=== PATIENT | female | born 1990 | race Hispanic/Latino ===

== ENCOUNTER 2018-01-30 11:53 | Inpatient (IN) | payer MEDICAID, OTHER ==
[2018-01-30] MEDS ORDERED: NACL 0.9% 1000 ML 2,000 ML IV ONE ×2 (12:36→13:46)
[2018-01-30] MEDS ORDERED: D50W (25GM) Syringe IV PRN (12:45)
[2018-01-30] MEDS ORDERED: ZOFRAN ODT ONE (12:46)
[2018-01-30] MEDS ORDERED: XYLOCAINE 2% INFILTRATI ONE (12:55)
[2018-01-30 12:57] LABS: Basophils # (Auto) 0.1 K/mm3 (0.0-0.1); Basophils % (Auto) 0.7 % (0.0-1.8); Eosinophils # (Auto) 0.1 K/mm3 (0.0-0.4); Eosinophils % (Auto) 0.5 % (0.0-4.3); Lymphocytes # (Auto) 2.5 K/mm3 (1.2-5.4); Lymphocytes % (Auto) 24.8 % (13.4-35.0); Mean Corpuscular HGB Conc 29 % (30-34); Mean Corpuscular Hemoglobin 29 pg (28-32); Mean Corpuscular Volume 101 fl (79-97); Monocytes # (Auto) 0.5 K/mm3 (0.0-0.8); Platelet Count 459 K/mm3 (140-440); Red Blood Count 4.27 M/mm3 (3.65-5.03); Red Cell Distribution Width 16.4 % (13.2-15.2)
[2018-01-30 12:58] LABS: Hematocrit 43.2 % (30.3-42.9); Hemoglobin 12.4 gm/dl (10.1-14.3)
[2018-01-30] MEDS ORDERED: ZOFRAN IV ONE (12:58)
[2018-01-30] MEDS ORDERED: MORPHINE IV ONE (12:58)
[2018-01-30] MEDS ORDERED: HumuLIN R 100 UNITS in NACL 0.9% 99 ML IV SCH (13:00)
[2018-01-30 13:16] LABS: Calcium 9.5 mg/dL (8.4-10.2)
[2018-01-30 13:17] LABS: INR 0.98 (0.87-1.13)
[2018-01-30 13:18] LABS: Partial Thromboplastin Time 22.4 Sec. (24.2-36.6)
[2018-01-30 13:20] LABS: Creatine Kinase MB 1.2 ng/mL (0.0-4.0)
[2018-01-30 13:21] LABS: Bilirubin,Direct 0.2 mg/dL (0-0.2)
[2018-01-30] MEDS ORDERED: PROTONIX IV ONE (13:30)
--- NOTE | 2018-01-30 13:47 | History and Physical Report ---
History of Present Illness Chief complaint: She is sick again History of present illness: 27 YO Female with DM, HTN, Seizure Disorder, Psychosis, Nicotine Dependence, IGA Deficiency, MVP, Medication Noncompliance presents to ED for evaluation. Pt is confused and unable to provide history. Pt history provided by family whi is at bedside during exam and interview. As per family, the patient was released from the ICU as [facility] on Saturday S/P treatment for DKA. The patient has not taken her medication since discharge. Pt was noticed by family to be confused, and ill appearing. Pt was transported to [facility] by family. Pt seen and evaluated in ED and found to have DKA with coma, as well as severe metabolic acidosis. No reports of fever, chills, CP, Palpitation, NVD, Syncope, BRBPR, Seizures, Trauma, or recent ill contacts. Past History Past Medical History: diabetes, hypertension, seizures, other (DM, HTN, Seizure Disorder, Psychosis, Nicotine Dependence, IGA Deficiency, MVP, Medication Noncompliance) Past Surgical History: cholecystectomy, tonsillectomy Social history: single, smoking Family history: hypertension Medications and Allergies Allergies Allergy/AdvReac Type Severity Reaction Status Date / Time clarithromycin [From Biaxin] Allergy Hives Verified 09/06/15 18:49 erythromycin base Allergy Hives Verified 09/06/15 18:49 ketorolac [From Toradol] Allergy Bleeding Verified 01/30/18 12:00 nalbuphine HCl [From Nubain] Allergy Hives Verified 01/19/16 22:28 Penicillins Allergy Hives Verified 09/06/15 18:49 Sulfa (Sulfonamide Allergy Hives Verified 09/06/15 18:49 Antibiotics) tramadol Allergy Angioedema Verified 01/30/18 12:00 Home Medications Medication Instructions Recorded Confirmed Last Taken Type Cyclobenzaprine [Flexeril 10 MG 10 mg PO TID PRN #15 tablet 04/04/16 Unknown Rx TAB] HYDROcodone/APAP 5-325 [[place] 1 each PO Q6HR PRN #15 tablet 04/04/16 Unknown Rx 5-325 mg TAB] Insulin Aspart [Novolog] 5 unit SQ AC #100 ml 04/04/16 Unknown Rx Insulin Glulisine [Apidra] 1 dose SUB-Q ACHS #100 units 04/04/16 Unknown Rx Levofloxacin [Levaquin] 750 mg PO QDAY #5 tablet 04/04/16 Unknown Rx Nicotine [Habitrol] 14 mg TD QDAY #14 patch 04/04/16 Unknown Rx levETIRAcetam [Keppra TAB] 500 mg PO BID #60 tablet 04/04/16 Unknown Rx Active Meds: Active Medications Acetaminophen/Hydrocodone Bitart ([place] 5/325) 1 each PO Q6HR PRN PRN Reason: Pain Cyclobenzaprine HCl (Flexeril) 10 mg PO TID PRN PRN Reason: back pain Dextrose (D50w (25gm) Syringe) 0 ml IV ONCE PRN PRN Reason: Hypoglycemia Sodium Chloride (Nacl 0.9% 1000 Ml) 2,000 mls @ 999 mls/hr IV BOLUS ONE Stop: 01/30/18 14:36 Last Admin: 01/30/18 12:45 Dose: 999 mls/hr Insulin Human Regular 100 (units/ Sodium Chloride) 100 mls @ 1 mls/hr IV TITR LESTER; Protocol Aztreonam 500 mg/ Sodium (Chloride) 50 mls @ 50 mls/hr IV Q12HR LESTER; Protocol Levetiracetam (Keppra) 500 mg PO BID LESTER Nicotine (Habitrol) 14 mg TD QDAY LESTER Sodium Chloride (Sodium Chloride Flush Syringe 10 Ml) 10 ml IV BID LESTER Sodium Chloride (Sodium Chloride Flush Syringe 10 Ml) 10 ml IV PRN PRN PRN Reason: LINE FLUSH Vancomycin HCl (Vancomycin Pharmacy To Dose) 1 each IV PKCONSULT LESTER; Protocol Review of Systems ROS unobtainable: due to mental status Exam - Constitutional Vitals: Temp Pulse Resp BP Pulse Ox 138 H 34 H 134/67 100 01/30/18 12:45 01/30/18 12:45 01/30/18 12:45 01/30/18 12:45 General appearance: Present: severe distress - EENT Eyes: Present: miosis - Neck Neck: Present: supple, normal ROM - Respiratory Respiratory: bilateral: CTA - Cardiovascular Rhythm: other (tachycardia) Heart Sounds: Present: S1 & S2. Absent: rub, click - Extremities Extremities: pulses symmetrical, No edema Peripheral Pulses: within normal limits - Abdominal General gastrointestinal: Present: soft, non-tender, non-distended, normal bowel sounds Female genitourinary: Present: normal - Integumentary Integumentary: Present: clear, dry, clammy, decreased turgor - Musculoskeletal Musculoskeletal: generalized weakness - Psychiatric Psychiatric: no intact judgment & insight, no memory intact - Neurologic Neurologic: moves all extremities, no gait normal Results - Labs CBC & Chem 7: 01/30/18 12:28 01/30/18 15:06 Labs: Abnormal lab results 01/30/18 01/30/18 01/30/18 Range/Units 12:28 12:28 12:28 Hct 43.2 H (30.3-42.9) % MCV 101 H (79-97) fl MCHC 29 L (30-34) % RDW 16.4 H (13.2-15.2) % Plt Count 459 H (140-440) K/mm3 APTT (24.2-36.6) Sec. VBG pH 7.080 L* (7.320-7.420) Sodium (137-145) mmol/L Potassium (3.6-5.0) mmol/L Chloride (98-107) mmol/L Carbon Dioxide (22-30) mmol/L Glucose (65-100) mg/dL Phosphorus (2.5-4.5) mg/dL Total Creatine Kinase 23 L (30-135) units/L CK-MB (CK-2) Rel Index 5.2 H (0-4) Lipase 9 L (13-60) units/L 01/30/18 01/30/18 Range/Units 12:28 12:49 Hct (30.3-42.9) % MCV (79-97) fl MCHC (30-34) % RDW (13.2-15.2) % Plt Count (140-440) K/mm3 APTT 22.4 L (24.2-36.6) Sec. VBG pH (7.320-7.420) Sodium 132 L (137-145) mmol/L Potassium 5.2 H (3.6-5.0) mmol/L Chloride 86.2 L (98-107) mmol/L Carbon Dioxide 3 L* (22-30) mmol/L Glucose 614 H* (65-100) mg/dL Phosphorus 5.40 H (2.5-4.5) mg/dL Total Creatine Kinase (30-135) units/L CK-MB (CK-2) Rel Index (0-4) Lipase (13-60) units/L Assessment and Plan - Patient Problems (1) DKA, type 1 Current Visit: Yes Status: Acute Qualifiers: Diabetes mellitus complication detail: with coma Qualified Code(s): E10.11 - Type 1 diabetes mellitus with ketoacidosis with coma Plan to address problem: DKA Protocol: IVF resuscitation, insulin drip, monitor uop q shift,monitor anion gap, serial BMP, monitor serum potassium, replete as per protocol, The high probability of a clinically significant, sudden or life threatening deterioration of the [endocrine, renal,pulmonary, neuro ] system(s) required my full and direct attention, intervention and personal management. The aggregate critical care time was [65] minutes. This time is in addition to time spent performing reported procedures but includes the following: [x] Data Review and interpretation [x] Patient assessment and monitoring of vital signs [x] Documentation [x] Medication orders and management (2) Encephalopathy Current Visit: Yes Status: Acute Plan to address problem: CT Head, neuro checks, seizure precautions, treat DKA (3) Metabolic acidosis Current Visit: Yes Status: Acute Plan to address problem: IVF resuscitation, treat dka, serial bmp, (4) Psychosis Current Visit: Yes Status: Acute Qualifiers: Psychosis type: brief psychotic disorder Qualified Code(s): F23 - Brief psychotic disorder Plan to address problem: Psych consulted for evaluation, and medication recommendations, (5) Seizure Current Visit: Yes Status: Acute Plan to address problem: IV keppra therapy, change to PO when patient tolerating diet. (6) DVT prophylaxis Current Visit: Yes Status: Acute Plan to address problem: SCD to BLE, while in bed.
[2018-01-30] MEDS ORDERED: VANCOMYCIN PHARMACY TO DOSE IV SCH (14:00)
--- NOTE | 2018-01-30 14:00 | Emergency Department Report ---
ED General Adult HPI - General Chief complaint: Hyperglycemia Stated complaint: HYPERGLYCEMIA Time Seen by Provider: 01/30/18 12:33 Source: patient Mode of arrival: Ambulatory Limitations: No Limitations - History of Present Illness Initial comments: The patient is a 27-year-old female insulin-dependent diabetic who was released from the ICU as [facility] on Saturday. The family states that she was in the ICU for 8 days because her "sugar was up". They deny being told that the patient was suffering from any sort of infection. The patient has a paucity of peripheral veins by nursing staff. In fact only could find was accessed in her right shoulder 22-gauge. I asked the patient if she had any sort of PICC line or central line at [place] she answered no. She also states that she has never suffered from any life-threatening infections. She states that she was supposed to have endoscopy but has not arranged for that yet and has an appointment coming up with GI. She complains of abdominal pain. She states that her sugar has been quite elevated for the last at least 2 days. She states "my insulin is not working". She denies fever or chills. She is obviously Kussmaul breathing and somewhat confused but able to answer direct questions. -: days(s) Location: abdomen Associated Symptoms: nausea/vomiting (no apparent GI bleeding. She) - Related Data Previous Rx's Medication Instructions Recorded Last Taken Type Cyclobenzaprine [Flexeril 10 MG 10 mg PO TID PRN #15 tablet 04/04/16 Unknown Rx TAB] HYDROcodone/APAP 5-325 [[place] 1 each PO Q6HR PRN #15 tablet 04/04/16 Unknown Rx 5-325 mg TAB] Insulin Aspart [Novolog] 5 unit SQ AC #100 ml 04/04/16 Unknown Rx Insulin Glulisine [Apidra] 1 dose SUB-Q ACHS #100 units 04/04/16 Unknown Rx Levofloxacin [Levaquin] 750 mg PO QDAY #5 tablet 04/04/16 Unknown Rx Nicotine [Habitrol] 14 mg TD QDAY #14 patch 04/04/16 Unknown Rx levETIRAcetam [Keppra TAB] 500 mg PO BID #60 tablet 04/04/16 Unknown Rx Allergies Allergy/AdvReac Type Severity Reaction Status Date / Time clarithromycin [From Biaxin] Allergy Hives Verified 09/06/15 18:49 erythromycin base Allergy Hives Verified 09/06/15 18:49 ketorolac [From Toradol] Allergy Bleeding Verified 01/30/18 12:00 nalbuphine HCl [From Nubain] Allergy Hives Verified 01/19/16 22:28 Penicillins Allergy Hives Verified 09/06/15 18:49 Sulfa (Sulfonamide Allergy Hives Verified 09/06/15 18:49 Antibiotics) tramadol Allergy Angioedema Verified 01/30/18 12:00 ED Review of Systems ROS: Stated complaint: HYPERGLYCEMIA Other details as noted in HPI Comment: Unobtainable due to pts medical conditions (Limited secondary to mental status) Gastrointestinal: abdominal pain ED Past Medical Hx - Past Medical History Hx Hypertension: Yes Hx Congestive Heart Failure: No Hx Diabetes: Yes Hx Seizures: Yes Hx Asthma: Yes Additional medical history: IgA deficiency, heart murmur, mitral valve prolapse , left ovarian cyst - Surgical History Hx Cholecystectomy: Yes Additional Surgical History: 9 sets of tubes in ears. Tonsilectomy and adenoidectomy. - Social History Smoking Status: Current Every Day Smoker Substance Use Type: None - Medications Home Medications: Home Medications Medication Instructions Recorded Confirmed Last Taken Type Cyclobenzaprine [Flexeril 10 MG 10 mg PO TID PRN #15 tablet 04/04/16 Unknown Rx TAB] HYDROcodone/APAP 5-325 [[place] 1 each PO Q6HR PRN #15 tablet 04/04/16 Unknown Rx 5-325 mg TAB] Insulin Aspart [Novolog] 5 unit SQ AC #100 ml 04/04/16 Unknown Rx Insulin Glulisine [Apidra] 1 dose SUB-Q ACHS #100 units 04/04/16 Unknown Rx Levofloxacin [Levaquin] 750 mg PO QDAY #5 tablet 04/04/16 Unknown Rx Nicotine [Habitrol] 14 mg TD QDAY #14 patch 04/04/16 Unknown Rx levETIRAcetam [Keppra TAB] 500 mg PO BID #60 tablet 04/04/16 Unknown Rx ED Physical Exam - General Limitations: No Limitations, Altered Mental Status General appearance: alert, in no apparent distress - Head Head exam: Present: atraumatic, normocephalic - Eye Eye exam: Present: normal appearance, PERRL, EOMI. Absent: scleral icterus - ENT ENT exam: Present: mucous membranes dry - Neck Neck exam: Present: normal inspection. Absent: tenderness, meningismus - Respiratory Respiratory exam: Present: normal lung sounds bilaterally, other (Kussmaul breathing). Absent: respiratory distress - Cardiovascular Cardiovascular Exam: Present: normal rhythm, tachycardia. Absent: systolic murmur, diastolic murmur, rubs, gallop - GI/Abdominal GI/Abdominal exam: Present: soft, tenderness (some discomfort noted left lower quadrant), normal bowel sounds. Absent: distended, guarding, rebound, rigid - Extremities Exam Extremities exam: Present: normal inspection - Back Exam Back exam: Present: other (multiple abrasions noted on the patient's back). Absent: CVA tenderness (R), CVA tenderness (L), muscle spasm, paraspinal tenderness, vertebral tenderness - Neurological Exam Neurological exam: Present: CN II-XII intact (as tested). Absent: motor sensory deficit - Psychiatric Psychiatric exam: Present: agitated, anxious - Skin Skin exam: Present: warm, dry, normal color, abrasion. Absent: rash ED Course Vital Signs 01/30/18 01/30/18 01/30/18 12:00 12:45 14:03 Pulse Rate 142 H 138 H 120 H Respiratory 24 34 H 24 Rate Blood Pressure 123/68 Blood Pressure 134/67 117/78 [Left] O2 Sat by Pulse 100 100 100 Oximetry - Reevaluation(s) Reevaluation #1: Patient is obviously signature volume depleted. She was given several liters of normal saline. Insulin drip was initiated. Empiric antibiotics were ordered after consultation with the hospitalist Dr. Rasmussen. I do not see a source infection. The urinalysis was not yet available. 01/30/18 14:03 - Central Line Placement Left IJ Consent Obtained: verbal consent Time Out Performed: No Patient Placed on Monitor/Pulse Ox: Yes MD Prep: mask, gown, gloves Central Line Prep: Chlorhexidine scrub Local Anesthesia Used: Lidocaine 1% Amount of Anesthesia Used (mls): 4 Ultrasound Used for Placement: No Central Line Lumen Inserted: triple Bloods Obtained for Lab: No Central Line Position: good blood return, all ports aspirated, flus, sutured in place with 3-0 Dressing Applied: Tegaderm Post Procedure X-Ray: tip of catheter in good p Patient Tolerated Procedure: well Complications: none Additional Comments: Single puncture dark red nonpulsatile blood. Seldinger technique without difficulty. ED Medical Decision Making - Lab Data Result diagrams: 01/30/18 12:28 01/30/18 12:28 Laboratory Results - last 24 hr 01/30/18 01/30/18 01/30/18 12:28 12:28 12:28 WBC 10.1 RBC 4.27 Hgb 12.4 Hct 43.2 H MCV 101 H MCH 29 MCHC 29 L RDW 16.4 H Plt Count 459 H Lymph % (Auto) 24.8 [place] % (Auto) 5.0 Eos % (Auto) 0.5 Baso % (Auto) 0.7 Lymph # 2.5 [place] # 0.5 Eos # 0.1 Baso # 0.1 Seg Neutrophils % 69.0 Seg Neutrophils # 7.0 PT INR APTT VBG pH 7.080 L* Sodium Potassium Chloride Carbon Dioxide Anion Gap BUN Creatinine Estimated GFR BUN/Creatinine Ratio Glucose Lactic Acid Calcium Phosphorus Magnesium 1.90 Total Bilirubin 0.70 Direct Bilirubin 0.2 Indirect Bilirubin 0.5 AST 17 ALT 14 Alkaline Phosphatase 127 Total Creatine Kinase 23 L CK-MB (CK-2) 1.2 CK-MB (CK-2) Rel Index 5.2 H NT-Pro-B Natriuret Pep 85.52 Total Protein 7.3 Albumin 4.0 Albumin/Globulin Ratio 1.2 Lipase 9 L Urine Bilirubin Urine RBC (Auto) U Epithel Cells (Auto) 01/30/18 01/30/18 01/30/18 12:28 12:49 12:49 WBC RBC Hgb Hct MCV MCH MCHC RDW Plt Count Lymph % (Auto) [place] % (Auto) Eos % (Auto) Baso % (Auto) Lymph # [place] # Eos # Baso # Seg Neutrophils % Seg Neutrophils # PT 13.5 INR 0.98 APTT 22.4 L VBG pH Sodium 132 L Potassium 5.2 H Chloride 86.2 L Carbon Dioxide 3 L* Anion Gap 48 BUN 13 Creatinine 1.1 Estimated GFR 59 BUN/Creatinine Ratio 12 Glucose 614 H* Lactic Acid 1.70 Calcium 9.5 Phosphorus 5.40 H Magnesium 1.90 Total Bilirubin Direct Bilirubin Indirect Bilirubin AST ALT Alkaline Phosphatase Total Creatine Kinase CK-MB (CK-2) CK-MB (CK-2) Rel Index NT-Pro-B Natriuret Pep Total Protein Albumin Albumin/Globulin Ratio Lipase Urine Bilirubin Urine RBC (Auto) U Epithel Cells (Auto) 01/30/18 13:54 WBC RBC Hgb Hct MCV MCH MCHC RDW Plt Count Lymph % (Auto) [place] % (Auto) Eos % (Auto) Baso % (Auto) Lymph # [place] # Eos # Baso # Seg Neutrophils % Seg Neutrophils # PT INR APTT VBG pH Sodium Potassium Chloride Carbon Dioxide Anion Gap BUN Creatinine Estimated GFR BUN/Creatinine Ratio Glucose Lactic Acid Calcium Phosphorus Magnesium Total Bilirubin Direct Bilirubin Indirect Bilirubin AST ALT Alkaline Phosphatase Total Creatine Kinase CK-MB (CK-2) CK-MB (CK-2) Rel Index NT-Pro-B Natriuret Pep Total Protein Albumin Albumin/Globulin Ratio Lipase Urine Bilirubin Neg Urine RBC (Auto) 3.0 U Epithel Cells (Auto) 5.0 Laboratory Results - last 24 hr 01/30/18 01/30/18 01/30/18 12:28 12:28 12:28 WBC 10.1 RBC 4.27 Hgb 12.4 Hct 43.2 H MCV 101 H MCH 29 MCHC 29 L RDW 16.4 H Plt Count 459 H Lymph % (Auto) 24.8 [place] % (Auto) 5.0 Eos % (Auto) 0.5 Baso % (Auto) 0.7 Lymph # 2.5 [place] # 0.5 Eos # 0.1 Baso # 0.1 Seg Neutrophils % 69.0 Seg Neutrophils # 7.0 PT INR APTT VBG pH 7.080 L* Sodium Potassium Chloride Carbon Dioxide Anion Gap BUN Creatinine Estimated GFR BUN/Creatinine Ratio Glucose Lactic Acid Calcium Phosphorus Magnesium 1.90 Total Bilirubin 0.70 Direct Bilirubin 0.2 Indirect Bilirubin 0.5 AST 17 ALT 14 Alkaline Phosphatase 127 Total Creatine Kinase 23 L CK-MB (CK-2) 1.2 CK-MB (CK-2) Rel Index 5.2 H NT-Pro-B Natriuret Pep 85.52 Total Protein 7.3 Albumin 4.0 Albumin/Globulin Ratio 1.2 Lipase 9 L Urine Color Urine Turbidity Urine pH Ur Specific [place] Urine Protein Urine Glucose (UA) Urine Ketones Urine Blood Urine Nitrite Urine Bilirubin Urine Urobilinogen Ur Leukocyte Esterase Urine WBC (Auto) Urine RBC (Auto) U Epithel Cells (Auto) Urine Mucus Urine HCG, Qual Urine Opiates Screen Urine Methadone Screen Ur Barbiturates Screen Ur Phencyclidine Scrn Ur Amphetamines Screen U Benzodiazepines Scrn Urine Cocaine Screen U Marijuana (THC) Screen Drugs of Abuse Note 01/30/18 01/30/18 01/30/18 12:28 12:49 12:49 WBC RBC Hgb Hct MCV MCH MCHC RDW Plt Count Lymph % (Auto) [place] % (Auto) Eos % (Auto) Baso % (Auto) Lymph # [place] # Eos # Baso # Seg Neutrophils % Seg Neutrophils # PT 13.5 INR 0.98 APTT 22.4 L VBG pH Sodium 132 L Potassium 5.2 H Chloride 86.2 L Carbon Dioxide 3 L* Anion Gap 48 BUN 13 Creatinine 1.1 Estimated GFR 59 BUN/Creatinine Ratio 12 Glucose 614 H* Lactic Acid 1.70 Calcium 9.5 Phosphorus 5.40 H Magnesium 1.90 Total Bilirubin Direct Bilirubin Indirect Bilirubin AST ALT Alkaline Phosphatase Total Creatine Kinase CK-MB (CK-2) CK-MB (CK-2) Rel Index NT-Pro-B Natriuret Pep Total Protein Albumin Albumin/Globulin Ratio Lipase Urine Color Urine Turbidity Urine pH Ur Specific [place] Urine Protein Urine Glucose (UA) Urine Ketones Urine Blood Urine Nitrite Urine Bilirubin Urine Urobilinogen Ur Leukocyte Esterase Urine WBC (Auto) Urine RBC (Auto) U Epithel Cells (Auto) Urine Mucus Urine HCG, Qual Urine Opiates Screen Urine Methadone Screen Ur Barbiturates Screen Ur Phencyclidine Scrn Ur Amphetamines Screen U Benzodiazepines Scrn Urine Cocaine Screen U Marijuana (THC) Screen Drugs of Abuse Note 01/30/18 01/30/18 13:54 13:54 WBC RBC Hgb Hct MCV MCH MCHC RDW Plt Count Lymph % (Auto) [place] % (Auto) Eos % (Auto) Baso % (Auto) Lymph # [place] # Eos # Baso # Seg Neutrophils % Seg Neutrophils # PT INR APTT VBG pH Sodium Potassium Chloride Carbon Dioxide Anion Gap BUN Creatinine Estimated GFR BUN/Creatinine Ratio Glucose Lactic Acid Calcium Phosphorus Magnesium Total Bilirubin Direct Bilirubin Indirect Bilirubin AST ALT Alkaline Phosphatase Total Creatine Kinase CK-MB (CK-2) CK-MB (CK-2) Rel Index NT-Pro-B Natriuret Pep Total Protein Albumin Albumin/Globulin Ratio Lipase Urine Color Yellow Urine Turbidity Clear Urine pH 5.0 Ur Specific [place] 1.016 Urine Protein <15 mg/dl Urine Glucose (UA) >=500 Urine Ketones 80 Urine Blood Neg Urine Nitrite Neg Urine Bilirubin Neg Urine Urobilinogen < 2.0 Ur Leukocyte Esterase Neg Urine WBC (Auto) 1.0 Urine RBC (Auto) 3.0 U Epithel Cells (Auto) 5.0 Urine Mucus Few Urine HCG, Qual Negative Urine Opiates Screen Presumptive positive Urine Methadone Screen Presumptive negative Ur Barbiturates Screen Presumptive negative Ur Phencyclidine Scrn Presumptive negative Ur Amphetamines Screen Presumptive positive U Benzodiazepines Scrn Presumptive negative Urine Cocaine Screen Presumptive negative U Marijuana (THC) Screen Presumptive negative Drugs of Abuse Note Disclamer - EKG Data -: EKG Interpreted by Me EKG shows normal: sinus rhythm - EKG Data Interpretation: other (probably insignificant Q's inferior leads. Increased voltage consider LVH. Nonspecific ST T wave changes. Consider hyperkalemia. Sinus tachycardia. Normal axis.) Critical Care Time: Yes Critical care time in (mins) excluding proc time.: 110 Critical care attestation.: If time is entered above; I have spent that time in minutes in the direct care of this critically ill patient, excluding procedure time. ED Disposition Clinical Impression: DKA, type 1 Qualifiers: Diabetes mellitus complication detail: with coma Qualified Code(s): E10.11 - Type 1 diabetes mellitus with ketoacidosis with coma Altered mental status Qualifiers: Altered mental status type: delirium Qualified Code(s): R41.0 - Disorientation , unspecified Disposition: DC-09 OP ADMIT IP TO THIS HOSP Is pt being admited?: Yes Does the pt Need Aspirin: Yes Condition: Stable Instructions: Diabetic Ketoacidosis (ED) Time of Disposition: 14:55
[2018-01-30] MEDS ORDERED: BOOSTRIX IM ONE (14:02)
[2018-01-30 14:03] LABS: Bilirubin,Urine NEG (Negative); Blood,Urine NEG (Negative); Color,Urine Yellow (Yellow); Protein,Urine <15 mg/dL mg/dL (Negative); Urobilinogen,Urine < 2.0 mg/dL (<2.0)
[2018-01-30 14:04] LABS: HCG Qualitative,Urine Negative (Negative); Mucus,Urine FEW /HPF
[2018-01-30 14:11] LABS: Benzodiazepines Screen,Urine PRESUMPTIVE NEGATIVE; Cannabinoid Screen,Urine PRESUMPTIVE NEGATIVE; Cocaine Screen,Urine PRESUMPTIVE NEGATIVE; Methadone Screen,Urine PRESUMPTIVE NEGATIVE
[2018-01-30] MEDS ORDERED: VANCOMYCIN 1,250 MG in NACL 0.9% 250ML 250 ML IV ONE (14:15)
[2018-01-30 14:23] LABS: Amphetamine Screen,Urine PRESUMPTIVE POSITIVE; Opiate Screen,Urine PRESUMPTIVE POSITIVE
[2018-01-30] MEDS: NORCO 5/325 PO PRN ×2 (14:59→23:11)
[2018-01-30] MEDS: FLEXERIL PO PRN ×2 (14:59→23:11)
[2018-01-30] MEDS: NACL 0.9% 1000 ML 1,000 ML IV SCH (15:00)
[2018-01-30 15:50] LABS: BUN/Creatinine Ratio 16; Blood Urea Nitrogen 14 mg/dL (7-17); Hemolysis Index 5
--- NOTE | 2018-01-30 19:12 | XRay Report ---
FINAL REPORT PROCEDURE: Supine AP chest x-ray TECHNIQUE: Chest radiograph anteroposterior view. CPT 48609 HISTORY: nahid upt ordered COMPARISON: No prior studies are available for comparison. FINDINGS: The heart is magnified due to projection appears to be normal size. The pulmonary vasculature appears normal. No evidence of pulmonary edema pleural effusion infiltrate or mass. No evidence of pneumothorax. Left jugular central venous line in place. The tip projects in the proximal SVC. No acute bony abnormalities are identified IMPRESSION: Central venous line in place. No acute abnormalities are identified. No evidence of pneumothorax..
[2018-01-30] MEDS ORDERED: KEPPRA PO SCH (22:00)
[2018-01-30] MEDS ORDERED: AZACTAM IV SCH (22:00)
[2018-01-30] MEDS ORDERED: NACL 0.9% IV SCH (22:00)
[2018-01-30] MEDS: KEPPRA PO SCH (22:15)
[2018-01-30] MEDS: AZACTAM IV SCH (22:15)
[2018-01-30] MEDS: NACL 0.9% IV SCH (22:15)
[2018-01-30] MEDS ORDERED: D5W/0.45% NACL/KCL 20 MEQ 20 MEQ/1,000 ML BAG IV ONE (23:22)
[2018-01-31] MEDS: VANCOMYCIN/0.45 NS 1 GM/250 ML 1 GM/250 ML BAG IV SCH ×2 (02:12→13:30)
[2018-01-31] MEDS ORDERED: D5W/0.45% NACL/KCL 20 MEQ 20 MEQ/1,000 ML BAG IV SCH (04:00)
[2018-01-31 04:04] LABS: BUN/Creatinine Ratio 11; Blood Urea Nitrogen 8 mg/dL (7-17); Calcium 7.7 mg/dL (8.4-10.2); Hemolysis Index 1
[2018-01-31] MEDS: KEPPRA 750 MG in NACL 0.9% 100 ML IV SCH ×3 (09:33→22:04)
[2018-01-31] MEDS: HABITROL TD SCH (09:34)
[2018-01-31] MEDS: SODIUM CHLORIDE FLUSH SYRINGE 10 ML IV SCH ×3 (09:34→22:16)
[2018-01-31] MEDS: KEPPRA PO SCH ×2 (09:52→22:17)
[2018-01-31] MEDS: AZACTAM IV SCH ×4 (09:54→22:15)
[2018-01-31] MEDS: NACL 0.9% IV SCH ×4 (09:54→22:15)
--- NOTE | 2018-01-31 10:04 | Consultation ---
History of Present Illness Consult date: 01/31/18 Requesting physician: CHELSY BISHOP Reason for consult: other (DKA) History of present illness: PULMONARY/CCM CONSULT NOTE (Full dictation # [id number]) Please see dictated notes for full details Past History Past Medical History: diabetes, hypertension, seizures, other (DM, HTN, Seizure Disorder, Psychosis, Nicotine Dependence, IGA Deficiency, MVP, Medication Noncompliance) Past Surgical History: cholecystectomy, tonsillectomy Social history: single, smoking Family history: hypertension Medications and Allergies Allergies Allergy/AdvReac Type Severity Reaction Status Date / Time clarithromycin [From Biaxin] Allergy Hives Verified 09/06/15 18:49 erythromycin base Allergy Hives Verified 09/06/15 18:49 ketorolac [From Toradol] Allergy Bleeding Verified 01/30/18 12:00 nalbuphine HCl [From Nubain] Allergy Hives Verified 01/19/16 22:28 Penicillins Allergy Hives Verified 09/06/15 18:49 Sulfa (Sulfonamide Allergy Hives Verified 09/06/15 18:49 Antibiotics) tramadol Allergy Angioedema Verified 01/30/18 12:00 Home Medications Medication Instructions Recorded Confirmed Last Taken Type Cyclobenzaprine [Flexeril 10 MG 10 mg PO TID PRN #15 tablet 04/04/16 Unknown Rx TAB] HYDROcodone/APAP 5-325 [[place] 1 each PO Q6HR PRN #15 tablet 04/04/16 Unknown Rx 5-325 mg TAB] Insulin Aspart [Novolog] 5 unit SQ AC #100 ml 04/04/16 Unknown Rx Insulin Glulisine [Apidra] 1 dose SUB-Q ACHS #100 units 04/04/16 Unknown Rx Levofloxacin [Levaquin] 750 mg PO QDAY #5 tablet 04/04/16 Unknown Rx Nicotine [Habitrol] 14 mg TD QDAY #14 patch 04/04/16 Unknown Rx levETIRAcetam [Keppra TAB] 500 mg PO BID #60 tablet 04/04/16 Unknown Rx Active Meds: Active Medications Acetaminophen/Hydrocodone Bitart ([place] 5/325) 1 each PO Q6HR PRN PRN Reason: Pain Last Admin: 01/30/18 23:11 Dose: 1 each Cyclobenzaprine HCl (Flexeril) 10 mg PO TID PRN PRN Reason: back pain Last Admin: 01/30/18 23:11 Dose: 10 mg Dextrose (D50w (25gm) Syringe) 0 ml IV ONCE PRN PRN Reason: Hypoglycemia Insulin Human Regular 100 (units/ Sodium Chloride) 100 mls @ 1 mls/hr IV TITR [facility]; Protocol Last Titration: 01/31/18 08:18 Dose: 0 units/hr, 0 mls/hr Vancomycin HCl (Vancomycin/0.45 Ns 1 Gm/250 Ml) 1 gm in 250 mls @ 167.007 mls/ hr IV Q12H [facility] Last Admin: 01/31/18 02:12 Dose: 167.007 mls/hr Levetiracetam 750 mg/ Sodium (Chloride) 107.5 mls @ 400 mls/hr IV Q12HR [facility] Last Admin: 01/31/18 09:51 Dose: Not Given Aztreonam 500 mg/ Sodium (Chloride) 20 mls @ 2 mls/min IV Q12HR [facility] Last Admin: 01/31/18 09:54 Dose: 2 mls/min Sodium Chloride (Nacl 0.9% 1000 Ml) 1,000 mls @ 150 mls/hr IV DIRECT [facility] Last Admin: 01/30/18 15:00 Dose: 150 mls/hr Potassium Chloride/Dextrose/Sod Cl (D5w/0.45% Nacl/Kcl 20 Meq) 20 meq in 1,000 mls @ 125 mls/hr IV DIRECT [facility] Last Admin: 01/31/18 08:02 Dose: 125 mls/hr Levetiracetam (Keppra) 500 mg PO BID [facility] Last Admin: 01/31/18 09:52 Dose: Not Given Nicotine (Habitrol) 14 mg TD QDAY [facility] Last Admin: 01/31/18 09:34 Dose: 14 mg Sodium Chloride (Sodium Chloride Flush Syringe 10 Ml) 10 ml IV BID [facility] Last Admin: 01/31/18 09:51 Dose: Not Given Sodium Chloride (Sodium Chloride Flush Syringe 10 Ml) 10 ml IV PRN PRN PRN Reason: LINE FLUSH Vancomycin HCl (Vancomycin Pharmacy To Dose) 1 each IV PKCONSULT [facility]; Protocol Physical Examination Vital signs: Vital Signs Pulse Resp BP Pulse Ox 142 H 24 123/68 100 01/30/18 12:00 01/30/18 12:00 01/30/18 12:00 01/30/18 12:00 Results - Laboratory Findings CBC and BMP: 01/30/18 12:28 02/01/18 08:17 PT/INR, D-dimer PT 13.5 Sec. (12.2-14.9) 01/30/18 12:49 INR 0.98 (0.87-1.13) 01/30/18 12:49 Abnormal lab findings: Abnormal Labs 01/30/18 01/30/18 01/30/18 12:00 12:28 12:28 Hct 43.2 H MCV 101 H MCHC 29 L RDW 16.4 H Plt Count 459 H APTT VBG pH 7.080 L* Sodium Potassium Chloride Carbon Dioxide Glucose POC Glucose 412 H Calcium Phosphorus Total Creatine Kinase CK-MB (CK-2) Rel Index Lipase 01/30/18 01/30/18 01/30/18 12:28 12:28 12:49 Hct MCV MCHC RDW Plt Count APTT 22.4 L VBG pH Sodium 132 L Potassium 5.2 H Chloride 86.2 L Carbon Dioxide 3 L* Glucose 614 H* POC Glucose Calcium Phosphorus 5.40 H Total Creatine Kinase 23 L CK-MB (CK-2) Rel Index 5.2 H Lipase 9 L 01/30/18 01/30/18 01/30/18 15:06 15:11 16:21 Hct MCV MCHC RDW Plt Count APTT VBG pH Sodium 136 L Potassium Chloride 95.3 L Carbon Dioxide 4 L* Glucose 491 H POC Glucose 385 H 299 H Calcium 8.0 L D Phosphorus Total Creatine Kinase CK-MB (CK-2) Rel Index Lipase 01/30/18 01/30/18 01/30/18 17:36 18:43 19:15 Hct MCV MCHC RDW Plt Count APTT VBG pH Sodium Potassium Chloride Carbon Dioxide Glucose POC Glucose 196 H 134 H 125 H Calcium Phosphorus Total Creatine Kinase CK-MB (CK-2) Rel Index Lipase 01/30/18 01/30/18 01/31/18 20:08 21:03 01:02 Hct MCV MCHC RDW Plt Count APTT VBG pH Sodium Potassium Chloride Carbon Dioxide Glucose POC Glucose 109 H 117 H 127 H Calcium Phosphorus Total Creatine Kinase CK-MB (CK-2) Rel Index Lipase 01/31/18 01/31/18 01/31/18 02:06 02:58 03:20 Hct MCV MCHC RDW Plt Count APTT VBG pH Sodium Potassium Chloride Carbon Dioxide 19 L D Glucose 140 H POC Glucose 158 H 156 H Calcium 7.7 L Phosphorus Total Creatine Kinase CK-MB (CK-2) Rel Index Lipase 01/31/18 01/31/18 01/31/18 04:01 05:10 06:05 Hct MCV MCHC RDW Plt Count APTT VBG pH Sodium Potassium Chloride Carbon Dioxide Glucose POC Glucose 129 H 133 H 130 H Calcium Phosphorus Total Creatine Kinase CK-MB (CK-2) Rel Index Lipase 01/31/18 06:48 Hct MCV MCHC RDW Plt Count APTT VBG pH Sodium Potassium Chloride Carbon Dioxide Glucose POC Glucose 132 H Calcium Phosphorus Total Creatine Kinase CK-MB (CK-2) Rel Index Lipase
[2018-01-31] MEDS: NORCO 5/325 PO PRN (13:27)
[2018-01-31 14:53] LABS: BUN/Creatinine Ratio 10; Blood Urea Nitrogen 5 mg/dL (7-17); Calcium 8.1 mg/dL (8.4-10.2); Hemolysis Index 4
[2018-01-31 14:54] LABS: BUN/Creatinine Ratio 10; Blood Urea Nitrogen 5 mg/dL (7-17); Hemolysis Index 11
[2018-01-31] MEDS ORDERED: NS 0.45/KCL 20MEQ 20 MEQ/1,000 ML BAG IV SCH (15:00)
[2018-01-31] MEDS: LANTUS SUB-Q SCH (17:09)
[2018-01-31] MEDS: HumuLIN R SUB-Q SCH ×2 (17:17→22:16)
[2018-01-31] MEDS ORDERED: REGLAN PO PRN (17:56)
--- NOTE | 2018-01-31 17:58 | Progress Note ---
Assessment and Plan / DKA, type 1 Placed on DKA Protocol: IVF resuscitation, insulin drip, monitor uop q shift, monitor anion gap, serial BMP, monitor serum potassium, replete as per protocol , AG significantly improved this morning, will stop insulin drip, place on subcutaneous insulin, will also start her on consistent carbohydrate diet Possible transfer out of the ICU today /Metabolic Encephalopathy Likely from DKA neuro checks, seizure precautions, tight control of blood glucose / Metabolic acidosis from uncontrolled blood glucose IVF resuscitation, subcutaneous insulin, serial bmp, / Psychosis Psych consulted for evaluation, and medication recommendations, / Seizure disorder IV keppra therapy, change to PO when patient tolerating diet. /Hypertension, monitor BP closely / DVT prophylaxis SCD to BLE, while in bed. Brief history: 27 YO Female with DM, HTN, Seizure Disorder, Psychosis, Nicotine Dependence, IGA Deficiency, MVP, Medication Noncompliance who was released from the ICU as [facility] on Saturday S/P treatment for DKA. The patient has not taken her medication since discharge. Pt was noticed by family to be confused, and ill appearing. Pt was transported to [facility] by family. Pt seen and evaluated in ED and found to have DKA with coma, as well as severe metabolic acidosis. Radiological test: Chest x-ray: No acute infiltrates Hospitalist Physical exam: GENERAL: well-developed and well-nourished white female lying on bed appeared to be in no discomfort. HEENT: Normocephalic. Atraumatic. No conjunctival congestion or icterus. Patient has moist mucous membranes. NECK: Supple. Trachea midline. CHEST/LUNGS: Clear to auscultated bilaterally, breathing nonlabored. No wheezes crackles or rhonchi. HEART/CARDIOVASCULAR: Regular in rate and rhythm. S1 and S2 positive. ABDOMEN: Abdomen is soft, nontender. Patient has normal bowel sounds. SKIN: There is no rash. Warm and dry. NEURO: No focal motor deficit. Follows command. MUSCULOSKELETAL: No joint effusion or tenderness. EXTRIMITY: No edema, no cyanosis or clubbing. PSYCH: Cooperative. Subjective Date of service: 01/31/18 Interval history: Patient seen and examined. Medical records and medication list reviewed. No acute event overnight noted by the RN. Patient denies any chest pain or difficulty breathing. Discussed plan of care at bedside with patient and RN. Objective - Constitutional Vitals: Vital Signs - 12hr 01/31/18 01/31/18 01/31/18 07:40 07:50 08:00 Temperature Pulse Rate 96 H 94 H 94 H Respiratory 22 22 21 Rate Blood Pressure 113/73 113/73 105/70 O2 Sat by Pulse 99 98 98 Oximetry 01/31/18 01/31/18 01/31/18 08:10 08:20 08:30 Temperature Pulse Rate 98 H 95 H 96 H Respiratory 17 18 20 Rate Blood Pressure 105/70 105/70 107/70 O2 Sat by Pulse 97 99 98 Oximetry 01/31/18 01/31/18 01/31/18 08:40 08:50 09:00 Temperature Pulse Rate 103 H 102 H 102 H Respiratory 18 20 20 Rate Blood Pressure 107/70 107/70 124/80 O2 Sat by Pulse 98 99 99 Oximetry 01/31/18 01/31/18 01/31/18 09:10 09:20 09:30 Temperature Pulse Rate 100 H 115 H 106 H Respiratory 19 13 16 Rate Blood Pressure 124/80 124/80 116/77 O2 Sat by Pulse 99 100 99 Oximetry 01/31/18 01/31/18 01/31/18 09:40 09:50 10:00 Temperature Pulse Rate 104 H 106 H 106 H Respiratory 20 19 16 Rate Blood Pressure 116/77 116/77 124/87 O2 Sat by Pulse 98 98 98 Oximetry 01/31/18 01/31/18 01/31/18 10:10 10:20 10:30 Temperature Pulse Rate 104 H 104 H 100 H Respiratory 19 19 19 Rate Blood Pressure 124/87 116/77 111/71 O2 Sat by Pulse 98 98 98 Oximetry 01/31/18 01/31/18 01/31/18 10:40 10:50 11:00 Temperature Pulse Rate 99 H 98 H 102 H Respiratory 20 20 20 Rate Blood Pressure 111/71 124/87 105/71 O2 Sat by Pulse 98 98 97 Oximetry 01/31/18 01/31/18 01/31/18 11:10 11:20 11:30 Temperature Pulse Rate 105 H 100 H 99 H Respiratory 21 18 18 Rate Blood Pressure 105/71 111/71 108/70 O2 Sat by Pulse 97 98 98 Oximetry 01/31/18 01/31/18 01/31/18 11:40 11:50 12:00 Temperature Pulse Rate 101 H 100 H 101 H Respiratory 22 19 23 Rate Blood Pressure 108/70 108/70 107/70 O2 Sat by Pulse 99 99 99 Oximetry 01/31/18 01/31/18 01/31/18 12:10 12:20 12:30 Temperature Pulse Rate 102 H 101 H 99 H Respiratory 20 17 9 L Rate Blood Pressure 107/70 107/70 115/69 O2 Sat by Pulse 99 99 99 Oximetry 01/31/18 01/31/18 01/31/18 12:40 12:50 13:00 Temperature Pulse Rate 112 H 104 H 101 H Respiratory 12 17 17 Rate Blood Pressure 115/69 115/69 123/82 O2 Sat by Pulse 100 98 99 Oximetry 01/31/18 01/31/18 01/31/18 13:10 13:20 13:30 Temperature Pulse Rate 107 H 100 H 101 H Respiratory 18 21 19 Rate Blood Pressure 123/82 123/82 116/70 O2 Sat by Pulse 99 98 97 Oximetry 01/31/18 01/31/18 01/31/18 13:40 13:50 14:00 Temperature Pulse Rate 100 H 97 H 97 H Respiratory 18 22 20 Rate Blood Pressure 116/70 116/70 112/78 O2 Sat by Pulse 99 98 97 Oximetry 01/31/18 01/31/18 01/31/18 14:10 14:20 14:30 Temperature Pulse Rate 96 H 94 H 92 H Respiratory 17 21 20 Rate Blood Pressure 112/78 112/78 120/77 O2 Sat by Pulse 99 98 98 Oximetry 01/31/18 01/31/18 01/31/18 14:40 14:50 15:00 Temperature Pulse Rate 94 H 93 H 91 H Respiratory 17 19 20 Rate Blood Pressure 120/77 120/77 113/58 O2 Sat by Pulse 99 98 97 Oximetry 01/31/18 01/31/18 01/31/18 15:10 15:20 15:30 Temperature Pulse Rate 93 H 91 H 92 H Respiratory 21 20 18 Rate Blood Pressure 113/58 113/58 111/70 O2 Sat by Pulse 98 98 97 Oximetry 01/31/18 01/31/18 01/31/18 15:40 15:50 16:00 Temperature 98.1 F Pulse Rate 91 H 97 H Respiratory 17 26 H Rate Blood Pressure 111/70 111/70 O2 Sat by Pulse 98 98 Oximetry - Labs CBC & Chem 7: 01/30/18 12:28 01/31/18 14:08 Labs: Abnormal lab results 01/30/18 01/30/18 01/30/18 Range/Units 17:36 18:43 19:15 Potassium (3.6-5.0) mmol/L Carbon Dioxide (22-30) mmol/L BUN (7-17) mg/dL Creatinine (0.7-1.2) mg/dL Glucose (65-100) mg/dL POC Glucose 196 H 134 H 125 H (70-105) Lactic Acid (0.7-2.0) mmol/L Calcium (8.4-10.2) mg/dL 01/30/18 01/30/18 01/31/18 Range/Units 20:08 21:03 01:02 Potassium (3.6-5.0) mmol/L Carbon Dioxide (22-30) mmol/L BUN (7-17) mg/dL Creatinine (0.7-1.2) mg/dL Glucose (65-100) mg/dL POC Glucose 109 H 117 H 127 H (70-105) Lactic Acid (0.7-2.0) mmol/L Calcium (8.4-10.2) mg/dL 01/31/18 01/31/18 01/31/18 Range/Units 02:06 02:58 03:20 Potassium (3.6-5.0) mmol/L Carbon Dioxide 19 L D (22-30) mmol/L BUN (7-17) mg/dL Creatinine (0.7-1.2) mg/dL Glucose 140 H (65-100) mg/dL POC Glucose 158 H 156 H (70-105) Lactic Acid (0.7-2.0) mmol/L Calcium 7.7 L (8.4-10.2) mg/dL 01/31/18 01/31/18 01/31/18 Range/Units 04:01 05:10 06:05 Potassium (3.6-5.0) mmol/L Carbon Dioxide (22-30) mmol/L BUN (7-17) mg/dL Creatinine (0.7-1.2) mg/dL Glucose (65-100) mg/dL POC Glucose 129 H 133 H 130 H (70-105) Lactic Acid (0.7-2.0) mmol/L Calcium (8.4-10.2) mg/dL 01/31/18 01/31/18 01/31/18 Range/Units 06:48 14:08 14:08 Potassium 3.5 L (3.6-5.0) mmol/L Carbon Dioxide 21 L (22-30) mmol/L BUN 5 L (7-17) mg/dL Creatinine 0.5 L (0.7-1.2) mg/dL Glucose 114 H (65-100) mg/dL POC Glucose 132 H (70-105) Lactic Acid 0.50 L (0.7-2.0) mmol/L Calcium 8.1 L (8.4-10.2) mg/dL 01/31/18 Range/Units 14:08 Potassium 3.4 L (3.6-5.0) mmol/L Carbon Dioxide 20 L (22-30) mmol/L BUN 5 L (7-17) mg/dL Creatinine 0.5 L (0.7-1.2) mg/dL Glucose 112 H (65-100) mg/dL POC Glucose (70-105) Lactic Acid (0.7-2.0) mmol/L Calcium 8.0 L (8.4-10.2) mg/dL
[2018-01-31] MEDS: MORPHINE IV PRN ×2 (18:21→21:21)
[2018-02-01] MEDS: MORPHINE IV PRN ×7 (00:20→21:34)
[2018-02-01] MEDS: VANCOMYCIN/0.45 NS 1 GM/250 ML 1 GM/250 ML BAG IV SCH ×2 (01:50→16:00)
[2018-02-01] MEDS: NACL 0.9% IV SCH ×3 (07:31→21:35)
[2018-02-01] MEDS: AZACTAM IV SCH ×3 (07:31→21:35)
[2018-02-01] MEDS: HumuLIN R SUB-Q SCH ×3 (09:02→17:25)
[2018-02-01] MEDS: LANTUS SUB-Q SCH (09:03)
[2018-02-01] MEDS: KEPPRA PO SCH (09:42)
[2018-02-01] MEDS: SODIUM CHLORIDE FLUSH SYRINGE 10 ML IV SCH ×2 (09:43→21:37)
[2018-02-01] MEDS: HABITROL TD SCH (09:43)
[2018-02-01 09:53] LABS: BUN/Creatinine Ratio 8; Blood Urea Nitrogen 3 mg/dL (7-17); Calcium 8.3 mg/dL (8.4-10.2); Hemolysis Index 156
--- NOTE | 2018-02-01 11:31 | Progress Note ---
Assessment and Plan / DKA, type 1 Placed on DKA Protocol: IVF resuscitation, insulin drip, monitor uop q shift, monitor anion gap, serial BMP, monitor serum potassium, replete as per protocol , AG significantly improved, stopped insulin drip, cont on subcutaneous insulin, consistent carbohydrate diet adjust insulin dose as needed /Metabolic Encephalopathy Likely from DKA, resolved cont neuro checks, seizure precautions, tight control of blood glucose / Metabolic acidosis from uncontrolled blood glucose IVF resuscitation, subcutaneous insulin, serial bmp, / Psychosis Psych consulted for evaluation, and medication recommendations, / Seizure disorder IV keppra therapy, will change to PO as patient tolerating diet better. /Hypertension, monitor BP closely /Abdominal pain with nausea - order CT abdomen with oral contrast - possible colitis? Abx started from ED, will cont for now / DVT prophylaxis SCD to BLE, while in bed. Brief history: 27 YO Female with DM, HTN, Seizure Disorder, Psychosis, Nicotine Dependence, IGA Deficiency, MVP, Medication Noncompliance who was released from the ICU as [facility] on Saturday S/P treatment for DKA. The patient has not taken her medication since discharge. Pt was noticed by family to be confused, and ill appearing. Pt was transported to [facility] by family. Pt seen and evaluated in ED and found to have DKA with coma, as well as severe metabolic acidosis. Radiological test: Chest x-ray: No acute infiltrates Hospitalist Physical exam: GENERAL: well-developed and well-nourished white female lying on bed appeared to be in no discomfort. HEENT: Normocephalic. Atraumatic. No conjunctival congestion or icterus. Patient has moist mucous membranes. NECK: Supple. Trachea midline. CHEST/LUNGS: Clear to auscultated bilaterally, breathing nonlabored. No wheezes crackles or rhonchi. HEART/CARDIOVASCULAR: Regular in rate and rhythm. S1 and S2 positive. ABDOMEN: Abdomen is soft, nontender. Patient has normal bowel sounds. SKIN: There is no rash. Warm and dry. NEURO: No focal motor deficit. Follows command. MUSCULOSKELETAL: No joint effusion or tenderness. EXTRIMITY: No edema, no cyanosis or clubbing. PSYCH: Cooperative. Subjective Date of service: 02/01/18 Interval history: Patient seen and examined. Medical records and medication list reviewed. No acute event overnight noted by the RN. Patient denies any chest pain or difficulty breathing. Discussed plan of care at bedside with patient and RN. c/o abdominal pain and nausea Objective - Constitutional Vitals: Vital Signs - 12hr 01/31/18 01/31/18 02/01/18 23:41 23:51 00:00 Temperature 98.8 F Pulse Rate 119 H 108 H 100 H Respiratory 18 18 23 Rate Blood Pressure 117/73 117/73 114/77 O2 Sat by Pulse 100 99 98 Oximetry 02/01/18 02/01/18 02/01/18 00:11 00:21 00:30 Temperature Pulse Rate 98 H 101 H 111 H Respiratory 22 23 18 Rate Blood Pressure 114/77 114/77 123/85 O2 Sat by Pulse 98 98 98 Oximetry 02/01/18 02/01/18 02/01/18 00:41 00:51 01:00 Temperature Pulse Rate 114 H 102 H 98 H Respiratory 21 22 20 Rate Blood Pressure 123/85 123/85 109/71 O2 Sat by Pulse 100 98 97 Oximetry 02/01/18 02/01/18 02/01/18 01:11 01:21 01:31 Temperature Pulse Rate 94 H 101 H 115 H Respiratory 18 21 19 Rate Blood Pressure 109/71 109/71 136/98 O2 Sat by Pulse 98 97 97 Oximetry 02/01/18 02/01/18 02/01/18 01:41 01:51 02:00 Temperature Pulse Rate 98 H 96 H 93 H Respiratory 8 L 21 18 Rate Blood Pressure 136/98 136/98 112/59 O2 Sat by Pulse 98 99 98 Oximetry 02/01/18 02/01/18 02/01/18 02:11 02:21 02:31 Temperature Pulse Rate 87 90 92 H Respiratory 20 24 21 Rate Blood Pressure 112/59 112/59 107/52 O2 Sat by Pulse 99 99 97 Oximetry 02/01/18 02/01/18 02/01/18 02:41 02:51 03:00 Temperature Pulse Rate 91 H 97 H 89 Respiratory 18 22 16 Rate Blood Pressure 107/52 107/52 115/73 O2 Sat by Pulse 98 98 98 Oximetry 02/01/18 02/01/18 02/01/18 03:11 03:21 03:30 Temperature Pulse Rate 96 H 84 Respiratory 20 22 19 Rate Blood Pressure 115/73 115/73 110/71 O2 Sat by Pulse 99 100 97 Oximetry 04/0702/01/18 02/01/18 03:41 03:51 04:00 Temperature 98.5 F Pulse Rate 86 85 90 Respiratory 20 19 14 Rate Blood Pressure 110/71 110/71 105/68 O2 Sat by Pulse 98 99 97 Oximetry 02/01/18 02/01/18 02/01/18 04:11 04:21 04:30 Temperature Pulse Rate 91 H 87 87 Respiratory 18 17 19 Rate Blood Pressure 105/68 105/68 105/63 O2 Sat by Pulse 98 98 97 Oximetry 02/01/18 02/01/18 02/01/18 04:41 04:51 05:01 Temperature Pulse Rate 87 83 82 Respiratory 12 18 17 Rate Blood Pressure 105/63 105/63 107/66 O2 Sat by Pulse 99 99 97 Oximetry 02/01/18 02/01/18 02/01/18 05:11 05:21 05:31 Temperature Pulse Rate 82 78 88 Respiratory 17 16 15 Rate Blood Pressure 107/66 107/66 116/81 O2 Sat by Pulse 99 99 98 Oximetry 02/01/18 02/01/18 02/01/18 05:41 05:51 06:00 Temperature Pulse Rate 92 H 87 96 H Respiratory 20 17 15 Rate Blood Pressure 116/81 116/81 118/80 O2 Sat by Pulse 100 99 98 Oximetry 02/01/18 02/01/18 02/01/18 06:11 06:21 06:30 Temperature Pulse Rate 90 85 83 Respiratory 15 15 15 Rate Blood Pressure 118/80 118/80 111/75 O2 Sat by Pulse 99 99 98 Oximetry 02/01/18 02/01/18 02/01/18 06:41 06:51 07:00 Temperature Pulse Rate 87 91 H 88 Respiratory 16 17 17 Rate Blood Pressure 111/75 111/75 105/49 O2 Sat by Pulse 99 99 98 Oximetry 02/01/18 02/01/18 02/01/18 07:11 07:21 07:30 Temperature Pulse Rate 98 H 93 H 88 Respiratory 16 17 16 Rate Blood Pressure 105/49 105/49 128/85 O2 Sat by Pulse 99 99 98 Oximetry 02/01/18 02/01/18 02/01/18 07:41 07:50 08:00 Temperature 98.4 F Pulse Rate 90 92 H 95 H Respiratory 18 19 17 Rate Blood Pressure 128/85 128/85 121/84 O2 Sat by Pulse 98 98 97 Oximetry 02/01/18 02/01/18 02/01/18 08:10 08:21 08:30 Temperature Pulse Rate 87 100 H 102 H Respiratory 16 17 17 Rate Blood Pressure 121/84 128/85 127/94 O2 Sat by Pulse 97 98 97 Oximetry 02/01/18 02/01/18 02/01/18 08:40 08:50 09:00 Temperature Pulse Rate 99 H 95 H 95 H Respiratory 15 16 17 Rate Blood Pressure 127/94 127/94 138/93 O2 Sat by Pulse 99 99 98 Oximetry 02/01/18 02/01/18 02/01/18 09:03 09:11 09:21 Temperature Pulse Rate 91 H 91 H Respiratory 17 16 19 Rate Blood Pressure 127/94 127/94 O2 Sat by Pulse 99 98 Oximetry 02/01/18 02/01/18 02/01/18 09:30 09:41 09:51 Temperature Pulse Rate 88 93 H 89 Respiratory 16 15 17 Rate Blood Pressure 135/90 135/90 135/90 O2 Sat by Pulse 98 100 99 Oximetry - Labs CBC & Chem 7: 01/30/18 12:28 02/01/18 08:17 Labs: Abnormal lab results 01/31/18 01/31/18 01/31/18 Range/Units 09:31 10:34 11:39 Potassium (3.6-5.0) mmol/L Carbon Dioxide (22-30) mmol/L BUN (7-17) mg/dL Creatinine (0.7-1.2) mg/dL Glucose (65-100) mg/dL POC Glucose 200 H 198 H 159 H (70-105) Lactic Acid (0.7-2.0) mmol/L Calcium (8.4-10.2) mg/dL 01/31/18 01/31/18 01/31/18 Range/Units 13:24 14:08 14:08 Potassium 3.5 L (3.6-5.0) mmol/L Carbon Dioxide 21 L (22-30) mmol/L BUN 5 L (7-17) mg/dL Creatinine 0.5 L (0.7-1.2) mg/dL Glucose 114 H (65-100) mg/dL POC Glucose 124 H (70-105) Lactic Acid 0.50 L (0.7-2.0) mmol/L Calcium 8.1 L (8.4-10.2) mg/dL 01/31/18 01/31/18 01/31/18 Range/Units 14:08 14:34 16:07 Potassium 3.4 L (3.6-5.0) mmol/L Carbon Dioxide 20 L (22-30) mmol/L BUN 5 L (7-17) mg/dL Creatinine 0.5 L (0.7-1.2) mg/dL Glucose 112 H (65-100) mg/dL POC Glucose 110 H 106 H (70-105) Lactic Acid (0.7-2.0) mmol/L Calcium 8.0 L (8.4-10.2) mg/dL 01/31/18 02/01/18 02/01/18 Range/Units 22:12 00:46 07:33 Potassium (3.6-5.0) mmol/L Carbon Dioxide (22-30) mmol/L BUN (7-17) mg/dL Creatinine (0.7-1.2) mg/dL Glucose (65-100) mg/dL POC Glucose 392 H 213 H 163 H (70-105) Lactic Acid (0.7-2.0) mmol/L Calcium (8.4-10.2) mg/dL 02/01/18 Range/Units 08:17 Potassium (3.6-5.0) mmol/L Carbon Dioxide 19 L (22-30) mmol/L BUN 3 L (7-17) mg/dL Creatinine 0.4 L (0.7-1.2) mg/dL Glucose 223 H (65-100) mg/dL POC Glucose (70-105) Lactic Acid (0.7-2.0) mmol/L Calcium 8.3 L (8.4-10.2) mg/dL
[2018-02-01] MEDS: ZOFRAN IV PRN ×2 (12:35→21:35)
--- NOTE | 2018-02-01 14:17 | Progress Note ---
Assessment and Plan Diabetic ketoacidosis. Acute encephalopathy, likely toxic metabolic. Severe metabolic acidosis. History of seizures. History of medication noncompliance. History of hypertension. History of psychosis. Tobacco use disorder. IgA deficiency. History of mitral valve prolapse. - continue glycemic control with long acting insulin therapy and SSI - prn anti-emetics - continue keppra for seizures - psychiatry evaluation (DKA related metabolic encephalopathy mostly resolved and likely baseline psych issues remain) - prn anti-hypertensives - GI & VTE prophylaxis - watch sugars closely re: non compliance and risk of rebound DKA ...re-evaluate in am & prn ...25' Subjective Date of service: 02/01/18 Principal diagnosis: DKA; Seizure Disorder; N&V; Abdominal Pain; HTN Interval history: Patient is seen today for: DKA; Seizure Disorder; N&V; Abdominal Pain Seen and examined at bedside; 24hour events reviewed; nursing and respiratory care staff consulted; no adverse overnight events reported to me; resting peacefully; denies acute chest pains or increased SOB; still with abdominal pain ; No N/V/F/C Objective Vital Signs - 12hr 02/01/18 02/01/18 02/01/18 02:21 02:31 02:41 Temperature Pulse Rate 90 92 H 91 H Respiratory 24 21 18 Rate Blood Pressure 112/59 107/52 107/52 O2 Sat by Pulse 99 97 98 Oximetry 02/01/18 02/01/18 02/01/18 02:51 03:00 03:11 Temperature Pulse Rate 97 H 89 96 H Respiratory 22 16 20 Rate Blood Pressure 107/52 115/73 115/73 O2 Sat by Pulse 98 98 99 Oximetry 02/01/18 02/01/18 02/01/18 03:21 03:30 03:41 Temperature Pulse Rate 84 86 Respiratory 22 19 20 Rate Blood Pressure 115/73 110/71 110/71 O2 Sat by Pulse 100 97 98 Oximetry 02/01/18 02/01/18 02/01/18 03:51 04:00 04:11 Temperature 98.5 F Pulse Rate 85 90 91 H Respiratory 19 14 18 Rate Blood Pressure 110/71 105/68 105/68 O2 Sat by Pulse 99 97 98 Oximetry 02/01/18 02/01/18 02/01/18 04:21 04:30 04:41 Temperature Pulse Rate 87 87 87 Respiratory 17 19 12 Rate Blood Pressure 105/68 105/63 105/63 O2 Sat by Pulse 98 97 99 Oximetry 02/01/18 02/01/18 02/01/18 04:51 05:01 05:11 Temperature Pulse Rate 83 82 82 Respiratory 18 17 17 Rate Blood Pressure 105/63 107/66 107/66 O2 Sat by Pulse 99 97 99 Oximetry 02/01/18 02/01/18 02/01/18 05:21 05:31 05:41 Temperature Pulse Rate 78 88 92 H Respiratory 16 15 20 Rate Blood Pressure 107/66 116/81 116/81 O2 Sat by Pulse 99 98 100 Oximetry 02/01/18 02/01/18 02/01/18 05:51 06:00 06:11 Temperature Pulse Rate 87 96 H 90 Respiratory 17 15 15 Rate Blood Pressure 116/81 118/80 118/80 O2 Sat by Pulse 99 98 99 Oximetry 02/01/18 02/01/18 02/01/18 06:21 06:30 06:41 Temperature Pulse Rate 85 83 87 Respiratory 15 15 16 Rate Blood Pressure 118/80 111/75 111/75 O2 Sat by Pulse 99 98 99 Oximetry 02/01/18 02/01/18 02/01/18 06:51 07:00 07:11 Temperature Pulse Rate 91 H 88 98 H Respiratory 17 17 16 Rate Blood Pressure 111/75 105/49 105/49 O2 Sat by Pulse 99 98 99 Oximetry 02/01/18 02/01/18 02/01/18 07:21 07:30 07:41 Temperature Pulse Rate 93 H 88 90 Respiratory 17 16 18 Rate Blood Pressure 105/49 128/85 128/85 O2 Sat by Pulse 99 98 98 Oximetry 02/01/18 02/01/18 02/01/18 07:50 08:00 08:10 Temperature 98.4 F Pulse Rate 92 H 95 H 87 Respiratory 19 17 16 Rate Blood Pressure 128/85 121/84 121/84 O2 Sat by Pulse 98 97 97 Oximetry 02/01/18 02/01/18 02/01/18 08:21 08:30 08:40 Temperature Pulse Rate 100 H 102 H 99 H Respiratory 17 17 15 Rate Blood Pressure 128/85 127/94 127/94 O2 Sat by Pulse 98 97 99 Oximetry 02/01/18 02/01/18 02/01/18 08:50 09:00 09:03 Temperature Pulse Rate 95 H 95 H Respiratory 16 17 17 Rate Blood Pressure 127/94 138/93 O2 Sat by Pulse 99 98 Oximetry 02/01/18 02/01/18 02/01/18 09:11 09:21 09:30 Temperature Pulse Rate 91 H 91 H 88 Respiratory 16 19 16 Rate Blood Pressure 127/94 127/94 135/90 O2 Sat by Pulse 99 98 98 Oximetry 02/01/18 02/01/18 02/01/18 09:41 09:51 10:00 Temperature Pulse Rate 93 H 89 Respiratory 15 17 Rate Blood Pressure 135/90 135/90 O2 Sat by Pulse 100 99 98 Oximetry 02/01/18 12:10 Temperature 98.5 F Pulse Rate 92 H Respiratory 18 Rate Blood Pressure 137/97 O2 Sat by Pulse 98 Oximetry Constitutional: no acute distress, alert Eyes: non-icteric ENT: oropharynx moist, other (mallampati 2) Neck: supple, no lymphadenopathy, no JVD, other (no thyromegaly) Effort: normal Ascultation: Bilateral: clear Percussion: Bilateral: not dull Cardiovascular: regular rate and rhythm, other (no rubs or murmurs) Gastrointestinal: hypoactive bowel sounds, soft, tender (mild epigastric), non- distended, other (no palpable HSM) Integumentary: rash Extremities: no cyanosis, no edema, pink and warm, pulses normal Neurologic: normal mental status, non-focal exam, pupils equal and round, CN II- XII normal Psychiatric: affect normal, depressed CBC and BMP: 02/02/18 17:00 02/02/18 14:50 ABG, PT/INR, D-dimer: PT/INR, D-dimer PT 13.5 Sec. (12.2-14.9) 01/30/18 12:49 INR 0.98 (0.87-1.13) 01/30/18 12:49 Abnormal lab findings: Abnormal Labs 01/30/18 01/30/18 01/30/18 12:00 12:28 12:28 Hct 43.2 H MCV 101 H MCHC 29 L RDW 16.4 H Plt Count 459 H APTT VBG pH 7.080 L* Sodium Potassium Chloride Carbon Dioxide BUN Creatinine Glucose POC Glucose 412 H Lactic Acid Calcium Phosphorus Total Creatine Kinase CK-MB (CK-2) Rel Index Lipase 01/30/18 01/30/18 01/30/18 12:28 12:28 12:49 Hct MCV MCHC RDW Plt Count APTT 22.4 L VBG pH Sodium 132 L Potassium 5.2 H Chloride 86.2 L Carbon Dioxide 3 L* BUN Creatinine Glucose 614 H* POC Glucose Lactic Acid Calcium Phosphorus 5.40 H Total Creatine Kinase 23 L CK-MB (CK-2) Rel Index 5.2 H Lipase 9 L 01/30/18 01/30/18 01/30/18 15:06 15:11 16:21 Hct MCV MCHC RDW Plt Count APTT VBG pH Sodium 136 L Potassium Chloride 95.3 L Carbon Dioxide 4 L* BUN Creatinine Glucose 491 H POC Glucose 385 H 299 H Lactic Acid Calcium 8.0 L D Phosphorus Total Creatine Kinase CK-MB (CK-2) Rel Index Lipase 01/30/18 01/30/18 01/30/18 17:36 18:43 19:15 Hct MCV MCHC RDW Plt Count APTT VBG pH Sodium Potassium Chloride Carbon Dioxide BUN Creatinine Glucose POC Glucose 196 H 134 H 125 H Lactic Acid Calcium Phosphorus Total Creatine Kinase CK-MB (CK-2) Rel Index Lipase 01/30/18 01/30/18 01/31/18 20:08 21:03 01:02 Hct MCV MCHC RDW Plt Count APTT VBG pH Sodium Potassium Chloride Carbon Dioxide BUN Creatinine Glucose POC Glucose 109 H 117 H 127 H Lactic Acid Calcium Phosphorus Total Creatine Kinase CK-MB (CK-2) Rel Index Lipase 01/31/18 01/31/18 01/31/18 02:06 02:58 03:20 Hct MCV MCHC RDW Plt Count APTT VBG pH Sodium Potassium Chloride Carbon Dioxide 19 L D BUN Creatinine Glucose 140 H POC Glucose 158 H 156 H Lactic Acid Calcium 7.7 L Phosphorus Total Creatine Kinase CK-MB (CK-2) Rel Index Lipase 01/31/18 01/31/18 01/31/18 04:01 05:10 06:05 Hct MCV MCHC RDW Plt Count APTT VBG pH Sodium Potassium Chloride Carbon Dioxide BUN Creatinine Glucose POC Glucose 129 H 133 H 130 H Lactic Acid Calcium Phosphorus Total Creatine Kinase CK-MB (CK-2) Rel Index Lipase 01/31/18 01/31/18 01/31/18 06:48 09:31 10:34 Hct MCV MCHC RDW Plt Count APTT VBG pH Sodium Potassium Chloride Carbon Dioxide BUN Creatinine Glucose POC Glucose 132 H 200 H 198 H Lactic Acid Calcium Phosphorus Total Creatine Kinase CK-MB (CK-2) Rel Index Lipase 01/31/18 01/31/18 01/31/18 11:39 13:24 14:08 Hct MCV MCHC RDW Plt Count APTT VBG pH Sodium Potassium 3.5 L Chloride Carbon Dioxide 21 L BUN 5 L Creatinine 0.5 L Glucose 114 H POC Glucose 159 H 124 H Lactic Acid Calcium 8.1 L Phosphorus Total Creatine Kinase CK-MB (CK-2) Rel Index Lipase 01/31/18 01/31/18 01/31/18 14:08 14:08 14:34 Hct MCV MCHC RDW Plt Count APTT VBG pH Sodium Potassium 3.4 L Chloride Carbon Dioxide 20 L BUN 5 L Creatinine 0.5 L Glucose 112 H POC Glucose 110 H Lactic Acid 0.50 L Calcium 8.0 L Phosphorus Total Creatine Kinase CK-MB (CK-2) Rel Index Lipase 01/31/18 01/31/18 02/01/18 16:07 22:12 00:46 Hct MCV MCHC RDW Plt Count APTT VBG pH Sodium Potassium Chloride Carbon Dioxide BUN Creatinine Glucose POC Glucose 106 H 392 H 213 H Lactic Acid Calcium Phosphorus Total Creatine Kinase CK-MB (CK-2) Rel Index Lipase 02/01/18 02/01/18 02/01/18 07:33 08:17 12:20 Hct MCV MCHC RDW Plt Count APTT VBG pH Sodium Potassium Chloride Carbon Dioxide 19 L BUN 3 L Creatinine 0.4 L Glucose 223 H POC Glucose 163 H 197 H Lactic Acid Calcium 8.3 L Phosphorus Total Creatine Kinase CK-MB (CK-2) Rel Index Lipase Allied health notes reviewed: nursing
--- NOTE | 2018-02-01 16:08 | Cat Scan Report ---
FINAL REPORT PROCEDURE: CT ABDOMEN PELVIS WO CON TECHNIQUE: Computerized axial tomography of the abdomen and pelvis was performed without intravenous contrast. This study is performed without intravascular contrast material and its sensitivity for abdominal and pelvic pathology, including neoplasms, inflammation, abscess, free fluid, thrombosis, arterial dissection and infarction, is reduced compared with a contrast enhanced study. HISTORY: abdominal pain COMPARISON: No prior studies are available for comparison. FINDINGS: Lower Lung cope: There is minimal dependent atelectasis. Lung bases otherwise are clear. Upper Abdomen: The gallbladder is surgically absent. The unenhanced images the liver show no focal abnormalities. The adrenal glands, the unenhanced images of the pancreas and spleen are unremarkable. Kidneys, Ureters and Urinary bladder: There is a nonobstructing 2 millimeter calculus in the upper 3rd of the left kidney. Kidneys, the ureters and urinary bladder otherwise are unremarkable. Retroperitoneum: Abdominal aorta appears normal. Minimal atherosclerotic calcified plaquing seen in the right common carotid artery which is otherwise widely patent. Nonspecific subcentimeter lymph nodes are seen in the retroperitoneum. No pathologically enlarged lymph nodes are identified. Bowel: There is mild wall thickening seen in the descending colon and also in the transverse colon. The appearance suggests a nonspecific colitis. Consider infectious colitis and inflammatory bowel disease. There is moderate amount of free fluid present in the cul-de-sac. There is also a small amount of fluid in the right pericolonic gutter. Normal-appearing appendix appears to be visualized on axial image 128 series 2. Reproductive organs: Uterus is unremarkable. Nonspecific cystic change seen in the right ovary measuring 17.7 millimeters x 9 millimeters. Other: No acute bony abnormalities are seen. IMPRESSION: Moderate amount of nonspecific free fluid is seen in the cul-de-sac and there also a small amount of fluid in the right pericolonic gutter. Mild wall thickening seen in the descending colon and transverse colon. I cannot exclude a mild nonspecific colitis. Consider infectious colitis and inflammatory bowel disease. Small nonspecific cystic change right ovary. If clinically indicated pelvic ultrasound could be obtained for further evaluation. Prior cholecystectomy..
--- NOTE | 2018-02-01 16:30 | Consultation ---
History of Present Illness - Reason for Consult Consult date: 02/01/18 Reason for consult: Initial Psychiatric Evaluation - Chief Complaint Chief complaint: Depression - History of Present Psychiatric Illness Katherine is a 27 year old female who presents to the emergency room with DM, HTN, Seizure Disorder, Psychosis, Nicotine Dependence, IGA Deficiency, MVP, and medication noncompliance. She has a PPHx of MDD. Today, she states " I'm here for DKA." She verbalizes in the past she has been treated for deppression. However, she has been noncompliant with medication since 2008. Last medication taken was Zoloft, which was ineffective. She reports decrease energy, decrease appetite, good sleep, increase worry/anxious mood, and anhedonia. She denies SI/HI, A/VH, and delusions. Allergies: See list. Past Psychiatric History: Previous Diagnosis - Major Depressive Disorder (2004 ) ; 0- inpatient hospitalizations ; 0- previous suicide attempts; No outpatient psychiatrist. Past Psychiatric Medication Trials: Zoloft- ineffective History of Trauma/Abuse: Patient denies physical, mental, and sexual abuse. Social History: 12th grade; Unemployed- no source of income; 1 son (6 years old); Lives with mother and father in [place], [place]; Single; "Okay" support system. Family History: Patient denies. Drug/ Alcohol Abuse: Patient denies. Medications and Allergies Allergies Allergy/AdvReac Type Severity Reaction Status Date / Time clarithromycin [From Biaxin] Allergy Hives Verified 09/06/15 18:49 erythromycin base Allergy Hives Verified 09/06/15 18:49 ketorolac [From Toradol] Allergy Bleeding Verified 01/30/18 12:00 nalbuphine HCl [From Nubain] Allergy Hives Verified 01/19/16 22:28 Penicillins Allergy Hives Verified 09/06/15 18:49 Sulfa (Sulfonamide Allergy Hives Verified 09/06/15 18:49 Antibiotics) tramadol Allergy Angioedema Verified 01/30/18 12:00 Home Medications Medication Instructions Recorded Confirmed Last Taken Type Cyclobenzaprine [Flexeril 10 MG 10 mg PO TID PRN #15 tablet 04/04/16 Unknown Rx TAB] HYDROcodone/APAP 5-325 [[place] 1 each PO Q6HR PRN #15 tablet 04/04/16 Unknown Rx 5-325 mg TAB] Insulin Aspart [Novolog] 5 unit SQ AC #100 ml 04/04/16 Unknown Rx Insulin Glulisine [Apidra] 1 dose SUB-Q ACHS #100 units 04/04/16 Unknown Rx Levofloxacin [Levaquin] 750 mg PO QDAY #5 tablet 04/04/16 Unknown Rx Nicotine [Habitrol] 14 mg TD QDAY #14 patch 04/04/16 Unknown Rx levETIRAcetam [Keppra TAB] 500 mg PO BID #60 tablet 04/04/16 Unknown Rx Active Meds: Active Medications Acetaminophen/Hydrocodone Bitart ([place] 5/325) 1 each PO Q6HR PRN PRN Reason: Pain Last Admin: 01/31/18 13:27 Dose: 1 each Cyclobenzaprine HCl (Flexeril) 10 mg PO TID PRN PRN Reason: back pain Last Admin: 01/30/18 23:11 Dose: 10 mg Dextrose (D50w (25gm) Syringe) 0 ml IV ONCE PRN PRN Reason: Hypoglycemia Enoxaparin Sodium (Lovenox) 40 mg SUB-Q QDAY@2200 [facility] Famotidine (Pepcid) 20 mg PO QDAY [facility] Insulin Human Regular 100 (units/ Sodium Chloride) 100 mls @ 1 mls/hr IV TITR [facility]; Protocol Last Titration: 01/31/18 16:03 Dose: 1 units/hr, 1 mls/hr Vancomycin HCl (Vancomycin/0.45 Ns 1 Gm/250 Ml) 1 gm in 250 mls @ 167.007 mls/ hr IV Q12H [facility] Last Admin: 02/01/18 01:50 Dose: 167.007 mls/hr Sodium Chloride (Nacl 0.9% 1000 Ml) 1,000 mls @ 150 mls/hr IV DIRECT [facility] Last Admin: 01/30/18 15:00 Dose: 150 mls/hr Aztreonam 500 mg/ Sodium (Chloride) 20 mls @ 2 mls/min IV Q8HR [facility] Last Admin: 02/01/18 15:38 Dose: 2 mls/min Potassium Chloride/Sodium Chloride (Ns 0.45/Kcl 20meq) 20 meq in 1,000 mls @ 75 mls/hr IV DIRECT [facility] Last Admin: 02/01/18 15:46 Dose: 75 mls/hr Insulin Glargine (Lantus) 10 units SUB-Q QAMDIAB [facility] Last Admin: 02/01/18 09:03 Dose: 10 units Insulin Human Regular (Humulin R) 0 units SUB-Q ACHS [facility]; Protocol Last Admin: 02/01/18 12:44 Dose: Not Given Levetiracetam (Keppra) 500 mg PO BID [facility] Last Admin: 02/01/18 09:42 Dose: 500 mg Metoclopramide HCl (Reglan) 10 mg PO Q6H PRN PRN Reason: Nausea And Vomiting Last Admin: 01/31/18 18:21 Dose: 10 mg Morphine Sulfate (Morphine) 2 mg IV Q3H PRN PRN Reason: Pain, Moderate (4-6) Last Admin: 02/01/18 15:35 Dose: 2 mg Nicotine (Habitrol) 14 mg TD QDAY [facility] Last Admin: 02/01/18 09:43 Dose: 14 mg Ondansetron HCl (Zofran) 4 mg IV Q8H PRN PRN Reason: Nausea And Vomiting Last Admin: 02/01/18 12:35 Dose: 4 mg Sodium Chloride (Sodium Chloride Flush Syringe 10 Ml) 10 ml IV BID [facility] Last Admin: 02/01/18 09:43 Dose: Not Given Sodium Chloride (Sodium Chloride Flush Syringe 10 Ml) 10 ml IV PRN PRN PRN Reason: LINE FLUSH Vancomycin HCl (Vancomycin Pharmacy To Dose) 1 each IV PKCONSULT [facility]; Protocol Mental Status Exam - Vital signs Last Vital Signs Temp 98.5 F 02/01/18 12:10 Pulse 92 H 02/01/18 12:10 Resp 18 02/01/18 12:10 BP 137/97 02/01/18 12:10 Pulse Ox 98 02/01/18 12:10 - Exam Narrative exam: Mental Status Exam General Appearance: Causally Dressed-hospital gown Eye Contact: Intermittent Orientation: Alert and oriented x 4 ( person, place, time, and situation) Attitude/Behavior: Cooperative Sensorium: Clear Psychomotor & Musculoskeletal Activity: WNL Mood: "Not good." ; Depressed, anxious Affect: Appropriate Speech/Language: Normal rate and tone Thought Processes: Organized Thought Content: Organized Perception: Patient denies Concentration/Attention: Intact Suicidal Ideation/Plan: Patient denies Homicidal Ideation/Plan: Patient denies Results Result Diagrams: 01/30/18 12:28 02/01/18 08:17 Abnormal lab results 01/31/18 01/31/18 01/31/18 Range/Units 09:31 10:34 11:39 Carbon Dioxide (22-30) mmol/L BUN (7-17) mg/dL Creatinine (0.7-1.2) mg/dL Glucose (65-100) mg/dL POC Glucose 200 H 198 H 159 H (70-105) Calcium (8.4-10.2) mg/dL 01/31/18 01/31/18 01/31/18 Range/Units 13:24 14:34 16:07 Carbon Dioxide (22-30) mmol/L BUN (7-17) mg/dL Creatinine (0.7-1.2) mg/dL Glucose (65-100) mg/dL POC Glucose 124 H 110 H 106 H (70-105) Calcium (8.4-10.2) mg/dL 01/31/18 02/01/18 02/01/18 Range/Units 22:12 00:46 07:33 Carbon Dioxide (22-30) mmol/L BUN (7-17) mg/dL Creatinine (0.7-1.2) mg/dL Glucose (65-100) mg/dL POC Glucose 392 H 213 H 163 H (70-105) Calcium (8.4-10.2) mg/dL 02/01/18 02/01/18 Range/Units 08:17 12:20 Carbon Dioxide 19 L (22-30) mmol/L BUN 3 L (7-17) mg/dL Creatinine 0.4 L (0.7-1.2) mg/dL Glucose 223 H (65-100) mg/dL POC Glucose 197 H (70-105) Calcium 8.3 L (8.4-10.2) mg/dL All other labs normal. Assessment and Plan Assessment and plan: Impression: Patient is a 27 year old female who presents to the emergency room with DKA and multiple co-morbidities. She has a PPHx of MDD. Patient has been noncompliant with medication since 2008. Today, she presents depressed and anxious. She endorses decrease energy, decrease appetite, anhedonia, and anxious mood. She denies SI/HI, A/VH, and delusions. DDx: MDD, recurrent, severe without psychosis Plan: 1. Will continue to monitor and reassess on 02/02/18. 2. Will start Celexa 10mg po QAM for depression and anxiety. 3. Educated patient on medications' indications, frequency, and side effects. She verbalizes understanding.
[2018-02-01] MEDS: LOVENOX SUB-Q SCH (21:36)
[2018-02-01] MEDS: SODIUM CHLORIDE FLUSH SYRINGE 10 ML IV PRN (21:47)
[2018-02-02] MEDS: NORCO 5/325 PO PRN (00:19)
[2018-02-02] MEDS: HumuLIN R SUB-Q SCH ×5 (00:23→21:55)
[2018-02-02] MEDS: KEPPRA PO SCH ×3 (00:25→21:56)
[2018-02-02] MEDS: MORPHINE IV PRN ×7 (01:37→21:56)
[2018-02-02] MEDS: VANCOMYCIN/0.45 NS 1 GM/250 ML 1 GM/250 ML BAG IV SCH (01:38)
[2018-02-02] MEDS: SODIUM CHLORIDE FLUSH SYRINGE 10 ML IV PRN ×2 (01:38→05:20)
[2018-02-02] MEDS: NACL 0.9% IV SCH (05:20)
[2018-02-02] MEDS: AZACTAM IV SCH (05:20)
[2018-02-02] MEDS ORDERED: LANTUS SUB-Q SCH (08:27)
[2018-02-02] MEDS: ZOFRAN IV PRN ×3 (08:50→21:59)
[2018-02-02] MEDS: NACL 0.9% 1000 ML 1,000 ML IV SCH (08:51)
[2018-02-02] MEDS: LANTUS SUB-Q SCH (09:02)
[2018-02-02] MEDS: PEPCID PO SCH (09:17)
[2018-02-02] MEDS: HABITROL TD SCH (09:17)
[2018-02-02] MEDS: celeXA PO SCH (09:17)
[2018-02-02] MEDS: LEVAQUIN PO SCH (10:25)
--- NOTE | 2018-02-02 11:02 | Consultation ---
PULMONARY CRITICAL CARE CONSULTATION CONSULTING PHYSICIAN: Dr. Rasmussen. REASON FOR CONSULTATION: Need for ICU admission, diabetic ketoacidosis, on IV insulin therapy. CHIEF COMPLAINT AND HISTORY OF PRESENT ILLNESS: The patient is a 27-year-old female with past medical history significant for poorly controlled diagnosis as well as seizure disorder, apparently just discharged recently from an outside hospital, brought into the Emergency Room after being released from [facility]. She had not taken her medications since discharge. She was found confused and ill appearing. She was brought to [facility]. In the ED, she was diagnosed with diabetic ketoacidosis with coma as well as severe metabolic acidosis. She did not require mechanical ventilation or intubation. She was admitted to the Intensive Care Unit for IV insulin therapy. When I stopped by to see her, she was feeling better, a little non-conservative at times. Denied acute chest pain. She complained of some abdominal pain. Denied any current nausea at the time I saw her. Denied fevers or chills. She has a tobacco smoking history, but is unwilling or unable to quantify it for me. This really is as much of the history of presentation as I have. She remains on the IV insulin therapy at 3 units per hour at the time I saw her. PAST MEDICAL HISTORY: Again, significant for diabetes, hypertension, seizure disorder, psychosis, nicotine dependence, IgA deficiency, mitral valve prolapse. PAST SURGICAL HISTORY: She has had a cholecystectomy and a tonsillectomy. MEDICATIONS: Medications she was on at the time I stopped by to see her were reviewed. Pertinent medications included the following: She was on aztreonam 500 mg IV q.8 hours, p.r.n. Flexeril. She was on IV insulin at 3 units per hour, Keppra 500 mg p.o. b.i.d., Reglan 10 mg p.o. q.6 h ours p.r.n. nausea and vomiting, nicotine 14 mg per day patch, Zofran 4 mg IV q.8 hours. p.r.n. nausea and vomiting, vancomycin 1 gram IV q.12 hours. ALLERGIES: CLARITHROMYCIN, KETOROLAC, NALBUPHINE. Nature of this allergy is unknown. DIET: Well-built female. Denies acute weight loss or gain preceding few weeks to months. FAMILY AND SOCIAL HISTORY: Lives in the community. She has a tobacco smoking history, appears to be about greater than 5 packed years, continues to smoke. Denies alcohol or illicit drug use or abuse. Family history is otherwise significant for hypertension. REVIEW OF SYSTEMS: Difficult to obtain secondary to her medical and mental condition; however, denies acute chest pains, denies palpitations. No gross hematochezia or melena since she has been here. No gross hematuria. She denies dysuria. No hematemesis, no hemoptysis. She has had nausea and vomiting, but none currently. She has mild abdominal pain at the time I spoke to her. Complete 13-system review of systems was obtained. Pertinent positives and/or negatives as in body of the history above, otherwise they are noncontributory. PHYSICAL EXAMINATION: VITAL SIGNS: At presentation in the Emergency Room, she was afebrile, temperature 98.3 degrees Fahrenheit, pulse was 142, respiratory rate was 24, blood pressure 123/68, oxygen sats were 100%. Inspired oxygen concentration at that time was not recorded. At the time I stopped by to see her, she was 97% on room air. GENERAL: Well-built female, normocephalic, atraumatic, talking to me in complete sentences, but somnolent at times, but in no acute respiratory distress. HEAD, EYES, EARS, NOSE, AND THROAT: She is anicteric. No conjunctival erythema. Oropharynx is moist. No thyromegaly. No jugular venous distention. No palpable lymphadenopathy in the supraclavicular or submandibular lymph node chains. LUNGS: Auscultation of both lung cope unremarkable. Lungs are clear bilaterally. CARDIOVASCULAR: Heart sounds 1 and 2 were heard. They are regular in rate and rhythm at the time of my evaluation. No rubs, no murmurs. ABDOMEN: Soft, flat, full. Bowel sounds are positive. Mild epigastric tenderness. No palpable hepatosplenomegaly. EXTREMITIES: Without overt digital clubbing or cyanosis. No pedal edema. Mild excoriations to the lower shins. Dorsalis pedis pulses are palpable bilaterally. Again, no clubbing, no cyanosis, no pedal edema. NEUROLOGIC: Pupils are equal, round, about 4 mm, reactive to light. Extraocular muscle movements are intact. She moves all 4 extremities spontaneously. The skin is of normal turgor. She has excoriations on the shins, otherwise, no cellulitis, no rash. LABORATORY DATA: From my review are as follows: Admission white cell count 10,100 with a hemoglobin of 12.4, hematocrit of 43.2, platelet count of 459. INR 0.98. Venous blood gas at presentation was 7.08. Serum sodium 136, potassium 4.7, chloride 95, bicarbonate of 4.0, BUN 14, creatinine 0.9 and a glucose of 491. Liver function tests were essentially within normal limits. CPK was 23. Urinalysis negative for nitrites and leukocyte esterase. She was spilling glucose, but bland otherwise. Opiate screen was positive. Amphetamine screen was positive. Otherwise, urine drug screen was negative. At the time I saw her, anion gap was down from 41 to 19. Blood cultures, no growth to date. Radiographic studies were reviewed. A chest x-ray was done at admission. I have reviewed the images on the chest x-ray myself, normal looking chest x-ray. She has a left IJ central line with the tip in the distal SVC/right atrium. No gross pneumothorax, no gross bony fracture. ASSESSMENT: 1. Diabetic ketoacidosis. 2. Acute encephalopathy, likely toxic metabolic. 3. Severe metabolic acidosis. 4. History of seizures. 5. History of medication noncompliance. 6. History of hypertension. 7. History of psychosis. 8. Tobacco use disorder. 9. IgA deficiency. 10. History of mitral valve prolapse. PLAN: Continue IV insulin therapy. Repeat BMP and electrolytes per protocol. She should be ready for introduction of long-acting insulin transitioned to sliding scale insulin, begin enteral/oral nutrition. Drug abuse and tobacco abuse abstinence has been counseled. I have strongly stressed to really give her medication compliance a better chance and explained the risk she poses. I will order a stat CRP level as well as a lactic acid level and use it to aid de-escalation of antibiotic therapy. The plan will be to discontinue antibiotics after about 72 hours of negative blood cultures, especially if the CRP and lactic levels are unremarkable. Again, she will be placed on GI and DVT prophylaxis. Flu and pneumonia vaccination will be addressed per protocol. She will continue her Keppra for her seizure disorder. Thank you very much for the consult. We will follow along and make further recommendations as picture progresses/becomes clearer and hopefully she is transitioned, improved, and can be transferred out of the ICU later today. JOB# [id number] YESY/ANTONI ORTEGA
[2018-02-02] MEDS: SODIUM CHLORIDE FLUSH SYRINGE 10 ML IV SCH ×2 (12:58→21:57)
--- NOTE | 2018-02-02 14:42 | Progress Note ---
Assessment and Plan / DKA, type 1 Placed on DKA Protocol: IVF resuscitation, insulin drip, monitor uop q shift, monitor anion gap, serial BMP, monitor serum potassium, replete as per protocol , AG significantly improved, stopped insulin drip, cont on subcutaneous insulin, consistent carbohydrate diet adjust insulin dose as needed- increase to 15 unit this am /Metabolic Encephalopathy Likely from DKA, resolved cont neuro checks, seizure precautions, tight control of blood glucose / Metabolic acidosis from uncontrolled blood glucose resolved with IVF resuscitation, insulin, / Anxiety and depression Psych consulted for evaluation, started on Celexa 10mg po QAM for depression and anxiety / Seizure disorder IV keppra therapy, will change to PO as patient tolerating diet better. /Hypertension, monitor BP closely /Abdominal pain with nausea - CT abdomen with oral contrast showed possible colitis - cont Abx / DVT prophylaxis SCD to BLE, while in bed. Brief history: 27 YO Female with DM, HTN, Seizure Disorder, Psychosis, Nicotine Dependence, IGA Deficiency, MVP, Medication Noncompliance who was released from the ICU as [facility] on Saturday S/P treatment for DKA. The patient has not taken her medication since discharge. Pt was noticed by family to be confused, and ill appearing. Pt was transported to [facility] by family. Pt seen and evaluated in ED and found to have DKA with coma, as well as severe metabolic acidosis. Radiological test: Chest x-ray: No acute infiltrates Hospitalist Physical exam: GENERAL: well-developed and well-nourished white female lying on bed appeared to be in no discomfort. HEENT: Normocephalic. Atraumatic. No conjunctival congestion or icterus. Patient has moist mucous membranes. NECK: Supple. Trachea midline. CHEST/LUNGS: Clear to auscultated bilaterally, breathing nonlabored. No wheezes crackles or rhonchi. HEART/CARDIOVASCULAR: Regular in rate and rhythm. S1 and S2 positive. ABDOMEN: Abdomen is soft, nontender. Patient has normal bowel sounds. SKIN: There is no rash. Warm and dry. NEURO: No focal motor deficit. Follows command. MUSCULOSKELETAL: No joint effusion or tenderness. EXTRIMITY: No edema, no cyanosis or clubbing. PSYCH: Cooperative. Subjective Date of service: 02/02/18 Interval history: Patient seen and examined. Medical records and medication list reviewed. No acute event overnight noted by the RN. Patient denies any chest pain or difficulty breathing. Discussed plan of care at bedside with patient and RN. states she still has nausea but abdominal pain improved Objective - Constitutional Vitals: Vital Signs - 12hr 02/02/18 02/02/18 02/02/18 03:46 07:52 08:51 Temperature 98.1 F 98.3 F Pulse Rate 103 H 96 H Respiratory 18 18 Rate Blood Pressure 114/70 145/105 O2 Sat by Pulse 98 98 98 Oximetry 02/02/18 11:46 Temperature 98.6 F Pulse Rate 98 H Respiratory 18 Rate Blood Pressure 158/113 O2 Sat by Pulse 98 Oximetry - Labs CBC & Chem 7: 02/02/18 17:00 02/02/18 14:50 Labs: Abnormal lab results 02/01/18 02/01/18 02/02/18 Range/Units 17:27 22:00 06:27 POC Glucose 327 H 265 H 211 H (70-105) 02/02/18 02/02/18 Range/Units 08:59 11:52 POC Glucose 336 H 195 H (70-105)
[2018-02-02 15:43] LABS: Blood Urea Nitrogen TNR mg/dL (7-17)
[2018-02-02 15:44] LABS: BUN/Creatinine Ratio TNR; Calcium TNR mg/dL (8.4-10.2); Hemolysis Index TNR
[2018-02-02] MEDS ORDERED: NACL 0.9% 1000 ML 1,000 ML IV SCH (16:00)
[2018-02-02 17:33] LABS: Hematocrit 39.1 % (30.3-42.9); Hemoglobin 12.3 gm/dl (10.1-14.3); Mean Corpuscular HGB Conc 31 % (30-34); Mean Corpuscular Hemoglobin 29 pg (28-32); Mean Corpuscular Volume 92 fl (79-97); Platelet Count 266 K/mm3 (140-440); Red Blood Count 4.25 M/mm3 (3.65-5.03); Red Cell Distribution Width 14.2 % (13.2-15.2)
--- NOTE | 2018-02-02 17:59 | Progress Note ---
Assessment and Plan Diabetic ketoacidosis. Acute encephalopathy, likely toxic metabolic. Severe metabolic acidosis. History of seizures. History of medication noncompliance. History of hypertension. History of psychosis. Tobacco use disorder. IgA deficiency. History of mitral valve prolapse. - continue glycemic control with long acting insulin therapy and SSI (lantus at 15 units) - prn anti-emetics - continue keppra for seizures - psychiatry evaluation (DKA related metabolic encephalopathy mostly resolved and likely baseline psych issues remain) - prn anti-hypertensives - GI & VTE prophylaxis - watch sugars closely re: non compliance and risk of rebound DKA (sugars in 200 's now and will increase lantus dose if persist's) ...re-evaluate in am & prn ...25' Subjective Date of service: 02/02/18 Principal diagnosis: DKA; Seizure Disorder; N&V; Abdominal Pain; HTN Interval history: Patient is seen today for: DKA; Seizure Disorder; N&V; Abdominal Pain Seen and examined at bedside; 24hour events reviewed; nursing and respiratory care staff consulted; no adverse overnight events reported to me; resting peacefully; denies acute chest pains or increased SOB; seen by psych and started on celexa; no new issues otherwise Objective Vital Signs - 12hr 02/02/18 02/02/18 02/02/18 07:52 08:51 11:46 Temperature 98.3 F 98.6 F Pulse Rate 96 H 98 H Respiratory 18 18 Rate Blood Pressure 145/105 158/113 O2 Sat by Pulse 98 98 98 Oximetry 02/02/18 15:45 Temperature 98.6 F Pulse Rate 94 H Respiratory 19 Rate Blood Pressure 156/101 O2 Sat by Pulse 98 Oximetry Constitutional: no acute distress, alert Eyes: non-icteric ENT: oropharynx moist, other (mallampati 2) Neck: supple, no lymphadenopathy, no JVD, other (no thyromegaly) Effort: normal Ascultation: Bilateral: clear Percussion: Bilateral: not dull Cardiovascular: regular rate and rhythm, other (no rubs or murmurs) Gastrointestinal: hypoactive bowel sounds, soft, tender (mild epigastric), non- distended, other (no palpable HSM) Integumentary: rash Extremities: no cyanosis, no edema, pink and warm, pulses normal Neurologic: normal mental status, non-focal exam, pupils equal and round, CN II- XII normal Psychiatric: affect normal, depressed CBC and BMP: 02/02/18 17:00 02/02/18 14:50 ABG, PT/INR, D-dimer: PT/INR, D-dimer PT 13.5 Sec. (12.2-14.9) 01/30/18 12:49 INR 0.98 (0.87-1.13) 01/30/18 12:49 Abnormal lab findings: Abnormal Labs 01/30/18 01/30/18 01/30/18 12:00 12:28 12:28 Hct 43.2 H MCV 101 H MCHC 29 L RDW 16.4 H Plt Count 459 H APTT VBG pH 7.080 L* Sodium Potassium Chloride Carbon Dioxide BUN Creatinine Glucose POC Glucose 412 H Lactic Acid Calcium Phosphorus Total Creatine Kinase CK-MB (CK-2) Rel Index Lipase 01/30/18 01/30/18 01/30/18 12:28 12:28 12:49 Hct MCV MCHC RDW Plt Count APTT 22.4 L VBG pH Sodium 132 L Potassium 5.2 H Chloride 86.2 L Carbon Dioxide 3 L* BUN Creatinine Glucose 614 H* POC Glucose Lactic Acid Calcium Phosphorus 5.40 H Total Creatine Kinase 23 L CK-MB (CK-2) Rel Index 5.2 H Lipase 9 L 01/30/18 01/30/18 01/30/18 15:06 15:11 16:21 Hct MCV MCHC RDW Plt Count APTT VBG pH Sodium 136 L Potassium Chloride 95.3 L Carbon Dioxide 4 L* BUN Creatinine Glucose 491 H POC Glucose 385 H 299 H Lactic Acid Calcium 8.0 L D Phosphorus Total Creatine Kinase CK-MB (CK-2) Rel Index Lipase 01/30/18 01/30/18 01/30/18 17:36 18:43 19:15 Hct MCV MCHC RDW Plt Count APTT VBG pH Sodium Potassium Chloride Carbon Dioxide BUN Creatinine Glucose POC Glucose 196 H 134 H 125 H Lactic Acid Calcium Phosphorus Total Creatine Kinase CK-MB (CK-2) Rel Index Lipase 01/30/18 01/30/18 01/31/18 20:08 21:03 01:02 Hct MCV MCHC RDW Plt Count APTT VBG pH Sodium Potassium Chloride Carbon Dioxide BUN Creatinine Glucose POC Glucose 109 H 117 H 127 H Lactic Acid Calcium Phosphorus Total Creatine Kinase CK-MB (CK-2) Rel Index Lipase 01/31/18 01/31/18 01/31/18 02:06 02:58 03:20 Hct MCV MCHC RDW Plt Count APTT VBG pH Sodium Potassium Chloride Carbon Dioxide 19 L D BUN Creatinine Glucose 140 H POC Glucose 158 H 156 H Lactic Acid Calcium 7.7 L Phosphorus Total Creatine Kinase CK-MB (CK-2) Rel Index Lipase 01/31/18 01/31/18 01/31/18 04:01 05:10 06:05 Hct MCV MCHC RDW Plt Count APTT VBG pH Sodium Potassium Chloride Carbon Dioxide BUN Creatinine Glucose POC Glucose 129 H 133 H 130 H Lactic Acid Calcium Phosphorus Total Creatine Kinase CK-MB (CK-2) Rel Index Lipase 01/31/18 01/31/18 01/31/18 06:48 09:31 10:34 Hct MCV MCHC RDW Plt Count APTT VBG pH Sodium Potassium Chloride Carbon Dioxide BUN Creatinine Glucose POC Glucose 132 H 200 H 198 H Lactic Acid Calcium Phosphorus Total Creatine Kinase CK-MB (CK-2) Rel Index Lipase 01/31/18 01/31/18 01/31/18 11:39 13:24 14:08 Hct MCV MCHC RDW Plt Count APTT VBG pH Sodium Potassium 3.5 L Chloride Carbon Dioxide 21 L BUN 5 L Creatinine 0.5 L Glucose 114 H POC Glucose 159 H 124 H Lactic Acid Calcium 8.1 L Phosphorus Total Creatine Kinase CK-MB (CK-2) Rel Index Lipase 01/31/18 01/31/18 01/31/18 14:08 14:08 14:34 Hct MCV MCHC RDW Plt Count APTT VBG pH Sodium Potassium 3.4 L Chloride Carbon Dioxide 20 L BUN 5 L Creatinine 0.5 L Glucose 112 H POC Glucose 110 H Lactic Acid 0.50 L Calcium 8.0 L Phosphorus Total Creatine Kinase CK-MB (CK-2) Rel Index Lipase 01/31/18 01/31/18 02/01/18 16:07 22:12 00:46 Hct MCV MCHC RDW Plt Count APTT VBG pH Sodium Potassium Chloride Carbon Dioxide BUN Creatinine Glucose POC Glucose 106 H 392 H 213 H Lactic Acid Calcium Phosphorus Total Creatine Kinase CK-MB (CK-2) Rel Index Lipase 02/01/18 02/01/18 02/01/18 07:33 08:17 12:20 Hct MCV MCHC RDW Plt Count APTT VBG pH Sodium Potassium Chloride Carbon Dioxide 19 L BUN 3 L Creatinine 0.4 L Glucose 223 H POC Glucose 163 H 197 H Lactic Acid Calcium 8.3 L Phosphorus Total Creatine Kinase CK-MB (CK-2) Rel Index Lipase 02/01/18 02/01/18 02/02/18 17:27 22:00 06:27 Hct MCV MCHC RDW Plt Count APTT VBG pH Sodium Potassium Chloride Carbon Dioxide BUN Creatinine Glucose POC Glucose 327 H 265 H 211 H Lactic Acid Calcium Phosphorus Total Creatine Kinase CK-MB (CK-2) Rel Index Lipase 02/02/18 02/02/18 02/02/18 08:59 11:52 16:54 Hct MCV MCHC RDW Plt Count APTT VBG pH Sodium Potassium Chloride Carbon Dioxide BUN Creatinine Glucose POC Glucose 336 H 195 H 328 H Lactic Acid Calcium Phosphorus Total Creatine Kinase CK-MB (CK-2) Rel Index Lipase Allied health notes reviewed: nursing
[2018-02-02] MEDS: LOVENOX SUB-Q SCH (21:56)
[2018-02-03] MEDS: MORPHINE IV PRN ×2 (05:13→08:20)
[2018-02-03] MEDS: HumuLIN R SUB-Q SCH ×2 (08:04→11:30)
[2018-02-03] MEDS: ZOFRAN IV PRN (08:21)
[2018-02-03 08:23] VITALS: BP 140/91
[2018-02-03] MEDS ORDERED: ZESTRIL PO SCH (10:00)
--- NOTE | 2018-02-03 10:01 | Progress Note ---
Subjective - Reason for Consult Consult date: 02/03/18 Reason for consult: Psychiatry Follow-up - Chief Complaint Chief complaint: 'I feel better" 27 year old female who presents to the emergency room with DM, HTN, Seizure Disorder, Psychosis, Nicotine Dependence, IGA Deficiency, MVP, and medication noncompliance. She has a PPHx of MDD. Today the patient is calm and cooperative during the assessment. She stated that she feel much better today "physically and mentally." She stated that she does not have a psychiatrist, but will use outpatient psy services at [facility]. The patient is positive for opiates. She stated that she has a prescription for Percocets. She denies SI/HI's, AVH's, and any side effects of her medication. Mental Status Exam - Vital signs Last Vital Signs Temp 97.6 F 02/03/18 07:48 Pulse 88 02/03/18 07:48 Resp 16 02/03/18 07:48 BP 140/91 02/03/18 07:48 Pulse Ox 96 02/03/18 07:48 - Exam Narrative exam: MSE: Appearance: calm, cooperative Behavior: regular eye contact Speech: regular rate and tone Mood: "okay" Affect: congruent to mood Thought Process: linear Thought Content: denies SI/HI's and AVH's Motor Activity: sitting up in bed Cognition: A/O x3 Insight: appropriate Judgment: appropriate Assessment and Plan Impression: MDD. Substance Use DO (amphetamines). Today the patient is calm and cooperative during the assessment. The patient positive for opiates. DDx: R/O Bipolar DO Recommendation/Plan: Continue Celexa 10 mg PO daily for depression. Discussed possible suicidality/medication induced sharmaine with patient reference Celexa. Discussed the importance to abstain from recreational drug use. The patient can follow up with [facility] for outpatient psy services. Psychiatry sign off.
[2018-02-03] MEDS: PEPCID PO SCH (10:19)
[2018-02-03] MEDS: HABITROL TD SCH (10:19)
[2018-02-03] MEDS: KEPPRA PO SCH (10:19)
[2018-02-03] MEDS: LEVAQUIN PO SCH (10:19)
[2018-02-03] MEDS: celeXA PO SCH (10:19)
[2018-02-03] MEDS: SODIUM CHLORIDE FLUSH SYRINGE 10 ML IV SCH (10:20)
--- NOTE | 2018-02-03 12:15 | Progress Note ---
Assessment and Plan Diabetic ketoacidosis. Acute encephalopathy, likely toxic metabolic. Severe metabolic acidosis. History of seizures. History of medication noncompliance. History of hypertension. History of psychosis. Tobacco use disorder. IgA deficiency. History of mitral valve prolapse. - continue glycemic control with long acting insulin therapy and SSI (lantus at 15 units) - prn anti-emetics - continue keppra for seizures - psychiatry evaluation (DKA related metabolic encephalopathy mostly resolved and likely baseline psych issues remain) - prn anti-hypertensives - GI & VTE prophylaxis - watch sugars closely re: non compliance and risk of rebound DKA (sugars in 200 's now and will increase lantus dose if persist's) ...re-evaluate in am & prn ...25' Subjective Date of service: 02/03/18 Principal diagnosis: DKA; Seizure Disorder; N&V; Abdominal Pain; HTN Interval history: Patient is seen today for: DKA; Seizure Disorder; N&V; Abdominal Pain Seen and examined at bedside; 24hour events reviewed; nursing and respiratory care staff consulted; no adverse overnight events reported to me; resting peacefully; Objective Vital Signs - 12hr 02/03/18 07:48 Temperature 97.6 F Pulse Rate 88 Respiratory 16 Rate Blood Pressure 140/91 O2 Sat by Pulse 96 Oximetry Constitutional: no acute distress, alert Eyes: non-icteric ENT: oropharynx moist, other (mallampati 2) Neck: supple, no lymphadenopathy, no JVD, other (no thyromegaly) Effort: normal Ascultation: Bilateral: clear Percussion: Bilateral: not dull Cardiovascular: regular rate and rhythm, other (no rubs or murmurs) Gastrointestinal: hypoactive bowel sounds, soft, tender (mild epigastric), non- distended, other (no palpable HSM) Integumentary: rash Extremities: no cyanosis, no edema, pink and warm, pulses normal Neurologic: normal mental status, non-focal exam, pupils equal and round, CN II- XII normal Psychiatric: affect normal, depressed CBC and BMP: 02/02/18 17:00 02/02/18 14:50 ABG, PT/INR, D-dimer: PT/INR, D-dimer PT 13.5 Sec. (12.2-14.9) 01/30/18 12:49 INR 0.98 (0.87-1.13) 01/30/18 12:49 Abnormal lab findings: Abnormal Labs 01/30/18 01/30/18 01/30/18 12:00 12:28 12:28 Hct 43.2 H MCV 101 H MCHC 29 L RDW 16.4 H Plt Count 459 H APTT VBG pH 7.080 L* Sodium Potassium Chloride Carbon Dioxide BUN Creatinine Glucose POC Glucose 412 H Lactic Acid Calcium Phosphorus Total Creatine Kinase CK-MB (CK-2) Rel Index Lipase 01/30/18 01/30/18 01/30/18 12:28 12:28 12:49 Hct MCV MCHC RDW Plt Count APTT 22.4 L VBG pH Sodium 132 L Potassium 5.2 H Chloride 86.2 L Carbon Dioxide 3 L* BUN Creatinine Glucose 614 H* POC Glucose Lactic Acid Calcium Phosphorus 5.40 H Total Creatine Kinase 23 L CK-MB (CK-2) Rel Index 5.2 H Lipase 9 L 01/30/18 01/30/18 01/30/18 15:06 15:11 16:21 Hct MCV MCHC RDW Plt Count APTT VBG pH Sodium 136 L Potassium Chloride 95.3 L Carbon Dioxide 4 L* BUN Creatinine Glucose 491 H POC Glucose 385 H 299 H Lactic Acid Calcium 8.0 L D Phosphorus Total Creatine Kinase CK-MB (CK-2) Rel Index Lipase 01/30/18 01/30/18 01/30/18 17:36 18:43 19:15 Hct MCV MCHC RDW Plt Count APTT VBG pH Sodium Potassium Chloride Carbon Dioxide BUN Creatinine Glucose POC Glucose 196 H 134 H 125 H Lactic Acid Calcium Phosphorus Total Creatine Kinase CK-MB (CK-2) Rel Index Lipase 01/30/18 01/30/18 01/31/18 20:08 21:03 01:02 Hct MCV MCHC RDW Plt Count APTT VBG pH Sodium Potassium Chloride Carbon Dioxide BUN Creatinine Glucose POC Glucose 109 H 117 H 127 H Lactic Acid Calcium Phosphorus Total Creatine Kinase CK-MB (CK-2) Rel Index Lipase 01/31/18 01/31/18 01/31/18 02:06 02:58 03:20 Hct MCV MCHC RDW Plt Count APTT VBG pH Sodium Potassium Chloride Carbon Dioxide 19 L D BUN Creatinine Glucose 140 H POC Glucose 158 H 156 H Lactic Acid Calcium 7.7 L Phosphorus Total Creatine Kinase CK-MB (CK-2) Rel Index Lipase 01/31/18 01/31/18 01/31/18 04:01 05:10 06:05 Hct MCV MCHC RDW Plt Count APTT VBG pH Sodium Potassium Chloride Carbon Dioxide BUN Creatinine Glucose POC Glucose 129 H 133 H 130 H Lactic Acid Calcium Phosphorus Total Creatine Kinase CK-MB (CK-2) Rel Index Lipase 01/31/18 01/31/18 01/31/18 06:48 09:31 10:34 Hct MCV MCHC RDW Plt Count APTT VBG pH Sodium Potassium Chloride Carbon Dioxide BUN Creatinine Glucose POC Glucose 132 H 200 H 198 H Lactic Acid Calcium Phosphorus Total Creatine Kinase CK-MB (CK-2) Rel Index Lipase 01/31/18 01/31/18 01/31/18 11:39 13:24 14:08 Hct MCV MCHC RDW Plt Count APTT VBG pH Sodium Potassium 3.5 L Chloride Carbon Dioxide 21 L BUN 5 L Creatinine 0.5 L Glucose 114 H POC Glucose 159 H 124 H Lactic Acid Calcium 8.1 L Phosphorus Total Creatine Kinase CK-MB (CK-2) Rel Index Lipase 01/31/18 01/31/18 01/31/18 14:08 14:08 14:34 Hct MCV MCHC RDW Plt Count APTT VBG pH Sodium Potassium 3.4 L Chloride Carbon Dioxide 20 L BUN 5 L Creatinine 0.5 L Glucose 112 H POC Glucose 110 H Lactic Acid 0.50 L Calcium 8.0 L Phosphorus Total Creatine Kinase CK-MB (CK-2) Rel Index Lipase 01/31/18 01/31/18 02/01/18 16:07 22:12 00:46 Hct MCV MCHC RDW Plt Count APTT VBG pH Sodium Potassium Chloride Carbon Dioxide BUN Creatinine Glucose POC Glucose 106 H 392 H 213 H Lactic Acid Calcium Phosphorus Total Creatine Kinase CK-MB (CK-2) Rel Index Lipase 02/01/18 02/01/18 02/01/18 07:33 08:17 12:20 Hct MCV MCHC RDW Plt Count APTT VBG pH Sodium Potassium Chloride Carbon Dioxide 19 L BUN 3 L Creatinine 0.4 L Glucose 223 H POC Glucose 163 H 197 H Lactic Acid Calcium 8.3 L Phosphorus Total Creatine Kinase CK-MB (CK-2) Rel Index Lipase 02/01/18 02/01/18 02/02/18 17:27 22:00 06:27 Hct MCV MCHC RDW Plt Count APTT VBG pH Sodium Potassium Chloride Carbon Dioxide BUN Creatinine Glucose POC Glucose 327 H 265 H 211 H Lactic Acid Calcium Phosphorus Total Creatine Kinase CK-MB (CK-2) Rel Index Lipase 02/02/18 02/02/18 02/02/18 08:59 11:52 16:54 Hct MCV MCHC RDW Plt Count APTT VBG pH Sodium Potassium Chloride Carbon Dioxide BUN Creatinine Glucose POC Glucose 336 H 195 H 328 H Lactic Acid Calcium Phosphorus Total Creatine Kinase CK-MB (CK-2) Rel Index Lipase 02/02/18 02/03/18 21:48 07:01 Hct MCV MCHC RDW Plt Count APTT VBG pH Sodium Potassium Chloride Carbon Dioxide BUN Creatinine Glucose POC Glucose 273 H 319 H Lactic Acid Calcium Phosphorus Total Creatine Kinase CK-MB (CK-2) Rel Index Lipase Allied health notes reviewed: nursing
[2018-02-03] MEDS: NORCO 5/325 PO PRN (12:40)
--- NOTE | 2018-02-03 12:52 | Discharge Summary ---
Providers - Providers Date of Admission: 01/30/18 13:42 Date of discharge: 02/03/18 Attending physician: RENU PATEL 01/30/18 12:45 Consult to Case Management [CONS] Routine Services Needed at Discharge: Other Notified:: yes If yes, spoke with:: Patti 01/30/18 14:37 Consult to Physician [CONS] Stat Comment: Consulting Provider: ALEX ARAGON Physician Instructions: Reason For Exam: icu 01/30/18 17:31 psychiatry consult [Consult to Mental Health] [CONS] Routine Reason For Exam: psychosis, Place consult to:: psych Notified:: yes Phone number called:: [phone] Was contact made?: Yes If yes, spoke with:: Enedina Time called:: 19:24 Primary care physician: [employer] COMP[employer] ADMINISTRATOR Hospitalization Condition: Stable Hospital course: Discharge diagnosis and management: / DKA, type 1 Placed on DKA Protocol: IVF resuscitation, insulin drip, monitor uop q shift, monitor anion gap, serial BMP, monitor serum potassium, replete as per protocol , AG significantly improved, stopped insulin drip, cont on subcutaneous insulin, consistent carbohydrate diet adjust insulin dose as needed- increase to 15 unit this am /Metabolic Encephalopathy Likely from DKA, resolved cont neuro checks, seizure precautions, tight control of blood glucose / Metabolic acidosis from uncontrolled blood glucose resolved with IVF resuscitation, insulin, / Anxiety and depression Psych consulted for evaluation, started on Celexa 10mg po QAM for depression and anxiety / Seizure disorder Initially IV keppra therapy, changed to PO as patient tolerating diet better. /Hypertension, monitor BP closely, placed on lisinopril /Abdominal pain with nausea - CT abdomen with oral contrast showed possible colitis - cont Abx / DVT prophylaxis SCD to BLE, while in bed. Brief history: 27 YO Female with DM, HTN, Seizure Disorder, Psychosis, Nicotine Dependence, IGA Deficiency, MVP, Medication Noncompliance who was released from the ICU as [facility] on Saturday S/P treatment for DKA. The patient has not taken her medication since discharge. Pt was noticed by family to be confused, and ill appearing. Pt was transported to [facility] by family. Pt seen and evaluated in ED and found to have DKA with coma, as well as severe metabolic acidosis. Radiological test: Chest x-ray: No acute infiltrates CT abdomen/pelvis- Mild wall thickening of the transverse and descending colon Hospitalist Physical exam: GENERAL: well-developed and well-nourished white female lying on bed appeared to be in no discomfort. HEENT: Normocephalic. Atraumatic. No conjunctival congestion or icterus. Patient has moist mucous membranes. NECK: Supple. Trachea midline. CHEST/LUNGS: Clear to auscultated bilaterally, breathing nonlabored. No wheezes crackles or rhonchi. HEART/CARDIOVASCULAR: Regular in rate and rhythm. S1 and S2 positive. ABDOMEN: Abdomen is soft, nontender. Patient has normal bowel sounds. SKIN: There is no rash. Warm and dry. NEURO: No focal motor deficit. Follows command. MUSCULOSKELETAL: No joint effusion or tenderness. EXTRIMITY: No edema, no cyanosis or clubbing. PSYCH: Cooperative. Disposition: DC/[place]-06 HOME [facility] Time spent for discharge: 32 minutes Core Measure Documentation - Palliative Care Palliative Care/ Comfort Measures: Not Applicable - Core Measures Any of the following diagnoses?: none Exam - Constitutional Vitals: Temp Pulse Resp BP Pulse Ox 97.6 F 88 16 140/91 96 02/03/18 07:48 02/03/18 07:48 02/03/18 07:48 02/03/18 07:48 02/03/18 07:48 Plan Activity: advance as tolerated Weight Bearing Status: Weight Bear as Tolerated Diet: diabetic Follow up with: PRIMARY CARE, [Primary Care Provider] - 3-5 Days Prescriptions: Citalopram [celeXA] 10 mg PO QDAY #30 tablet Insulin Glargine [Lantus VIAL] 15 units SUB-Q QAMDIAB 30 Days units Levofloxacin [Levaquin TAB] 750 mg PO QDAY #5 tablet Lisinopril [Zestril TAB] 20 mg PO QDAY #30 tablet
== END 2018-02-03 15:30 | disposition home or self-care (01) | DRG 637 ==
LOC: ED 11:53 → CC1 13:42 → 3A 02-01 11:02
PROVIDERS: ADMIT Internal Medicine; ATTEND Internal Medicine
PROC: 02HV33Z Insertion of Infusion Device into Superior Vena Cava, Percutaneous Approach (ICD-10-PCS; principal; 2018-01-30)
PROC: 3E0234Z Introduction of Serum, Toxoid and Vaccine into Muscle, Percutaneous Approach (ICD-10-PCS; 2018-01-30)
DX: E10.11 Type 1 diabetes mellitus with ketoacidosis with coma (principal); G93.41 Metabolic encephalopathy; K52.9 Noninfective gastroenteritis and colitis, unspecified; F41.9 Anxiety disorder, unspecified; F32.9 Major depressive disorder, single episode, unspecified; G40.909 Epilepsy, unspecified, not intractable, without status epilepticus; F17.200 Nicotine dependence, unspecified, uncomplicated; I10 Essential (primary) hypertension; Z91.14 Patient's other noncompliance with medication regimen; Z90.49 Acquired absence of other specified parts of digestive tract; Z90.89 Acquired absence of other organs; Z82.49 Family history of ischemic heart disease and other diseases of the circulatory system; Z88.6 Allergy status to analgesic agent; Z88.1 Allergy status to other antibiotic agents; Z88.0 Allergy status to penicillin; Z88.2 Allergy status to sulfonamides; Z88.8 Allergy status to other drugs, medicaments and biological substances; Z79.4 Long term (current) use of insulin; Z23 Encounter for immunization
CPT/HCPCS: 36415; 71045; 74176; 80048; 80074; 80307; 81001; 81025; 82140; 82550; 82553; 82805; 82962; 83690; 83735; 83880; 84100; 85025; 85027; 85610; 85730; 86140; 87040; 87086; 93005; 93010; 96374; 96375; 99291; 99292; 99406; C9113; J1650; J1815; J1953; J2270; J2405; J3370; J7030; J7050; Q0162

== ENCOUNTER 2018-11-22 09:54 | Inpatient (IN) | payer MEDICAID, OTHER ==
[2018-11-22] MEDS ORDERED: NACL 0.9% 1000 ML 1,000 ML ONE (10:05)
[2018-11-22] MEDS: NACL 0.9% 1000 ML 1,000 ML IV SCH ×3 (10:22→11:14)
[2018-11-22 10:29] LABS: Basophils # (Auto) 0.1 K/mm3 (0.0-0.1); Basophils % (Auto) 0.3 % (0.0-1.8); Lymphocytes # (Auto) 1.4 K/mm3 (1.2-5.4); Lymphocytes % (Auto) 7.1 % (13.4-35.0); Mean Corpuscular HGB Conc 30 % (30-34); Mean Corpuscular Volume 97 fl (79-97); Monocytes # (Auto) 0.9 K/mm3 (0.0-0.8); Monocytes % (Auto) 4.4 % (0.0-7.3); Platelet Count 521 K/mm3 (140-440); Red Blood Count 4.17 M/mm3 (3.65-5.03); Red Cell Distribution Width 14.8 % (13.2-15.2)
[2018-11-22 10:31] LABS: Calcium 9.5 mg/dL (8.4-10.2)
--- NOTE | 2018-11-22 10:32 | Emergency Department Report ---
ED General Adult HPI - General Chief complaint: Hyperglycemia Stated complaint: DKA Time Seen by Provider: 11/22/18 10:31 Source: patient, family Mode of arrival: Wheelchair Limitations: No Limitations - History of Present Illness Initial comments: Patient presented to the ED with generalized body weakness and vomiting. Patient is a diabetic. patient is currently too sick to give a medical history. She not answering questions at this time. -: Sudden Associated Symptoms: nausea/vomiting, weakness Treatments Prior to Arrival: none - Related Data Previous Rx's Medication Instructions Recorded Last Taken Type Cyclobenzaprine [Flexeril 10 MG 10 mg PO TID PRN #15 tablet 04/04/16 Unknown Rx TAB] HYDROcodone/APAP 5-325 [[place] 1 each PO Q6HR PRN #15 tablet 04/04/16 Unknown Rx 5-325 mg TAB] Insulin Aspart [NovoLOG 100 5 unit SQ AC #100 ml 04/04/16 Unknown Rx UNITS/ML VIAL] Insulin Glulisine [Apidra] 1 dose SUB-Q ACHS #100 units 04/04/16 Unknown Rx Nicotine [Habitrol] 14 mg TD QDAY #14 patch 04/04/16 Unknown Rx levETIRAcetam [Keppra TAB] 500 mg PO BID #60 tablet 04/04/16 Unknown Rx Citalopram [celeXA] 10 mg PO QDAY #30 tablet 02/03/18 Unknown Rx Insulin Glargine [Lantus VIAL] 15 units SUB-Q QAMDIAB 30 Days 02/03/18 Unknown Rx units Lisinopril [Zestril TAB] 20 mg PO QDAY #30 tablet 02/03/18 Unknown Rx levoFLOXacin [Levaquin TAB] 750 mg PO QDAY #5 tablet 02/03/18 Unknown Rx Allergies Allergy/AdvReac Type Severity Reaction Status Date / Time clarithromycin [From Biaxin] Allergy Hives Verified 11/22/18 09:56 erythromycin base Allergy Hives Verified 11/22/18 09:56 ketorolac [From Toradol] Allergy Bleeding Verified 11/22/18 09:56 nalbuphine HCl [From Nubain] Allergy Hives Verified 11/22/18 09:56 Penicillins Allergy Hives Verified 11/22/18 09:56 Sulfa (Sulfonamide Allergy Hives Verified 11/22/18 09:56 Antibiotics) tramadol Allergy Angioedema Verified 11/22/18 09:56 ED Review of Systems ROS: Stated complaint: DKA Other details as noted in HPI Constitutional: denies: chills, fever Eyes: denies: eye pain, eye discharge, vision change ENT: denies: ear pain, throat pain Respiratory: cough. denies: shortness of breath, wheezing Cardiovascular: denies: chest pain, palpitations Endocrine: no symptoms reported Gastrointestinal: nausea, vomiting. denies: abdominal pain, diarrhea Genitourinary: denies: urgency, dysuria, discharge Musculoskeletal: denies: back pain, joint swelling, arthralgia Skin: denies: rash, lesions Neurological: weakness (Generalized weakness and tiredness.). denies: headache, paresthesias Psychiatric: denies: anxiety, depression Hematological/Lymphatic: denies: easy bleeding, easy bruising ED Past Medical Hx - Past Medical History Hx Hypertension: Yes Hx Congestive Heart Failure: No Hx Diabetes: Yes Hx Seizures: Yes Hx Asthma: Yes Hx COPD: No Hx HIV: No Additional medical history: IgA deficiency, heart murmur, mitral valve prolapse, left ovarian cyst - Surgical History Hx Cholecystectomy: Yes Additional Surgical History: 9 sets of tubes in ears. Tonsilectomy and adenoidectomy. - Social History Smoking Status: Current Every Day Smoker - Medications Home Medications: Home Medications Medication Instructions Recorded Confirmed Last Taken Type Cyclobenzaprine [Flexeril 10 MG 10 mg PO TID PRN #15 tablet 04/04/16 Unknown Rx TAB] HYDROcodone/APAP 5-325 [[place] 1 each PO Q6HR PRN #15 tablet 04/04/16 Unknown Rx 5-325 mg TAB] Insulin Aspart [NovoLOG 100 5 unit SQ AC #100 ml 04/04/16 Unknown Rx UNITS/ML VIAL] Insulin Glulisine [Apidra] 1 dose SUB-Q ACHS #100 units 04/04/16 Unknown Rx Nicotine [Habitrol] 14 mg TD QDAY #14 patch 04/04/16 Unknown Rx levETIRAcetam [Keppra TAB] 500 mg PO BID #60 tablet 04/04/16 Unknown Rx Citalopram [celeXA] 10 mg PO QDAY #30 tablet 02/03/18 Unknown Rx Insulin Glargine [Lantus VIAL] 15 units SUB-Q QAMDIAB 30 Days 02/03/18 Unknown Rx units Lisinopril [Zestril TAB] 20 mg PO QDAY #30 tablet 02/03/18 Unknown Rx levoFLOXacin [Levaquin TAB] 750 mg PO QDAY #5 tablet 02/03/18 Unknown Rx ED Physical Exam - General Limitations: No Limitations General appearance: alert, in no apparent distress, lethargic - Head Head exam: Present: atraumatic, normocephalic, normal inspection - Eye Eye exam: Present: normal appearance, PERRL, EOMI Pupils: Present: normal accommodation - ENT ENT exam: Present: mucous membranes dry - Neck Neck exam: Present: normal inspection, full ROM. Absent: tenderness - Respiratory Respiratory exam: Present: normal lung sounds bilaterally. Absent: respiratory distress, wheezes, rales, rhonchi - Cardiovascular Cardiovascular Exam: Present: regular rate, normal rhythm, normal heart sounds. Absent: systolic murmur, diastolic murmur, rubs, gallop - GI/Abdominal GI/Abdominal exam: Present: soft, normal bowel sounds. Absent: distended, tenderness, guarding, rebound - Extremities Exam Extremities exam: Present: normal inspection, full ROM, normal capillary refill. Absent: tenderness - Back Exam Back exam: Present: normal inspection, full ROM - Neurological Exam Neurological exam: Present: alert, oriented X3 - Psychiatric Psychiatric exam: Present: normal mood, flat affect - Skin Skin exam: Present: warm, dry, intact, normal color. Absent: rash ED Course Vital Signs 11/22/18 11/22/18 09:56 10:23 Temperature 96.9 F L Pulse Rate 130 H Respiratory 42 H Rate Blood Pressure 131/85 O2 Sat by Pulse 100 Oximetry - Consultations Consultation #1: 11/22/18 10:50 Dr Marte to admit under Dr Rasmussen to ICU for further management. ED Medical Decision Making - Lab Data Result diagrams: 11/22/18 10:03 11/22/18 10:03 Lab Results 11/22/18 11/22/18 11/22/18 Range/Units 09:59 10:03 10:03 WBC 19.9 H (4.5-11.0) K/mm3 RBC 4.17 (3.65-5.03) M/mm3 Hgb 12.1 (10.1-14.3) gm/dl Hct 40.6 (30.3-42.9) % MCV 97 (79-97) fl MCH 29 (28-32) pg MCHC 30 (30-34) % RDW 14.8 (13.2-15.2) % Plt Count 521 H (140-440) K/mm3 Lymph % (Auto) 7.1 L (13.4-35.0) % [place] % (Auto) 4.4 (0.0-7.3) % Eos % (Auto) 0.0 (0.0-4.3) % Baso % (Auto) 0.3 (0.0-1.8) % Lymph # 1.4 (1.2-5.4) K/mm3 [place] # 0.9 H (0.0-0.8) K/mm3 Eos # 0.0 (0.0-0.4) K/mm3 Baso # 0.1 (0.0-0.1) K/mm3 Seg Neutrophils % 88.2 H (40.0-70.0) % Seg Neutrophils # 17.5 H (1.8-7.7) K/mm3 VBG pH (7.320-7.420) Sodium 140 (137-145) mmol/L Potassium 4.4 (3.6-5.0) mmol/L Chloride 88.3 L (98-107) mmol/L Carbon Dioxide 6 L* (22-30) mmol/L Anion Gap 50 mmol/L BUN 28 H (7-17) mg/dL Creatinine 1.5 H (0.7-1.2) mg/dL Estimated GFR 41 ml/min BUN/Creatinine Ratio 19 % Glucose 741 H* (65-100) mg/dL POC Glucose > 500 H (70-105) Calcium 9.5 (8.4-10.2) mg/dL 11/22/18 Range/Units 10:03 WBC (4.5-11.0) K/mm3 RBC (3.65-5.03) M/mm3 Hgb (10.1-14.3) gm/dl Hct (30.3-42.9) % MCV (79-97) fl MCH (28-32) pg MCHC (30-34) % RDW (13.2-15.2) % Plt Count (140-440) K/mm3 Lymph % (Auto) (13.4-35.0) % [place] % (Auto) (0.0-7.3) % Eos % (Auto) (0.0-4.3) % Baso % (Auto) (0.0-1.8) % Lymph # (1.2-5.4) K/mm3 [place] # (0.0-0.8) K/mm3 Eos # (0.0-0.4) K/mm3 Baso # (0.0-0.1) K/mm3 Seg Neutrophils % (40.0-70.0) % Seg Neutrophils # (1.8-7.7) K/mm3 VBG pH 7.158 L* (7.320-7.420) Sodium (137-145) mmol/L Potassium (3.6-5.0) mmol/L Chloride (98-107) mmol/L Carbon Dioxide (22-30) mmol/L Anion Gap mmol/L BUN (7-17) mg/dL Creatinine (0.7-1.2) mg/dL Estimated GFR ml/min BUN/Creatinine Ratio % Glucose (65-100) mg/dL POC Glucose (70-105) Calcium (8.4-10.2) mg/dL - Medical Decision Making DKA. Patient will be admitted to ICU for further management. Critical Care Time: Yes Critical care time in (mins) excluding proc time.: 50 Critical care attestation.: If time is entered above; I have spent that time in minutes in the direct care of this critically ill patient, excluding procedure time. ED Disposition Clinical Impression: DKA (diabetic ketoacidosis) Qualifiers: Diabetes mellitus type: type 1 Diabetes mellitus complication detail: without coma Qualified Code(s): E10.10 - Type 1 diabetes mellitus with ketoacidosis without coma DKA, type 1 Qualifiers: Diabetes mellitus complication detail: without coma Qualified Code(s): E10.10 - Type 1 diabetes mellitus with ketoacidosis without coma Disposition: DC09 OP ADMIT IP TO THIS HOSP Is pt being admited?: Yes Does the pt Need Aspirin: No Condition: Stable Instructions: Diabetic Ketoacidosis (ED), Diabetes Mellitus Type 2 in Adults (ED) Time of Disposition: 10:52
[2018-11-22 10:41] LABS: Hematocrit 40.6 % (30.3-42.9); Hemoglobin 12.1 gm/dl (10.1-14.3)
[2018-11-22] MEDS ORDERED: NACL 0.9% 1000 ML 1,000 ML IV ONE ×2 (10:41→11:00)
[2018-11-22] MEDS ORDERED: D50W (25GM) Syringe IV PRN (10:41)
[2018-11-22] MEDS ORDERED: HumuLIN R IV ONE (10:43)
[2018-11-22] MEDS ORDERED: HumuLIN R 100 UNITS in NACL 0.9% 99 ML IV SCH (11:00)
[2018-11-22] MEDS ORDERED: SODIUM CHLORIDE FLUSH SYRINGE 10 ML IV PRN (11:08)
[2018-11-22] MEDS: SODIUM CHLORIDE FLUSH SYRINGE 10 ML IV SCH ×2 (11:10→22:00)
[2018-11-22 11:38] LABS: Albumin 4.2 g/dL (3.9-5); Bilirubin,Direct 0.3 mg/dL (0-0.2); Chol/HDL Ratio 2.31 %
[2018-11-22] MEDS ORDERED: LEVAQUIN 750MG/150ML 750 MG/150 ML BAG IV ONE ×2 (11:50→12:34)
[2018-11-22] MEDS ORDERED: MORPHINE IV ONE (11:51)
[2018-11-22] MEDS ORDERED: ZOFRAN IV ONE (11:52)
--- NOTE | 2018-11-22 12:45 | Consultation ---
History of Present Illness Consult date: 11/22/18 Requesting physician: LETICIA LÓPEZ Reason for consult: other (DKA) History of present illness: PULMONARY/CCM CONSULT NOTE (Full dictation # [id number]) Please see dictated notes for full details Medications and Allergies Allergies Allergy/AdvReac Type Severity Reaction Status Date / Time clarithromycin [From Biaxin] Allergy Hives Verified 11/22/18 09:56 erythromycin base Allergy Hives Verified 11/22/18 09:56 ketorolac [From Toradol] Allergy Bleeding Verified 11/22/18 09:56 nalbuphine HCl [From Nubain] Allergy Hives Verified 11/22/18 09:56 Penicillins Allergy Hives Verified 11/22/18 09:56 Sulfa (Sulfonamide Allergy Hives Verified 11/22/18 09:56 Antibiotics) tramadol Allergy Angioedema Verified 11/22/18 09:56 Home Medications Medication Instructions Recorded Confirmed Last Taken Type Insulin Aspart [NovoLOG 100 5 unit SQ AC #100 ml 04/04/16 11/23/18 Unknown Rx UNITS/ML VIAL] Insulin Glulisine [Apidra] 1 dose SUB-Q ACHS #100 units 04/04/16 11/23/18 Unknown Rx Nicotine [Habitrol] 14 mg TD QDAY #14 patch 04/04/16 11/23/18 Unknown Rx levETIRAcetam [Keppra TAB] 500 mg PO BID #60 tablet 04/04/16 11/23/18 09/27/18 Rx 500mg Insulin Glargine [Lantus VIAL] 15 units SUB-Q QAMDIAB 30 Days 02/03/18 11/23/18 Unknown Rx units Lisinopril [Zestril TAB] 20 mg PO QDAY #30 tablet 02/03/18 11/23/18 Unknown Rx Acyclovir [Zovirax] 400 mg PO BID 11/23/18 11/23/18 Unknown History Nortriptyline [Pamelor] 25 mg PO QHS 11/23/18 11/23/18 Unknown History Active Meds: Active Medications Dextrose (D50w (25gm) Syringe) 0 ml IV ONCE PRN PRN Reason: Hypoglycemia Insulin Human Regular 100 (units/ Sodium Chloride) 100 mls @ 1 mls/hr IV TITR LESTER; Protocol Last Admin: 11/22/18 11:45 Dose: 8 units/hr, 8 mls/hr Documented by: Levofloxacin/Dextrose (Levaquin 750mg/150ml) 750 mg in 150 mls @ 100 mls/hr IV ONCE ONE Stop: 11/22/18 13:19 Sodium Chloride (Sodium Chloride Flush Syringe 10 Ml) 10 ml IV BID LESTER Last Admin: 11/22/18 11:10 Dose: 10 ml Documented by: Sodium Chloride (Sodium Chloride Flush Syringe 10 Ml) 10 ml IV PRN PRN PRN Reason: LINE FLUSH Physical Examination Vital signs: Vital Signs Pulse Resp BP Pulse Ox 130 H 42 H 131/85 100 11/22/18 09:56 11/22/18 09:56 11/22/18 09:56 11/22/18 09:56 Results - Laboratory Findings CBC and BMP: 11/24/18 04:41 11/24/18 04:41 Abnormal lab findings: Abnormal Labs 11/22/18 11/22/18 11/22/18 09:59 10:03 10:03 WBC 19.9 H Plt Count 521 H Lymph % (Auto) 7.1 L [place] # 0.9 H Seg Neutrophils % 88.2 H Seg Neutrophils # 17.5 H VBG pH Chloride 88.3 L Carbon Dioxide 6 L* BUN 28 H Creatinine 1.5 H Glucose 741 H* POC Glucose > 500 H Hemoglobin A1c Phosphorus Direct Bilirubin ALT Alkaline Phosphatase LDL Cholesterol Direct 11/22/18 11/22/18 11/22/18 10:03 10:03 10:03 WBC Plt Count Lymph % (Auto) [place] # Seg Neutrophils % Seg Neutrophils # VBG pH 7.158 L* Chloride Carbon Dioxide BUN Creatinine Glucose POC Glucose Hemoglobin A1c 12.8 H Phosphorus 6.80 H Direct Bilirubin 0.3 H ALT 65 H Alkaline Phosphatase 209 H LDL Cholesterol Direct 44 L 11/22/18 11:43 WBC Plt Count Lymph % (Auto) [place] # Seg Neutrophils % Seg Neutrophils # VBG pH Chloride Carbon Dioxide BUN Creatinine Glucose POC Glucose 411 H Hemoglobin A1c Phosphorus Direct Bilirubin ALT Alkaline Phosphatase LDL Cholesterol Direct
--- NOTE | 2018-11-22 13:28 | History and Physical Report ---
History of Present Illness Date of admission: 11/22/18 11:08 Chief complaint: Confused History of present illness: 28 YO Female with DM, HTN, Seizure Disorder, Psychosis, Nicotine Dependence, IGA Deficiency, MVP, Medication Noncompliance, Polusubstance Abuse presents to ED for evaluation. Pt is confused and unable to provide history. Pt history provided by family who is at bedside during exam and interview. As per family, the patient has experienced nausea, and multiple episodes of vomiting over the past 2 days. The patient has not taken her medication in several days. Pt was noticed by family to be confused, and ill appearing. Pt was transported to [facility] by family. Pt seen and evaluated in ED and found to have DKA with coma, Sepsis, Encephalopathy, and Acute Renal Failure. No reports of fever, chills, CP, Palpitation, Syncope, BRBPR, Seizures, Trauma, or recent ill contacts. Past History Past Medical History: diabetes, hyperlipidemia, seizures, other (IGA) Past Surgical History: cholecystectomy, tonsillectomy Social history: single, smoking Family history: diabetes, hypertension Medications and Allergies Allergies Allergy/AdvReac Type Severity Reaction Status Date / Time clarithromycin [From Biaxin] Allergy Hives Verified 11/22/18 09:56 erythromycin base Allergy Hives Verified 11/22/18 09:56 ketorolac [From Toradol] Allergy Bleeding Verified 11/22/18 09:56 nalbuphine HCl [From Nubain] Allergy Hives Verified 11/22/18 09:56 Penicillins Allergy Hives Verified 11/22/18 09:56 Sulfa (Sulfonamide Allergy Hives Verified 11/22/18 09:56 Antibiotics) tramadol Allergy Angioedema Verified 11/22/18 09:56 Home Medications Medication Instructions Recorded Confirmed Last Taken Type Cyclobenzaprine [Flexeril 10 MG 10 mg PO TID PRN #15 tablet 04/04/16 Unknown Rx TAB] HYDROcodone/APAP 5-325 [R[place]helle 1 each PO Q6HR PRN #15 tablet 04/04/16 Unknown Rx 5-325 mg TAB] Insulin Aspart [NovoLOG 100 5 unit SQ AC #100 ml 04/04/16 Unknown Rx UNITS/ML VIAL] Insulin Glulisine [Apidra] 1 dose SUB-Q ACHS #100 units 04/04/16 Unknown Rx Nicotine [Habitrol] 14 mg TD QDAY #14 patch 04/04/16 Unknown Rx levETIRAcetam [Keppra TAB] 500 mg PO BID #60 tablet 04/04/16 Unknown Rx Citalopram [celeXA] 10 mg PO QDAY #30 tablet 02/03/18 Unknown Rx Insulin Glargine [Lantus VIAL] 15 units SUB-Q QAMDIAB 30 Days 02/03/18 Unknown Rx units Lisinopril [Zestril TAB] 20 mg PO QDAY #30 tablet 02/03/18 Unknown Rx levoFLOXacin [Levaquin TAB] 750 mg PO QDAY #5 tablet 02/03/18 Unknown Rx Active Meds: Active Medications Dextrose (D50w (25gm) Syringe) 0 ml IV ONCE PRN PRN Reason: Hypoglycemia Insulin Human Regular 100 (units/ Sodium Chloride) 100 mls @ 1 mls/hr IV TITR LESTER; Protocol Last Titration: 11/22/18 12:45 Dose: 5 units/hr, 5 mls/hr Documented by: Sodium Chloride (Sodium Chloride Flush Syringe 10 Ml) 10 ml IV BID LESTER Last Admin: 11/22/18 11:10 Dose: 10 ml Documented by: Sodium Chloride (Sodium Chloride Flush Syringe 10 Ml) 10 ml IV PRN PRN PRN Reason: LINE FLUSH Review of Systems ROS unobtainable: due to mental status Exam - Constitutional Vitals: Temp Pulse Resp BP Pulse Ox 96.9 F L 128 H 15 140/87 100 11/22/18 10:23 11/22/18 12:46 11/22/18 12:46 11/22/18 12:46 11/22/18 12:46 General appearance: Present: severe distress, cachectic, disheveled - EENT Eyes: Present: miosis - Neck Neck: Present: supple, normal ROM - Respiratory Respiratory effort: normal Respiratory: bilateral: CTA - Cardiovascular Rhythm: other (tachycardia) Heart Sounds: Present: S1 & S2. Absent: rub, click Peripheral Pulses: abnormal (1+,= bilaterally) - Abdominal General gastrointestinal: Present: soft, non-tender, non-distended, normal bowel sounds Female genitourinary: Present: normal - Rectal Rectal Exam: normal exam-external/orifice - Integumentary Integumentary: Present: clear, dry, clammy, decreased turgor - Musculoskeletal Musculoskeletal: generalized weakness - Psychiatric Psychiatric: no appropriate mood/affect, no intact judgment & insight, no memory intact - Neurologic Neurologic: CNII-XII intact, moves all extremities, no gait normal Results - Labs CBC & Chem 7: 11/22/18 10:03 11/22/18 12:51 Labs: Abnormal lab results 11/22/18 11/22/18 11/22/18 Range/Units 09:59 10:03 10:03 WBC 19.9 H (4.5-11.0) K/mm3 Plt Count 521 H (140-440) K/mm3 Lymph % (Auto) 7.1 L (13.4-35.0) % [place] # 0.9 H (0.0-0.8) K/mm3 Seg Neutrophils % 88.2 H (40.0-70.0) % Seg Neutrophils # 17.5 H (1.8-7.7) K/mm3 VBG pH (7.320-7.420) Chloride 88.3 L (98-107) mmol/L Carbon Dioxide 6 L* (22-30) mmol/L BUN 28 H (7-17) mg/dL Creatinine 1.5 H (0.7-1.2) mg/dL Glucose 741 H* (65-100) mg/dL POC Glucose > 500 H (70-105) Hemoglobin A1c (4-6) % Phosphorus (2.5-4.5) mg/dL Direct Bilirubin (0-0.2) mg/dL ALT (7-56) units/L Alkaline Phosphatase (35-129) units/L LDL Cholesterol Direct (50-130) mg/dL 11/22/18 11/22/18 11/22/18 Range/Units 10:03 10:03 10:03 WBC (4.5-11.0) K/mm3 Plt Count (140-440) K/mm3 Lymph % (Auto) (13.4-35.0) % [place] # (0.0-0.8) K/mm3 Seg Neutrophils % (40.0-70.0) % Seg Neutrophils # (1.8-7.7) K/mm3 VBG pH 7.158 L* (7.320-7.420) Chloride (98-107) mmol/L Carbon Dioxide (22-30) mmol/L BUN (7-17) mg/dL Creatinine (0.7-1.2) mg/dL Glucose (65-100) mg/dL POC Glucose (70-105) Hemoglobin A1c 12.8 H (4-6) % Phosphorus 6.80 H (2.5-4.5) mg/dL Direct Bilirubin 0.3 H (0-0.2) mg/dL ALT 65 H (7-56) units/L Alkaline Phosphatase 209 H (35-129) units/L LDL Cholesterol Direct 44 L (50-130) mg/dL 11/22/18 11/22/18 Range/Units 11:43 12:54 WBC (4.5-11.0) K/mm3 Plt Count (140-440) K/mm3 Lymph % (Auto) (13.4-35.0) % [place] # (0.0-0.8) K/mm3 Seg Neutrophils % (40.0-70.0) % Seg Neutrophils # (1.8-7.7) K/mm3 VBG pH (7.320-7.420) Chloride (98-107) mmol/L Carbon Dioxide (22-30) mmol/L BUN (7-17) mg/dL Creatinine (0.7-1.2) mg/dL Glucose (65-100) mg/dL POC Glucose 411 H 278 H (70-105) Hemoglobin A1c (4-6) % Phosphorus (2.5-4.5) mg/dL Direct Bilirubin (0-0.2) mg/dL ALT (7-56) units/L Alkaline Phosphatase (35-129) units/L LDL Cholesterol Direct (50-130) mg/dL Assessment and Plan - Patient Problems (1) Sepsis Current Visit: Yes Status: Acute Qualifiers: Sepsis type: sepsis due to unspecified organism Qualified Code(s): A41.9 - Sepsis, unspecified organism Plan to address problem: IVF resuscitation therapy, IV antibiotic therapy, blood cultures, serial lactic acid level, monitor uop q shift, chest x ray, urinalysis. The high probability of a clinically significant, sudden or life threatening deterioration of the [neuro, endocrine, renal] system(s) required my full and direct attention, intervention and personal management. The aggregate critical care time was [65] minutes. This time is in addition to time spent performing reported procedures but includes the following: [x] Data Review and interpretation [x] Patient assessment and monitoring of vital signs [x] Documentation [x] Medication orders and management (2) DKA (diabetic ketoacidosis) Current Visit: Yes Status: Acute Qualifiers: Diabetes mellitus type: type 1 Diabetes mellitus complication detail: with coma Qualified Code(s): E10.11 - Type 1 diabetes mellitus with ketoacidosis with coma Plan to address problem: DKA Protocol: Insulin drip, serial bmp, monitor uop q shift, monitor uop q shift, monitor anion gap. (3) ARF (acute renal failure) with tubular necrosis Current Visit: Yes Status: Acute Plan to address problem: IVF resuscitataion, monitor uop q shift, serial bmp to monitor serum creatnine (4) Encephalopathy Current Visit: Yes Status: Acute Plan to address problem: Toxic Encephalopathy: Treat sepsis, IVF resuscitation, neuro checks, (5) Acidosis Current Visit: No Status: Acute Plan to address problem: IVF resuscitation, IV bicarbonate, serial bmp (6) DVT prophylaxis Current Visit: No Status: Acute Plan to address problem: SCD to BLE while in bed
--- NOTE | 2018-11-22 13:29 | XRay Report ---
FINAL REPORT PROCEDURE: XR CHEST 1V AP TECHNIQUE: Chest radiograph anteroposterior view. CPT 66890 HISTORY: cough COMPARISON: 01/30/2018 FINDINGS: Heart: Normal. Mediastinum/Vessels: Normal. Lungs/Pleural space: No infiltrate, effusion, or pneumothorax. Bony thorax: No acute osseous abnormality. Life support devices: None. IMPRESSION: No radiographic evidence of acute cardiopulmonary abnormality.
[2018-11-22 13:35] LABS: Calcium 8.5 mg/dL (8.4-10.2)
[2018-11-22 14:21] LABS: Bilirubin,Urine NEG (Negative); Blood,Urine SM (Negative); Color,Urine Straw (Yellow); Protein,Urine <15 mg/dL mg/dL (Negative); Urobilinogen,Urine < 2.0 mg/dL (<2.0)
[2018-11-22 14:35] LABS: Benzodiazepines Screen,Urine PRESUMPTIVE NEGATIVE; Cannabinoid Screen,Urine PRESUMPTIVE NEGATIVE; Cocaine Screen,Urine PRESUMPTIVE NEGATIVE; Methadone Screen,Urine PRESUMPTIVE NEGATIVE; Opiate Screen,Urine PRESUMPTIVE NEGATIVE
[2018-11-22 14:50] LABS: Amphetamine Screen,Urine PRESUMPTIVE POSITIVE
[2018-11-22] MEDS ORDERED: NACL 0.9% 1000 ML IV ONE (15:00)
[2018-11-22 15:41] LABS: Microalbumin/Creatinine Ratio 40.6 ug/mg
[2018-11-22] MEDS: ANTIBIOTIC OINT TP SCH ×2 (16:12→22:00)
[2018-11-22 16:24] LABS: BUN/Creatinine Ratio 21; Blood Urea Nitrogen 19 mg/dL (7-17); Calcium 7.8 mg/dL (8.4-10.2); Hemolysis Index 2
[2018-11-22] MEDS ORDERED: NACL 0.45% 1000 ML 1,000 ML IV SCH (20:00)
[2018-11-22 20:48] LABS: BUN/Creatinine Ratio 20; Blood Urea Nitrogen 16 mg/dL (7-17); Calcium 7.8 mg/dL (8.4-10.2); Hemolysis Index 17
[2018-11-22] MEDS ORDERED: D5/0.45NS 1,000 ML IV SCH (21:00)
[2018-11-23] MEDS ORDERED: MORPHINE IV ONE (02:04)
[2018-11-23 03:49] LABS: BUN/Creatinine Ratio 17; Blood Urea Nitrogen 12 mg/dL (7-17); Hemolysis Index 4
[2018-11-23] MEDS ORDERED: PHENERGAN PR PRN (08:42)
--- NOTE | 2018-11-23 08:44 | Progress Note ---
Assessment and Plan Assessment and plan: 28F who presents with ams, brought in by family for vomiting x2 days, she was unable to give hx at time of admission due to AMS pmh; hypertension, diabetes, seizure disorder, psychosis, nicotine dependence, IgA deficiency, medication nonadherence, active use of amphetamines UDS post for meth UA neg for pyuria CXR no acute findings Diagnosis -Amphetamine abuse -DKA -uncontrolled DM -Acute toxic and metabolic encephalopathy -Seizure disorder -HTN -TAMIKO- ruled out -Hypokalemia -Dehydration -SIRS, without organ dysfunction; no evidence of sepsis intractable n/v Plan -counseled about meth cessation -Insulin drip, transition to sq insulin -K repleted -mentation improving check a1c antiemetics as needed, IV fluids dispo; home when tolerating PO CCT 33 mins History Interval history: Review of systems Constitutional: No fevers, no malaise, no joint pains CVS: No chest pain, no orthopnea, no dyspnea on exertion, no pedal edema GI: No abdominal pain, no diarrhea, no vomiting, no constipation Respiratory: No shortness of breath, no wheezing, no coughing Hospitalist Physical - Physical exam Narrative exam: General.: Appears well, no distress, nontoxic HEENT: Moist mucous membranes, extraocular muscles intact, no lymphadenopathy Neck: supple Cardiac: S1-S2 heard Lungs: clear to auscultation bilaterally Abdomen: soft , nontender, nondistended, bowel sounds positive Extremities: no edema clubbing or cyanosis Skin: no rash or lesions Neurologic: no gross focal deficits Psych: calm, and cooperative - Constitutional Vitals: Temp Pulse Resp BP Pulse Ox 99.0 F 95 H 14 133/85 98 11/23/18 04:00 11/23/18 08:10 11/23/18 08:10 11/23/18 08:10 11/23/18 08:10 General appearance: Present: severe distress, cachectic, disheveled Results - Labs CBC & Chem 7: 11/22/18 10:03 11/23/18 02:52 Labs: Laboratory Last Values WBC 19.9 K/mm3 (4.5-11.0) H 11/22/18 10:03 RBC 4.17 M/mm3 (3.65-5.03) 11/22/18 10:03 Hgb 12.1 gm/dl (10.1-14.3) 11/22/18 10:03 Hct 40.6 % (30.3-42.9) 11/22/18 10:03 MCV 97 fl (79-97) 11/22/18 10:03 MCH 29 pg (28-32) 11/22/18 10:03 MCHC 30 % (30-34) 11/22/18 10:03 RDW 14.8 % (13.2-15.2) 11/22/18 10:03 Plt Count 521 K/mm3 (140-440) H 11/22/18 10:03 Lymph % (Auto) 7.1 % (13.4-35.0) L 11/22/18 10:03 [place] % (Auto) 4.4 % (0.0-7.3) 11/22/18 10:03 Eos % (Auto) 0.0 % (0.0-4.3) 11/22/18 10:03 Baso % (Auto) 0.3 % (0.0-1.8) 11/22/18 10:03 Lymph # 1.4 K/mm3 (1.2-5.4) 11/22/18 10:03 [place] # 0.9 K/mm3 (0.0-0.8) H 11/22/18 10:03 Eos # 0.0 K/mm3 (0.0-0.4) 11/22/18 10:03 Baso # 0.1 K/mm3 (0.0-0.1) 11/22/18 10:03 Seg Neutrophils % 88.2 % (40.0-70.0) H 11/22/18 10:03 Seg Neutrophils # 17.5 K/mm3 (1.8-7.7) H 11/22/18 10:03 VBG pH 7.158 (7.320-7.420) L* 11/22/18 10:03 Sodium 142 mmol/L (137-145) 11/23/18 02:52 Potassium 3.3 mmol/L (3.6-5.0) L 11/23/18 02:52 Chloride 108.7 mmol/L (98-107) H 11/23/18 02:52 Carbon Dioxide 24 mmol/L (22-30) 11/23/18 02:52 Anion Gap 13 mmol/L 11/23/18 02:52 BUN 12 mg/dL (7-17) 11/23/18 02:52 Creatinine 0.7 mg/dL (0.7-1.2) 11/23/18 02:52 Estimated GFR > 60 ml/min 11/23/18 02:52 BUN/Creatinine Ratio 17 % 11/23/18 02:52 Glucose 155 mg/dL (65-100) H 11/23/18 02:52 POC Glucose 126 (70-105) H 11/23/18 08:14 Hemoglobin A1c 12.8 % (4-6) H 11/22/18 10:03 Lactic Acid 0.70 mmol/L (0.7-2.0) 11/22/18 19:38 Calcium 8.0 mg/dL (8.4-10.2) L 11/23/18 02:52 Phosphorus 6.80 mg/dL (2.5-4.5) H 11/22/18 10:03 Magnesium 2.20 mg/dL (1.7-2.3) 11/22/18 10:03 Total Bilirubin 0.90 mg/dL (0.1-1.2) 11/22/18 10:03 Direct Bilirubin 0.3 mg/dL (0-0.2) H 11/22/18 10:03 Indirect Bilirubin 0.6 mg/dL 11/22/18 10:03 AST 24 units/L (5-40) 11/22/18 10:03 ALT 65 units/L (7-56) H 11/22/18 10:03 Alkaline Phosphatase 209 units/L (35-129) H 11/22/18 10:03 Total Protein 7.7 g/dL (6.3-8.2) 11/22/18 10:03 Albumin 4.2 g/dL (3.9-5) 11/22/18 10:03 Albumin/Globulin Ratio 1.2 % 11/22/18 10:03 Triglycerides 147 mg/dL (2-149) 11/22/18 10:03 Cholesterol 111 mg/dL (50-199) 11/22/18 10:03 LDL Cholesterol Direct 44 mg/dL (50-130) L 11/22/18 10:03 HDL Cholesterol 48 mg/dL (40-59) 11/22/18 10:03 Cholesterol/HDL Ratio 2.31 % 11/22/18 10:03 HCG, Qual Negative (Negative) 11/22/18 10:58 Urine Color Straw (Yellow) 11/22/18 13:55 Urine Turbidity Clear (Clear) 11/22/18 13:55 Urine pH 5.0 (5.0-7.0) 11/22/18 13:55 Ur Specific [place] 1.015 (1.003-1.030) 11/22/18 13:55 Urine Protein <15 mg/dl mg/dL (Negative) 11/22/18 13:55 Urine Glucose (UA) >=500 mg/dL (Negative) 11/22/18 13:55 Urine Ketones 80 mg/dL (Negative) 11/22/18 13:55 Urine Blood Sm (Negative) 11/22/18 13:55 Urine Nitrite Neg (Negative) 11/22/18 13:55 Urine Bilirubin Neg (Negative) 11/22/18 13:55 Urine Urobilinogen < 2.0 mg/dL (<2.0) 11/22/18 13:55 Ur Leukocyte Esterase Neg (Negative) 11/22/18 13:55 Urine WBC (Auto) 2.0 /HPF (0.0-6.0) 11/22/18 13:55 Urine RBC (Auto) 1.0 /HPF (0.0-6.0) 11/22/18 13:55 U Epithel Cells (Auto) 1.0 /HPF (0-13.0) 11/22/18 13:55 Urine Creatinine 32.0 mg/dL (0.1-20.0) H 11/22/18 13:55 Urine Microalbumin 1.3 mg/dL (0.1-34.0) 11/22/18 13:55 Microalb/Creat Ratio 40.6 ug/mg 11/22/18 13:55 Urine Opiates Screen Presumptive negative 11/22/18 13:55 Urine Methadone Screen Presumptive negative 11/22/18 13:55 Ur Barbiturates Screen Presumptive negative 11/22/18 13:55 Ur Phencyclidine Scrn Presumptive negative 11/22/18 13:55 Ur Amphetamines Screen Presumptive positive 11/22/18 13:55 U Benzodiazepines Scrn Presumptive negative 11/22/18 13:55 Urine Cocaine Screen Presumptive negative 11/22/18 13:55 U Marijuana (THC) Screen Presumptive negative 11/22/18 13:55 Drugs of Abuse Note Disclamer 11/22/18 13:55
[2018-11-23] MEDS ORDERED: KCL 40 MEQ in NACL 0.45% 500 ML IV SCH (08:45)
[2018-11-23] MEDS: NACL 0.45% 1000 ML 1,000 ML IV SCH ×2 (09:13→17:49)
[2018-11-23] MEDS: HABITROL TD SCH (10:13)
[2018-11-23] MEDS: KEPPRA PO SCH ×2 (10:14→22:50)
[2018-11-23] MEDS: ANTIBIOTIC OINT TP SCH ×2 (10:14→22:50)
[2018-11-23] MEDS: SODIUM CHLORIDE FLUSH SYRINGE 10 ML IV SCH ×2 (10:14→22:50)
[2018-11-23] MEDS: celeXA PO SCH (10:15)
[2018-11-23] MEDS ORDERED: INSULIN ASPART 5 UNIT SQ SCH (11:30)
[2018-11-23] MEDS: HumaLOG SUB-Q SCH ×5 (11:37→22:50)
--- NOTE | 2018-11-23 12:43 | Progress Note ---
Assessment and Plan SIRS DKA TAMIKO Acute toxic and metabolic Encephalopathy Metabolic Acidosis H/O IgA defficiency medical Care non-compliance Polysubstance Abuse (Amphetamine abuse) Tobacco Use Disorder - continue IV insulin therapy per DKA protocol - continue volume resuscitation - PT/OT - Substance abuse counseling done at bedside - transition to long acting insulin per protocol - resume chronic home medications per attending once no longer NPO status - GI & VTE prophylaxis - empiric Levaquin montherapy; de-escalate based ion clinical and microbiologis data - continue other care per attending / other consultants ... re-evaluate in am & prn The high probability of a clinically significant, sudden or life-threatening deterioration of the [endocrine] system(s) required my full and direct attention, intervention and personal management. The aggregate critical care time was [32] minutes without overlap. Time includes spent on; [x] Data Review and interpretation [x] Patient assessment and monitoring of vital signs [x] Documentation [x] Medication orders and management Subjective Date of service: 11/23/18 Principal diagnosis: DKA Interval history: Patient is seen today for: SIRS; DKA; TAMIKO; Acute toxic and metabolic Encephalopathy; Metabolic Acidosis; H/O IgA defficiency; medical Care non- compliance Seen and examined at bedside; 24hour events reviewed; nursing and respiratory care staff consulted; no adverse overnight events reported to me; resting peacefully in bed; remains on IV insulin therapy; still complains of abdominal pain; denies acute chest pains or palpitations Objective Vital Signs - 12hr 11/23/18 11/23/18 11/23/18 00:50 01:00 01:10 Temperature Pulse Rate 116 H 114 H 116 H Pulse Rate [ From Monitor] Pulse Rate [ Right Dorsalis Pedis] Respiratory 19 12 18 Rate Respiratory Rate [Left Lower Abdomen] Blood Pressure 116/58 126/68 126/68 O2 Sat by Pulse 98 97 98 Oximetry 11/23/18 11/23/18 11/23/18 01:20 01:30 01:40 Temperature Pulse Rate 115 H 115 H 113 H Pulse Rate [ From Monitor] Pulse Rate [ Right Dorsalis Pedis] Respiratory 20 19 19 Rate Respiratory Rate [Left Lower Abdomen] Blood Pressure 126/68 126/68 126/68 O2 Sat by Pulse 98 98 98 Oximetry 11/23/18 11/23/18 11/23/18 01:50 02:00 02:10 Temperature Pulse Rate 114 H 110 H 124 H Pulse Rate [ 110 H From Monitor] Pulse Rate [ Right Dorsalis Pedis] Respiratory 16 16 22 Rate Respiratory Rate [Left Lower Abdomen] Blood Pressure 126/68 129/71 126/68 O2 Sat by Pulse 99 97 98 Oximetry 11/23/18 11/23/18 11/23/18 02:20 02:30 02:40 Temperature Pulse Rate 117 H 115 H 114 H Pulse Rate [ From Monitor] Pulse Rate [ Right Dorsalis Pedis] Respiratory 22 20 18 Rate Respiratory Rate [Left Lower Abdomen] Blood Pressure 126/68 126/68 126/68 O2 Sat by Pulse 99 98 99 Oximetry 11/23/18 11/23/18 11/23/18 02:50 03:00 03:10 Temperature Pulse Rate 108 H 106 H 107 H Pulse Rate [ From Monitor] Pulse Rate [ Right Dorsalis Pedis] Respiratory 17 13 18 Rate Respiratory Rate [Left Lower Abdomen] Blood Pressure 126/68 126/68 126/68 O2 Sat by Pulse 98 98 98 Oximetry 11/23/18 11/23/18 11/23/18 03:20 03:30 03:40 Temperature Pulse Rate 108 H 106 H 106 H Pulse Rate [ From Monitor] Pulse Rate [ Right Dorsalis Pedis] Respiratory 19 19 17 Rate Respiratory Rate [Left Lower Abdomen] Blood Pressure 126/68 126/68 126/68 O2 Sat by Pulse 97 97 98 Oximetry 11/23/18 11/23/18 11/23/18 03:50 04:00 04:10 Temperature 99.0 F Pulse Rate 103 H 112 H 103 H Pulse Rate [ 112 H From Monitor] Pulse Rate [ Right Dorsalis Pedis] Respiratory 17 18 14 Rate Respiratory Rate [Left Lower Abdomen] Blood Pressure 126/68 126/68 126/68 O2 Sat by Pulse 97 99 97 Oximetry 11/23/18 11/23/18 11/23/18 04:20 04:30 04:40 Temperature Pulse Rate 102 H 111 H 108 H Pulse Rate [ From Monitor] Pulse Rate [ Right Dorsalis Pedis] Respiratory 16 19 17 Rate Respiratory Rate [Left Lower Abdomen] Blood Pressure 126/68 126/68 126/68 O2 Sat by Pulse 98 97 99 Oximetry 11/23/18 11/23/18 11/23/18 04:50 05:00 05:10 Temperature Pulse Rate 105 H 105 H 101 H Pulse Rate [ From Monitor] Pulse Rate [ Right Dorsalis Pedis] Respiratory 15 17 15 Rate Respiratory Rate [Left Lower Abdomen] Blood Pressure 126/68 126/68 126/68 O2 Sat by Pulse 98 99 99 Oximetry 11/23/18 11/23/18 11/23/18 05:20 05:30 05:40 Temperature Pulse Rate 101 H 104 H 100 H Pulse Rate [ From Monitor] Pulse Rate [ Right Dorsalis Pedis] Respiratory 16 14 16 Rate Respiratory Rate [Left Lower Abdomen] Blood Pressure 126/68 108/85 108/85 O2 Sat by Pulse 99 98 98 Oximetry 11/23/18 11/23/18 11/23/18 05:50 06:00 06:10 Temperature Pulse Rate 100 H 98 H 105 H Pulse Rate [ 98 H From Monitor] Pulse Rate [ Right Dorsalis Pedis] Respiratory 16 16 16 Rate Respiratory Rate [Left Lower Abdomen] Blood Pressure 108/85 121/76 121/76 O2 Sat by Pulse 98 97 97 Oximetry 11/23/18 11/23/18 11/23/18 06:20 06:30 06:40 Temperature Pulse Rate 102 H 107 H 102 H Pulse Rate [ From Monitor] Pulse Rate [ Right Dorsalis Pedis] Respiratory 17 12 14 Rate Respiratory Rate [Left Lower Abdomen] Blood Pressure 121/76 121/76 121/76 O2 Sat by Pulse 98 98 100 Oximetry 11/23/18 11/23/18 11/23/18 06:50 07:00 07:10 Temperature Pulse Rate 102 H 100 H 101 H Pulse Rate [ From Monitor] Pulse Rate [ Right Dorsalis Pedis] Respiratory 18 14 17 Rate Respiratory Rate [Left Lower Abdomen] Blood Pressure 121/76 134/84 134/84 O2 Sat by Pulse 96 97 97 Oximetry 11/23/18 11/23/18 11/23/18 07:20 07:30 07:40 Temperature Pulse Rate 101 H 106 H 105 H Pulse Rate [ From Monitor] Pulse Rate [ Right Dorsalis Pedis] Respiratory 18 17 16 Rate Respiratory Rate [Left Lower Abdomen] Blood Pressure 134/84 134/84 134/84 O2 Sat by Pulse 97 98 99 Oximetry 11/23/18 11/23/18 11/23/18 07:50 08:00 08:10 Temperature Pulse Rate 105 H 96 H 95 H Pulse Rate [ From Monitor] Pulse Rate [ 107 H Right Dorsalis Pedis] Respiratory 18 18 14 Rate Respiratory Rate [Left Lower Abdomen] Blood Pressure 134/84 133/85 133/85 O2 Sat by Pulse 99 100 98 Oximetry 11/23/18 11/23/18 11/23/18 08:20 08:30 08:40 Temperature Pulse Rate 97 H 94 H 104 H Pulse Rate [ From Monitor] Pulse Rate [ Right Dorsalis Pedis] Respiratory 15 14 18 Rate Respiratory Rate [Left Lower Abdomen] Blood Pressure 133/85 133/85 O2 Sat by Pulse 98 98 98 Oximetry 11/23/18 11/23/18 11/23/18 08:50 09:00 09:10 Temperature Pulse Rate 107 H 103 H 103 H Pulse Rate [ From Monitor] Pulse Rate [ Right Dorsalis Pedis] Respiratory 19 16 17 Rate Respiratory Rate [Left Lower Abdomen] Blood Pressure 133/85 143/83 143/83 O2 Sat by Pulse 99 98 97 Oximetry 11/23/18 11/23/18 11/23/18 09:20 09:30 09:40 Temperature Pulse Rate 99 H 103 H 106 H Pulse Rate [ From Monitor] Pulse Rate [ Right Dorsalis Pedis] Respiratory 17 16 17 Rate Respiratory Rate [Left Lower Abdomen] Blood Pressure 143/83 143/83 143/83 O2 Sat by Pulse 98 98 98 Oximetry 11/23/18 11/23/18 11/23/18 09:50 10:00 10:10 Temperature Pulse Rate 105 H 112 H 99 H Pulse Rate [ From Monitor] Pulse Rate [ Right Dorsalis Pedis] Respiratory 17 13 15 Rate Respiratory 13 Rate [Left Lower Abdomen] Blood Pressure 143/83 136/92 136/92 O2 Sat by Pulse 96 98 98 Oximetry 11/23/18 11/23/18 11/23/18 10:20 10:30 10:40 Temperature Pulse Rate 95 H 101 H 100 H Pulse Rate [ From Monitor] Pulse Rate [ Right Dorsalis Pedis] Respiratory 17 16 16 Rate Respiratory Rate [Left Lower Abdomen] Blood Pressure 136/92 136/92 136/92 O2 Sat by Pulse 95 97 97 Oximetry 11/23/18 11/23/18 11/23/18 10:50 11:00 11:10 Temperature Pulse Rate 99 H 104 H 105 H Pulse Rate [ From Monitor] Pulse Rate [ Right Dorsalis Pedis] Respiratory 16 23 19 Rate Respiratory Rate [Left Lower Abdomen] Blood Pressure 136/92 127/75 127/75 O2 Sat by Pulse 98 97 98 Oximetry 11/23/18 11/23/18 11/23/18 11:20 11:30 11:40 Temperature Pulse Rate 110 H 104 H 100 H Pulse Rate [ From Monitor] Pulse Rate [ Right Dorsalis Pedis] Respiratory 17 18 17 Rate Respiratory Rate [Left Lower Abdomen] Blood Pressure 136/92 136/92 136/92 O2 Sat by Pulse 99 98 98 Oximetry 11/23/18 11/23/18 11/23/18 11:50 12:00 12:10 Temperature 99 F Pulse Rate 103 H 100 H 101 H Pulse Rate [ From Monitor] Pulse Rate [ 105 H Right Dorsalis Pedis] Respiratory 19 17 19 Rate Respiratory Rate [Left Lower Abdomen] Blood Pressure 127/75 127/69 127/69 O2 Sat by Pulse 98 98 99 Oximetry Constitutional: appears uncomfortable, other (young CF, normocephalic and atraumatic with normal respiratory effort at rest) Eyes: non-icteric ENT: oropharynx moist Neck: supple, no lymphadenopathy, no JVD Effort: normal Ascultation: Bilateral: clear, diminished breath sounds Percussion: Bilateral: not dull Cardiovascular: regular rate and rhythm Gastrointestinal: normoactive bowel sounds, soft, tender, non-distended Integumentary: other (excoriations to lower extremity) Extremities: no cyanosis, no edema, pink and warm, pulses normal Neurologic: normal mental status, non-focal exam, pupils equal and round, CN II- XII normal Psychiatric: anxious CBC and BMP: 11/24/18 04:41 11/24/18 04:41 Abnormal lab findings: Abnormal Labs 11/22/18 11/22/18 11/22/18 09:59 10:03 10:03 WBC 19.9 H Plt Count 521 H Lymph % (Auto) 7.1 L [place] # 0.9 H Seg Neutrophils % 88.2 H Seg Neutrophils # 17.5 H VBG pH Sodium Potassium Chloride 88.3 L Carbon Dioxide 6 L* BUN 28 H Creatinine 1.5 H Glucose 741 H* POC Glucose > 500 H Hemoglobin A1c Lactic Acid Calcium Phosphorus Direct Bilirubin ALT Alkaline Phosphatase LDL Cholesterol Direct Urine Creatinine 11/22/18 11/22/18 11/22/18 10:03 10:03 10:03 WBC Plt Count Lymph % (Auto) [place] # Seg Neutrophils % Seg Neutrophils # VBG pH 7.158 L* Sodium Potassium Chloride Carbon Dioxide BUN Creatinine Glucose POC Glucose Hemoglobin A1c 12.8 H Lactic Acid Calcium Phosphorus 6.80 H Direct Bilirubin 0.3 H ALT 65 H Alkaline Phosphatase 209 H LDL Cholesterol Direct 44 L Urine Creatinine 11/22/18 11/22/18 11/22/18 11:43 12:51 12:54 WBC Plt Count Lymph % (Auto) [place] # Seg Neutrophils % Seg Neutrophils # VBG pH Sodium 146 H Potassium 3.4 L D Chloride Carbon Dioxide 10 L BUN 23 H Creatinine 1.3 H Glucose 292 H POC Glucose 411 H 278 H Hemoglobin A1c Lactic Acid Calcium Phosphorus Direct Bilirubin ALT Alkaline Phosphatase LDL Cholesterol Direct Urine Creatinine 11/22/18 11/22/18 11/22/18 13:42 13:55 14:10 WBC Plt Count Lymph % (Auto) [place] # Seg Neutrophils % Seg Neutrophils # VBG pH Sodium Potassium Chloride Carbon Dioxide BUN Creatinine Glucose POC Glucose 252 H Hemoglobin A1c Lactic Acid 2.30 H* Calcium Phosphorus Direct Bilirubin ALT Alkaline Phosphatase LDL Cholesterol Direct Urine Creatinine 32.0 H 11/22/18 11/22/18 11/22/18 15:11 15:44 16:05 WBC Plt Count Lymph % (Auto) [place] # Seg Neutrophils % Seg Neutrophils # VBG pH Sodium 149 H Potassium Chloride 108.4 H Carbon Dioxide 20 L D BUN 19 H Creatinine Glucose 158 H POC Glucose 190 H 167 H Hemoglobin A1c Lactic Acid Calcium 7.8 L Phosphorus Direct Bilirubin ALT Alkaline Phosphatase LDL Cholesterol Direct Urine Creatinine 11/22/18 11/22/18 11/22/18 17:09 18:15 19:14 WBC Plt Count Lymph % (Auto) [place] # Seg Neutrophils % Seg Neutrophils # VBG pH Sodium Potassium Chloride Carbon Dioxide BUN Creatinine Glucose POC Glucose 127 H 128 H 135 H Hemoglobin A1c Lactic Acid Calcium Phosphorus Direct Bilirubin ALT Alkaline Phosphatase LDL Cholesterol Direct Urine Creatinine 11/22/18 11/22/18 11/22/18 19:38 20:00 21:10 WBC Plt Count Lymph % (Auto) [place] # Seg Neutrophils % Seg Neutrophils # VBG pH Sodium 146 H Potassium Chloride 108.4 H Carbon Dioxide 19 L BUN Creatinine Glucose 148 H POC Glucose 151 H 206 H Hemoglobin A1c Lactic Acid Calcium 7.8 L Phosphorus Direct Bilirubin ALT Alkaline Phosphatase LDL Cholesterol Direct Urine Creatinine 11/22/18 11/22/18 11/22/18 22:05 23:14 23:53 WBC Plt Count Lymph % (Auto) [place] # Seg Neutrophils % Seg Neutrophils # VBG pH Sodium Potassium Chloride Carbon Dioxide BUN Creatinine Glucose POC Glucose 201 H 161 H 138 H Hemoglobin A1c Lactic Acid Calcium Phosphorus Direct Bilirubin ALT Alkaline Phosphatase LDL Cholesterol Direct Urine Creatinine 11/23/18 11/23/18 11/23/18 01:03 02:00 02:52 WBC Plt Count Lymph % (Auto) [place] # Seg Neutrophils % Seg Neutrophils # VBG pH Sodium Potassium 3.3 L Chloride 108.7 H Carbon Dioxide BUN Creatinine Glucose 155 H POC Glucose 140 H 124 H Hemoglobin A1c Lactic Acid Calcium 8.0 L Phosphorus Direct Bilirubin ALT Alkaline Phosphatase LDL Cholesterol Direct Urine Creatinine 11/23/18 11/23/18 11/23/18 03:12 05:05 06:19 WBC Plt Count Lymph % (Auto) [place] # Seg Neutrophils % Seg Neutrophils # VBG pH Sodium Potassium Chloride Carbon Dioxide BUN Creatinine Glucose POC Glucose 133 H 145 H 110 H Hemoglobin A1c Lactic Acid Calcium Phosphorus Direct Bilirubin ALT Alkaline Phosphatase LDL Cholesterol Direct Urine Creatinine 11/23/18 11/23/18 11/23/18 07:05 08:14 09:11 WBC Plt Count Lymph % (Auto) [place] # Seg Neutrophils % Seg Neutrophils # VBG pH Sodium Potassium Chloride Carbon Dioxide BUN Creatinine Glucose POC Glucose 145 H 126 H 116 H Hemoglobin A1c Lactic Acid Calcium Phosphorus Direct Bilirubin ALT Alkaline Phosphatase LDL Cholesterol Direct Urine Creatinine 11/23/18 11/23/18 10:04 11:37 WBC Plt Count Lymph % (Auto) [place] # Seg Neutrophils % Seg Neutrophils # VBG pH Sodium Potassium Chloride Carbon Dioxide BUN Creatinine Glucose POC Glucose 145 H 116 H Hemoglobin A1c Lactic Acid Calcium Phosphorus Direct Bilirubin ALT Alkaline Phosphatase LDL Cholesterol Direct Urine Creatinine Chest x-ray: image reviewed (no focal infiltrate) Allied health notes reviewed: nursing
[2018-11-23] MEDS: REGLAN IV PRN (13:07)
[2018-11-23 13:56] LABS: BUN/Creatinine Ratio 13; Blood Urea Nitrogen 8 mg/dL (7-17); Calcium 8.3 mg/dL (8.4-10.2); Hemolysis Index 13
[2018-11-23] MEDS ORDERED: LEVAQUIN 750MG/150ML 750 MG/150 ML BAG IV SCH (14:00)
[2018-11-23] MEDS: PERCOCET 5/325 PO PRN (18:37)
[2018-11-23] MEDS: PAMELOR PO SCH (22:50)
[2018-11-23] MEDS: ZOVIRAX PO SCH (22:50)
[2018-11-24] MEDS: NACL 0.45% 1000 ML 1,000 ML IV SCH ×2 (02:58→17:58)
[2018-11-24] MEDS: PERCOCET 5/325 PO PRN ×2 (02:58→14:07)
[2018-11-24 05:47] LABS: Basophils % (Auto) 0.3 % (0.0-1.8); Eosinophils % (Auto) 0.4 % (0.0-4.3); Hematocrit 36.3 % (30.3-42.9); Hemoglobin 11.7 gm/dl (10.1-14.3); Lymphocytes # (Auto) 1.4 K/mm3 (1.2-5.4); Lymphocytes % (Auto) 12.3 % (13.4-35.0); Mean Corpuscular HGB Conc 32 % (30-34); Mean Corpuscular Volume 92 fl (79-97); Monocytes # (Auto) 0.7 K/mm3 (0.0-0.8); Monocytes % (Auto) 5.9 % (0.0-7.3); Platelet Count 362 K/mm3 (140-440); Red Blood Count 3.95 M/mm3 (3.65-5.03); Red Cell Distribution Width 13.9 % (13.2-15.2)
[2018-11-24 06:09] LABS: BUN/Creatinine Ratio 15; Blood Urea Nitrogen 9 mg/dL (7-17); Calcium 8.5 mg/dL (8.4-10.2); Hemolysis Index 4
[2018-11-24] MEDS ORDERED: LANTUS SUB-Q SCH (08:00)
[2018-11-24] MEDS ORDERED: LANTUS SUB-Q ONE ×2 (08:38→10:00)
[2018-11-24] MEDS: HumaLOG SUB-Q SCH ×7 (08:46→22:20)
[2018-11-24] MEDS: KEPPRA PO SCH ×2 (10:02→22:00)
[2018-11-24] MEDS: HABITROL TD SCH (10:02)
[2018-11-24] MEDS: ZESTRIL PO SCH (10:02)
[2018-11-24] MEDS: LEVAQUIN PO SCH (10:02)
[2018-11-24] MEDS: celeXA PO SCH (10:03)
[2018-11-24] MEDS: ZOVIRAX PO SCH ×2 (10:03→22:00)
[2018-11-24] MEDS: SODIUM CHLORIDE FLUSH SYRINGE 10 ML IV SCH ×2 (10:03→22:02)
[2018-11-24] MEDS: PEPCID PO SCH (14:07)
[2018-11-24] MEDS: LOVENOX SUB-Q SCH (14:07)
--- NOTE | 2018-11-24 14:39 | Progress Note ---
Assessment and Plan Assessment and plan: 28F who presents with ams, brought in by family for vomiting x2 days, she was unable to give hx at time of admission due to AMS, per family she was not taking her insulin pmh; hypertension, diabetes, seizure disorder, psychosis, nicotine dependence, IgA deficiency, medication nonadherence, active use of amphetamines UDS post for meth UA neg for pyuria CXR no acute findings Diagnosis -Amphetamine abuse -DKA -uncontrolled DM -Acute toxic and metabolic encephalopathy -Seizure disorder -HTN -TAMIKO- ruled out -Hypokalemia -Dehydration -SIRS, without organ dysfunction; no evidence of sepsis intractable n/v non adherence Plan -counseled about meth cessation cont insulins -K repleted -mentation improving a1c 12.8 antiemetics as needed, IV fluids dispo; home when tolerating PO, and glucose better controlled, anticipate dc in 1-2 days History Interval history: Review of systems Constitutional: No fevers, no malaise, no joint pains CVS: No chest pain, no orthopnea, no dyspnea on exertion, no pedal edema GI: No abdominal pain, no diarrhea, no vomiting, no constipation Respiratory: No shortness of breath, no wheezing, no coughing Hospitalist Physical - Physical exam Narrative exam: General.: Appears well, no distress, nontoxic HEENT: Moist mucous membranes, extraocular muscles intact, no lymphadenopathy Neck: supple Cardiac: S1-S2 heard Lungs: clear to auscultation bilaterally Abdomen: soft , nontender, nondistended, bowel sounds positive Extremities: no edema clubbing or cyanosis Skin: no rash or lesions Neurologic: no gross focal deficits Psych: calm, and cooperative - Constitutional Vitals: Temp Pulse Resp BP Pulse Ox 98.8 F 101 H 16 134/88 99 11/24/18 12:00 11/24/18 14:30 11/24/18 14:30 11/24/18 14:30 11/24/18 14:30 General appearance: Present: severe distress, cachectic, disheveled Results - Labs CBC & Chem 7: 11/24/18 04:41 11/24/18 04:41 Labs: Laboratory Last Values WBC 11.1 K/mm3 (4.5-11.0) H 11/24/18 04:41 RBC 3.95 M/mm3 (3.65-5.03) 11/24/18 04:41 Hgb 11.7 gm/dl (10.1-14.3) 11/24/18 04:41 Hct 36.3 % (30.3-42.9) 11/24/18 04:41 MCV 92 fl (79-97) 11/24/18 04:41 MCH 30 pg (28-32) 11/24/18 04:41 MCHC 32 % (30-34) 11/24/18 04:41 RDW 13.9 % (13.2-15.2) 11/24/18 04:41 Plt Count 362 K/mm3 (140-440) 11/24/18 04:41 Lymph % (Auto) 12.3 % (13.4-35.0) L 11/24/18 04:41 [place] % (Auto) 5.9 % (0.0-7.3) 11/24/18 04:41 Eos % (Auto) 0.4 % (0.0-4.3) 11/24/18 04:41 Baso % (Auto) 0.3 % (0.0-1.8) 11/24/18 04:41 Lymph # 1.4 K/mm3 (1.2-5.4) 11/24/18 04:41 [place] # 0.7 K/mm3 (0.0-0.8) 11/24/18 04:41 Eos # 0.0 K/mm3 (0.0-0.4) 11/24/18 04:41 Baso # 0.0 K/mm3 (0.0-0.1) 11/24/18 04:41 Seg Neutrophils % 81.1 % (40.0-70.0) H 11/24/18 04:41 Seg Neutrophils # 9.0 K/mm3 (1.8-7.7) H 11/24/18 04:41 VBG pH 7.158 (7.320-7.420) L* 11/22/18 10:03 Sodium 138 mmol/L (137-145) D 11/24/18 04:41 Potassium 4.3 mmol/L (3.6-5.0) D 11/24/18 04:41 Chloride 100.6 mmol/L (98-107) 11/24/18 04:41 Carbon Dioxide 11 mmol/L (22-30) L D 11/24/18 04:41 Anion Gap 31 mmol/L 11/24/18 04:41 BUN 9 mg/dL (7-17) 11/24/18 04:41 Creatinine 0.6 mg/dL (0.7-1.2) L 11/24/18 04:41 Estimated GFR > 60 ml/min 11/24/18 04:41 BUN/Creatinine Ratio 15 % 11/24/18 04:41 Glucose 466 mg/dL (65-100) H 11/24/18 04:41 POC Glucose 120 (70-105) H 11/24/18 11:24 Hemoglobin A1c 12.8 % (4-6) H 11/22/18 10:03 Lactic Acid 0.70 mmol/L (0.7-2.0) 11/22/18 19:38 Calcium 8.5 mg/dL (8.4-10.2) 11/24/18 04:41 Phosphorus 6.80 mg/dL (2.5-4.5) H 11/22/18 10:03 Magnesium 2.20 mg/dL (1.7-2.3) 11/22/18 10:03 Total Bilirubin 0.90 mg/dL (0.1-1.2) 11/22/18 10:03 Direct Bilirubin 0.3 mg/dL (0-0.2) H 11/22/18 10:03 Indirect Bilirubin 0.6 mg/dL 11/22/18 10:03 AST 24 units/L (5-40) 11/22/18 10:03 ALT 65 units/L (7-56) H 11/22/18 10:03 Alkaline Phosphatase 209 units/L (35-129) H 11/22/18 10:03 Total Protein 7.7 g/dL (6.3-8.2) 11/22/18 10:03 Albumin 4.2 g/dL (3.9-5) 11/22/18 10:03 Albumin/Globulin Ratio 1.2 % 11/22/18 10:03 Triglycerides 147 mg/dL (2-149) 11/22/18 10:03 Cholesterol 111 mg/dL (50-199) 11/22/18 10:03 LDL Cholesterol Direct 44 mg/dL (50-130) L 11/22/18 10:03 HDL Cholesterol 48 mg/dL (40-59) 11/22/18 10:03 Cholesterol/HDL Ratio 2.31 % 11/22/18 10:03 HCG, Qual Negative (Negative) 11/22/18 10:58 Urine Color Straw (Yellow) 11/22/18 13:55 Urine Turbidity Clear (Clear) 11/22/18 13:55 Urine pH 5.0 (5.0-7.0) 11/22/18 13:55 Ur Specific [place] 1.015 (1.003-1.030) 11/22/18 13:55 Urine Protein <15 mg/dl mg/dL (Negative) 11/22/18 13:55 Urine Glucose (UA) >=500 mg/dL (Negative) 11/22/18 13:55 Urine Ketones 80 mg/dL (Negative) 11/22/18 13:55 Urine Blood Sm (Negative) 11/22/18 13:55 Urine Nitrite Neg (Negative) 11/22/18 13:55 Urine Bilirubin Neg (Negative) 11/22/18 13:55 Urine Urobilinogen < 2.0 mg/dL (<2.0) 11/22/18 13:55 Ur Leukocyte Esterase Neg (Negative) 11/22/18 13:55 Urine WBC (Auto) 2.0 /HPF (0.0-6.0) 11/22/18 13:55 Urine RBC (Auto) 1.0 /HPF (0.0-6.0) 11/22/18 13:55 U Epithel Cells (Auto) 1.0 /HPF (0-13.0) 11/22/18 13:55 Urine Creatinine 32.0 mg/dL (0.1-20.0) H 11/22/18 13:55 Urine Microalbumin 1.3 mg/dL (0.1-34.0) 11/22/18 13:55 Microalb/Creat Ratio 40.6 ug/mg 11/22/18 13:55 Urine Opiates Screen Presumptive negative 11/22/18 13:55 Urine Methadone Screen Presumptive negative 11/22/18 13:55 Ur Barbiturates Screen Presumptive negative 11/22/18 13:55 Ur Phencyclidine Scrn Presumptive negative 11/22/18 13:55 Ur Amphetamines Screen Presumptive positive 11/22/18 13:55 U Benzodiazepines Scrn Presumptive negative 01/26/19 13:55 Urine Cocaine Screen Presumptive negative 11/22/18 13:55 U Marijuana (THC) Screen Presumptive negative 11/22/18 13:55 Drugs of Abuse Note Disclamer 11/22/18 13:55 Nutrition/Malnutrition Assess - Dietary Evaluation Nutrition/Malnutrition Findings: Nutrition Notes Start: 11/23/18 14:41 Freq: Status: Active Protocol: Document 11/24/18 13:52 CARLOS (Rec: 11/24/18 13:54 CARLOS [email or web address]) Nutrition Notes Initial or Follow up Brief Note Current Diet Consistent CHO Subjective/Other Information Pt sleeping soundly at time of visit (12:16). Nutrition Intervention Follow-Up By: 11/25/18 Additional Comments F/U: DM diet education needs ( A1c, Food sources of CHO)
--- NOTE | 2018-11-24 16:11 | Progress Note ---
Assessment and Plan SIRS DKA TAMIKO Acute toxic and metabolic Encephalopathy Metabolic Acidosis H/O IgA defficiency medical Care non-compliance Polysubstance Abuse (Amphetamine abuse) Tobacco Use Disorder - continue IV insulin therapy per DKA protocol - continue volume resuscitation - PT/OT - Substance abuse counseling done at bedside - transition to long acting insulin per protocol - resume chronic home medications per attending once no longer NPO status - GI & VTE prophylaxis - empiric Levaquin montherapy; de-escalate based ion clinical and microbiologis data - continue other care per attending / other consultants ... re-evaluate in am & prn The high probability of a clinically significant, sudden or life-threatening deterioration of the [endocrine] system(s) required my full and direct attention, intervention and personal management. The aggregate critical care time was [32] minutes without overlap. Time includes spent on; [x] Data Review and interpretation [x] Patient assessment and monitoring of vital signs [x] Documentation [x] Medication orders and management Subjective Date of service: 11/24/18 Principal diagnosis: SIRS; DKA; TAMIKO; Acute Encephalopathy; Metabolic Acidosis; H/O IgA deff Interval history: Patient is seen today for: SIRS; DKA; TAMIKO; Acute toxic and metabolic Encephalopathy; Metabolic Acidosis; H/O IgA defficiency; medical Care non- compliance Seen and examined at bedside; 24hour events reviewed; nursing and respiratory care staff consulted; no adverse overnight events reported to me; resting peacefully in bed; Objective Vital Signs - 12hr 11/24/18 11/24/18 11/24/18 04:20 04:30 04:40 Temperature Pulse Rate 127 H 126 H 127 H Pulse Rate [ Right Dorsalis Pedis] Respiratory 19 22 27 H Rate Blood Pressure 126/61 126/61 126/61 O2 Sat by Pulse 99 99 99 Oximetry 11/24/18 11/24/18 11/24/18 04:50 05:00 05:10 Temperature Pulse Rate 128 H 130 H 131 H Pulse Rate [ Right Dorsalis Pedis] Respiratory 23 25 H 25 H Rate Blood Pressure 112/57 113/50 113/50 O2 Sat by Pulse 100 99 99 Oximetry 11/24/18 11/24/18 11/24/18 05:20 05:30 05:40 Temperature Pulse Rate 132 H 134 H 130 H Pulse Rate [ Right Dorsalis Pedis] Respiratory 25 H 19 25 H Rate Blood Pressure 113/50 113/50 113/50 O2 Sat by Pulse 99 100 99 Oximetry 11/24/18 11/24/18 11/24/18 05:50 06:00 06:10 Temperature Pulse Rate 131 H 133 H 129 H Pulse Rate [ Right Dorsalis Pedis] Respiratory 24 19 23 Rate Blood Pressure 113/50 104/48 104/48 O2 Sat by Pulse 99 100 99 Oximetry 11/24/18 11/24/18 11/24/18 06:20 06:30 06:40 Temperature Pulse Rate 129 H 126 H 122 H Pulse Rate [ Right Dorsalis Pedis] Respiratory 26 H 25 H 24 Rate Blood Pressure 104/48 104/48 104/48 O2 Sat by Pulse 99 100 100 Oximetry 11/24/18 11/24/18 11/24/18 06:50 07:00 07:10 Temperature Pulse Rate 130 H 122 H 123 H Pulse Rate [ Right Dorsalis Pedis] Respiratory 21 23 20 Rate Blood Pressure 104/48 104/48 128/74 O2 Sat by Pulse 99 100 100 Oximetry 11/24/18 11/24/18 11/24/18 07:20 07:30 07:40 Temperature Pulse Rate 122 H 121 H 120 H Pulse Rate [ Right Dorsalis Pedis] Respiratory 23 22 23 Rate Blood Pressure 104/48 104/48 104/48 O2 Sat by Pulse 100 99 100 Oximetry 11/24/18 11/24/18 11/24/18 07:50 08:00 08:10 Temperature 98.8 F Pulse Rate 119 H 120 H 116 H Pulse Rate [ 120 H Right Dorsalis Pedis] Respiratory 21 16 20 Rate Blood Pressure 128/74 132/81 132/81 O2 Sat by Pulse 99 100 99 Oximetry 11/24/18 11/24/18 11/24/18 08:20 08:30 08:40 Temperature Pulse Rate 117 H 114 H 118 H Pulse Rate [ Right Dorsalis Pedis] Respiratory 19 17 21 Rate Blood Pressure 132/81 132/81 132/81 O2 Sat by Pulse 99 98 99 Oximetry 11/24/18 11/24/18 11/24/18 08:50 09:00 09:10 Temperature Pulse Rate 117 H 114 H 115 H Pulse Rate [ Right Dorsalis Pedis] Respiratory 12 17 10 L Rate Blood Pressure 132/81 117/70 117/70 O2 Sat by Pulse 99 98 99 Oximetry 11/24/18 11/24/18 11/24/18 09:20 09:30 09:40 Temperature Pulse Rate 113 H 113 H 113 H Pulse Rate [ Right Dorsalis Pedis] Respiratory 22 21 23 Rate Blood Pressure 117/70 117/70 117/70 O2 Sat by Pulse 99 99 99 Oximetry 11/24/18 11/24/18 11/24/18 09:50 10:00 10:02 Temperature Pulse Rate 112 H 120 H 110 H Pulse Rate [ Right Dorsalis Pedis] Respiratory 22 19 Rate Blood Pressure 117/70 127/72 127/72 O2 Sat by Pulse 99 98 Oximetry 11/24/18 11/24/18 11/24/18 10:10 10:20 10:30 Temperature Pulse Rate 118 H 119 H 108 H Pulse Rate [ Right Dorsalis Pedis] Respiratory 23 14 21 Rate Blood Pressure 127/72 127/72 127/72 O2 Sat by Pulse 100 99 98 Oximetry 11/24/18 11/24/18 11/24/18 10:40 10:50 11:00 Temperature Pulse Rate 109 H 109 H 111 H Pulse Rate [ Right Dorsalis Pedis] Respiratory 20 19 19 Rate Blood Pressure 127/72 127/72 123/66 O2 Sat by Pulse 97 98 97 Oximetry 11/24/18 11/24/18 11/24/18 11:10 11:20 11:30 Temperature Pulse Rate 112 H 108 H 116 H Pulse Rate [ Right Dorsalis Pedis] Respiratory 19 17 14 Rate Blood Pressure 123/66 123/66 123/66 O2 Sat by Pulse 98 98 99 Oximetry 11/24/18 11/24/18 11/24/18 11:40 11:50 12:00 Temperature 98.8 F Pulse Rate 116 H 110 H 110 H Pulse Rate [ 110 H Right Dorsalis Pedis] Respiratory 17 14 18 Rate Blood Pressure 123/66 123/66 138/77 O2 Sat by Pulse 99 98 98 Oximetry 11/24/18 11/24/18 11/24/18 12:10 12:20 12:30 Temperature Pulse Rate 109 H 108 H 105 H Pulse Rate [ Right Dorsalis Pedis] Respiratory 20 20 18 Rate Blood Pressure 138/77 138/77 138/77 O2 Sat by Pulse 98 98 98 Oximetry 11/24/18 11/24/18 11/24/18 12:40 12:50 13:00 Temperature Pulse Rate 106 H 108 H 111 H Pulse Rate [ Right Dorsalis Pedis] Respiratory 19 19 11 L Rate Blood Pressure 138/77 138/77 129/74 O2 Sat by Pulse 98 99 98 Oximetry 11/24/18 11/24/18 11/24/18 13:10 13:20 13:30 Temperature Pulse Rate 105 H 113 H 120 H Pulse Rate [ Right Dorsalis Pedis] Respiratory 18 20 19 Rate Blood Pressure 129/74 129/74 129/74 O2 Sat by Pulse 99 99 99 Oximetry 11/24/18 11/24/18 11/24/18 13:40 13:50 14:00 Temperature Pulse Rate 103 H 101 H 100 H Pulse Rate [ Right Dorsalis Pedis] Respiratory 18 16 15 Rate Blood Pressure 129/74 129/74 134/88 O2 Sat by Pulse 99 99 99 Oximetry 11/24/18 11/24/18 11/24/18 14:10 14:20 14:30 Temperature Pulse Rate 108 H 108 H 101 H Pulse Rate [ Right Dorsalis Pedis] Respiratory 16 15 16 Rate Blood Pressure 134/88 134/88 134/88 O2 Sat by Pulse 100 99 99 Oximetry 11/24/18 14:55 Temperature 98.8 F Pulse Rate Pulse Rate [ Right Dorsalis Pedis] Respiratory Rate Blood Pressure O2 Sat by Pulse Oximetry Constitutional: appears uncomfortable, other (young CF, normocephalic and atraumatic with normal respiratory effort at rest) Eyes: non-icteric ENT: oropharynx moist Neck: supple, no lymphadenopathy, no JVD Effort: normal Ascultation: Bilateral: clear, diminished breath sounds Percussion: Bilateral: not dull Cardiovascular: regular rate and rhythm Gastrointestinal: normoactive bowel sounds, soft, tender, non-distended Integumentary: other (excoriations to lower extremity) Extremities: no cyanosis, no edema, pink and warm, pulses normal Neurologic: normal mental status, non-focal exam, pupils equal and round, CN II- XII normal Psychiatric: anxious CBC and BMP: 11/24/18 04:41 11/24/18 04:41 Abnormal lab findings: Abnormal Labs 11/22/18 11/22/18 11/22/18 09:59 10:03 10:03 WBC 19.9 H Plt Count 521 H Lymph % (Auto) 7.1 L [place] # 0.9 H Seg Neutrophils % 88.2 H Seg Neutrophils # 17.5 H VBG pH Sodium Potassium Chloride 88.3 L Carbon Dioxide 6 L* BUN 28 H Creatinine 1.5 H Glucose 741 H* POC Glucose > 500 H Hemoglobin A1c Lactic Acid Calcium Phosphorus Direct Bilirubin ALT Alkaline Phosphatase LDL Cholesterol Direct Urine Creatinine 11/22/18 11/22/18 11/22/18 10:03 10:03 10:03 WBC Plt Count Lymph % (Auto) [place] # Seg Neutrophils % Seg Neutrophils # VBG pH 7.158 L* Sodium Potassium Chloride Carbon Dioxide BUN Creatinine Glucose POC Glucose Hemoglobin A1c 12.8 H Lactic Acid Calcium Phosphorus 6.80 H Direct Bilirubin 0.3 H ALT 65 H Alkaline Phosphatase 209 H LDL Cholesterol Direct 44 L Urine Creatinine 11/22/18 11/22/18 11/22/18 11:43 12:51 12:54 WBC Plt Count Lymph % (Auto) [place] # Seg Neutrophils % Seg Neutrophils # VBG pH Sodium 146 H Potassium 3.4 L D Chloride Carbon Dioxide 10 L BUN 23 H Creatinine 1.3 H Glucose 292 H POC Glucose 411 H 278 H Hemoglobin A1c Lactic Acid Calcium Phosphorus Direct Bilirubin ALT Alkaline Phosphatase LDL Cholesterol Direct Urine Creatinine 11/22/18 11/22/18 11/22/18 13:42 13:55 14:10 WBC Plt Count Lymph % (Auto) [place] # Seg Neutrophils % Seg Neutrophils # VBG pH Sodium Potassium Chloride Carbon Dioxide BUN Creatinine Glucose POC Glucose 252 H Hemoglobin A1c Lactic Acid 2.30 H* Calcium Phosphorus Direct Bilirubin ALT Alkaline Phosphatase LDL Cholesterol Direct Urine Creatinine 32.0 H 11/22/18 11/22/18 11/22/18 15:11 15:44 16:05 WBC Plt Count Lymph % (Auto) [place] # Seg Neutrophils % Seg Neutrophils # VBG pH Sodium 149 H Potassium Chloride 108.4 H Carbon Dioxide 20 L D BUN 19 H Creatinine Glucose 158 H POC Glucose 190 H 167 H Hemoglobin A1c Lactic Acid Calcium 7.8 L Phosphorus Direct Bilirubin ALT Alkaline Phosphatase LDL Cholesterol Direct Urine Creatinine 11/22/18 11/22/18 11/22/18 17:09 18:15 19:14 WBC Plt Count Lymph % (Auto) [place] # Seg Neutrophils % Seg Neutrophils # VBG pH Sodium Potassium Chloride Carbon Dioxide BUN Creatinine Glucose POC Glucose 127 H 128 H 135 H Hemoglobin A1c Lactic Acid Calcium Phosphorus Direct Bilirubin ALT Alkaline Phosphatase LDL Cholesterol Direct Urine Creatinine 01/11/22/18 11/22/18 19:38 20:00 21:10 WBC Plt Count Lymph % (Auto) [place] # Seg Neutrophils % Seg Neutrophils # VBG pH Sodium 146 H Potassium Chloride 108.4 H Carbon Dioxide 19 L BUN Creatinine Glucose 148 H POC Glucose 151 H 206 H Hemoglobin A1c Lactic Acid Calcium 7.8 L Phosphorus Direct Bilirubin ALT Alkaline Phosphatase LDL Cholesterol Direct Urine Creatinine 11/22/18 11/22/18 11/22/18 22:05 23:14 23:53 WBC Plt Count Lymph % (Auto) [place] # Seg Neutrophils % Seg Neutrophils # VBG pH Sodium Potassium Chloride Carbon Dioxide BUN Creatinine Glucose POC Glucose 201 H 161 H 138 H Hemoglobin A1c Lactic Acid Calcium Phosphorus Direct Bilirubin ALT Alkaline Phosphatase LDL Cholesterol Direct Urine Creatinine 11/23/18 11/23/18 11/23/18 01:03 02:00 02:52 WBC Plt Count Lymph % (Auto) [place] # Seg Neutrophils % Seg Neutrophils # VBG pH Sodium Potassium 3.3 L Chloride 108.7 H Carbon Dioxide BUN Creatinine Glucose 155 H POC Glucose 140 H 124 H Hemoglobin A1c Lactic Acid Calcium 8.0 L Phosphorus Direct Bilirubin ALT Alkaline Phosphatase LDL Cholesterol Direct Urine Creatinine 11/23/18 11/23/18 11/23/18 03:12 05:05 06:19 WBC Plt Count Lymph % (Auto) [place] # Seg Neutrophils % Seg Neutrophils # VBG pH Sodium Potassium Chloride Carbon Dioxide BUN Creatinine Glucose POC Glucose 133 H 145 H 110 H Hemoglobin A1c Lactic Acid Calcium Phosphorus Direct Bilirubin ALT Alkaline Phosphatase LDL Cholesterol Direct Urine Creatinine 11/23/18 11/23/18 11/23/18 07:05 08:14 09:11 WBC Plt Count Lymph % (Auto) [place] # Seg Neutrophils % Seg Neutrophils # VBG pH Sodium Potassium Chloride Carbon Dioxide BUN Creatinine Glucose POC Glucose 145 H 126 H 116 H Hemoglobin A1c Lactic Acid Calcium Phosphorus Direct Bilirubin ALT Alkaline Phosphatase LDL Cholesterol Direct Urine Creatinine 11/23/18 11/23/18 11/23/18 10:04 11:37 13:08 WBC Plt Count Lymph % (Auto) [place] # Seg Neutrophils % Seg Neutrophils # VBG pH Sodium 146 H Potassium 3.2 L Chloride 110.7 H Carbon Dioxide BUN Creatinine 0.6 L Glucose POC Glucose 145 H 116 H Hemoglobin A1c Lactic Acid Calcium 8.3 L Phosphorus Direct Bilirubin ALT Alkaline Phosphatase LDL Cholesterol Direct Urine Creatinine 11/23/18 11/23/18 11/24/18 16:59 21:19 04:41 WBC 11.1 H Plt Count Lymph % (Auto) 12.3 L [place] # Seg Neutrophils % 81.1 H Seg Neutrophils # 9.0 H VBG pH Sodium Potassium Chloride Carbon Dioxide BUN Creatinine Glucose POC Glucose 209 H 229 H Hemoglobin A1c Lactic Acid Calcium Phosphorus Direct Bilirubin ALT Alkaline Phosphatase LDL Cholesterol Direct Urine Creatinine 11/24/18 11/24/18 11/24/18 04:41 05:34 08:10 WBC Plt Count Lymph % (Auto) [place] # Seg Neutrophils % Seg Neutrophils # VBG pH Sodium Potassium Chloride Carbon Dioxide 11 L D BUN Creatinine 0.6 L Glucose 466 H POC Glucose 386 H 275 H Hemoglobin A1c Lactic Acid Calcium Phosphorus Direct Bilirubin ALT Alkaline Phosphatase LDL Cholesterol Direct Urine Creatinine 11/24/18 11:24 WBC Plt Count Lymph % (Auto) [place] # Seg Neutrophils % Seg Neutrophils # VBG pH Sodium Potassium Chloride Carbon Dioxide BUN Creatinine Glucose POC Glucose 120 H Hemoglobin A1c Lactic Acid Calcium Phosphorus Direct Bilirubin ALT Alkaline Phosphatase LDL Cholesterol Direct Urine Creatinine Allied health notes reviewed: nursing
[2018-11-24] MEDS: ANTIBIOTIC OINT TP SCH ×2 (16:14→22:00)
[2018-11-24] MEDS: PAMELOR PO SCH (22:00)
[2018-11-24] MEDS: REGLAN IV PRN (22:19)
--- NOTE | 2018-11-25 06:18 | Consultation ---
PULMONARY CRITICAL CARE CONSULTATION NOTE CONSULTING PHYSICIAN: Lacho Santacruz MD REASON FOR CONSULTATION: Diabetic ketoacidosis. CHIEF COMPLAINT AND HISTORY OF PRESENT ILLNESS: The patient is a 28-year-old female with past medical history significant amongst other things for a diagnosis of diabetes as well as psychosis, medication noncompliance, polysubstance abuse, came into the Emergency Room, confused, unable to give a history. According to the family, she has had nausea and multiple episodes of vomiting for a couple of days. She had not been taking her medications. In the Emergency Room, she was found to be in diabetic ketoacidosis. She was septic. She had an acute kidney injury. She was admitted to the Intensive Care Unit for management. When I stopped by to see her, she was resting in bed. Still complaining of abdominal pain. No more vomiting. Denied chest pains. Not a very cooperative patient in terms of history taking. Denied hemoptysis. Denied fevers or chills. Denied sick contacts. Denied any new lumps, bumps, or swellings on her body. Denied any source of infection. Denied any dysuria or hematuria. This really is as much of the history of presentation. PAST MEDICAL HISTORY: Diabetes, hyperlipidemia, seizure disorder, IgA deficiency, medication noncompliance, mitral valve prolapse, hypertension. PAST SURGICAL HISTORY: Cholecystectomy and tonsillectomy. MEDICATIONS: She was on at the time I stopped by to see were reviewed. They include the following: Insulin drip was going at IV 8 units per hour, Levaquin 750 mg IV daily. ALLERGIES: CLARITHROMYCIN, ERYTHROMYCIN, KETOROLAC, . Nature of these allergies is unknown. DIET: Well-built lady, denies acute weight loss or gain in the preceding few weeks to months. SOCIAL HISTORY: Lives in the community. She has 5+ pack year tobacco smoking history. There is a history of polysubstance abuse. FAMILY HISTORY: Positive for diabetes and hypertension. REVIEW OF SYSTEMS: Difficult to obtain secondary to the patient's medical condition. Since she has been here, no gross hematochezia or melena, no gross hematuria, no hematemesis, no hemoptysis. She has had some emesis. No witnessed seizures. No new-onset focal weakness. Review of systems is otherwise unobtainable or as in the body of the history above. PHYSICAL EXAMINATION: VITAL SIGNS: At presentation in the emergency room, she was afebrile, temperature 96.9 degrees Fahrenheit, pulse was 133, respiratory rate 42, blood pressure 131/85, O2 sats 100%, inspired oxygen concentration at that time was not recorded. When I stopped by to see her, she was 98% on room air. GENERAL: She is a young female. She looks unkempt. She is normocephalic. She is atraumatic. She is talking to me in sometimes slurred speech with mildly increased respiratory effort at rest. HEAD, EYES, EARS, NOSE AND THROAT: She is anicteric. No conjunctival erythema. Oropharynx is dry. Oropharynx is a Mallampati #2 oropharynx. No gross jugular venous distention, no palpable lymph nodes in the supraclavicular or submandibular lymph node chains. LUNGS: Auscultation of both lung cope are unremarkable. Lungs are clear bilaterally. HEART: Heart sounds 1 and 2 are heard. They were regular in rate and rhythm at the time of my evaluation without rubs or murmurs. ABDOMEN: Soft, tender diffusely. Bowel sounds are positive. No palpable hepatosplenomegaly. EXTREMITIES: Without overt digital clubbing, cyanosis, or pedal edema. NEUROLOGIC: Pupils are equal, round, about 4 mm, reactive to light. Extraocular muscle movements are intact. She moves all 4 extremities. The skin is of poor turgor. She has dry skin to the lower extremities, some areas of abrasion/scratches on the legs. No decubitus ulcers. LABORATORY DATA: From my review are as follows: Admission white cell count 19,900, hemoglobin 12.1, hematocrit 40.6, and platelet count 521. No band forms. Venous blood gas showed a pH of 7.16 at presentation. Serum sodium 140, potassium 4.4, chloride 88, bicarbonate 6, BUN 28, creatinine 1.5, glucose 741. Lactic acid level was within normal limits. Liver function tests: ALT was up at 65, otherwise essentially within normal limits. Urine test was negative. Urinalysis was negative for nitrites and leukocyte esterase. She was spilling glucose. Urine drug screen was presumptive positive for amphetamines. MICROBIOLOGY STUDIES: Blood cultures, no growth to date. Chest x-ray was done at admission. I had trouble pulling up the film. No radiographic evidence of an acute pulmonary process by the reading radiologist. ASSESSMENT AND PLAN: 1. Sepsis syndrome. 2. Diabetic ketoacidosis. 3. Leukocytosis. 4. Acute kidney injury. 5. Acute encephalopathy. 6. Severe metabolic acidosis. 7. Elevated serum transaminases. 8. Positive drug screen for amphetamines. PLAN: We will continue empiric Levaquin monotherapy. We will get CRP levels and lactic acid levels and trend as necessary to help make clinical decisions and for antibiotic de-escalation. She has received adequate volume resuscitation and she continues to be on IV drip per the DKA protocol. We will continue IV insulin until the anion gap closes. She will remain n.p.o. for now. Substance abuse counseling will be done once she is better and mental status is improved. Electrolytes will be followed and corrected as necessary. She will be placed on GI prophylaxis as well as DVT prophylaxis. Flu and pneumonia vaccination will be addressed per protocol. Thank you very much for the consult. We will follow along and make further recommendations as picture progresses/becomes clearer. She is critically ill, on life-sustaining interventions including the IV insulin, at high risk for further deterioration in the renal, cardiovascular, endocrine systems including the risks of . At this time, I spent about 30-35 minutes of critical care time without overlap and excluding any procedural time that may be necessary. JOB# [id number] YESY/ANTONI
[2018-11-25] MEDS: NACL 0.45% 1000 ML 1,000 ML IV SCH (06:45)
--- NOTE | 2018-11-25 07:54 | Progress Note ---
Assessment and Plan Assessment and plan: 28F who presents with ams, brought in by family for vomiting x2 days, she was unable to give hx at time of admission due to AMS, per family she was not taking her insulin. Patient claims her insulin pump had malfunctioned pmh; hypertension, diabetes, seizure disorder, psychosis, nicotine dependence, IgA deficiency, medication nonadherence, active use of amphetamines UDS post for meth UA neg for pyuria CXR no acute findings Diagnosis -Amphetamine abuse -DKA -uncontrolled DM -Acute toxic and metabolic encephalopathy -Seizure disorder -HTN -TAMIKO- ruled out -Hypokalemia -Dehydration -SIRS, without organ dysfunction; no evidence of sepsis intractable n/v non adherence, insulin pump malfunction Plan -counseled about meth cessation cont insulins -K repleted -mentation improving a1c 12.8 antiemetics as needed, IV fluids -highly doubt she was compliant with bolusing on her insulin pump dispo; home when tolerating PO, and glucose better controlled, anticipate dc in 1-2 days History Interval history: Review of systems Constitutional: No fevers, c/o gen weakness CVS: No chest pain, no orthopnea, no dyspnea on exertion, no pedal edema GI: No abdominal pain, no diarrhea, no vomiting, no constipation Respiratory: No shortness of breath, no wheezing, no coughing Hospitalist Physical - Physical exam Narrative exam: General.: somnolent HEENT: Moist mucous membranes, extraocular muscles intact, no lymphadenopathy Neck: supple Cardiac: S1-S2 heard Lungs: clear to auscultation bilaterally Abdomen: soft , nontender, nondistended, bowel sounds positive Extremities: no edema clubbing or cyanosis Skin: no rash or lesions Neurologic: no gross focal deficits Psych: calm, and cooperative - Constitutional Vitals: Temp Pulse Resp BP Pulse Ox 98.5 F 100 H 18 101/58 97 11/25/18 05:02 11/25/18 05:02 11/25/18 05:02 11/25/18 05:02 11/25/18 05:02 General appearance: Present: severe distress, cachectic, disheveled Results - Labs CBC & Chem 7: 11/24/18 04:41 11/24/18 04:41 Labs: Laboratory Last Values WBC 11.1 K/mm3 (4.5-11.0) H 11/24/18 04:41 RBC 3.95 M/mm3 (3.65-5.03) 11/24/18 04:41 Hgb 11.7 gm/dl (10.1-14.3) 11/24/18 04:41 Hct 36.3 % (30.3-42.9) 11/24/18 04:41 MCV 92 fl (79-97) 11/24/18 04:41 MCH 30 pg (28-32) 11/24/18 04:41 MCHC 32 % (30-34) 11/24/18 04:41 RDW 13.9 % (13.2-15.2) 11/24/18 04:41 Plt Count 362 K/mm3 (140-440) 11/24/18 04:41 Lymph % (Auto) 12.3 % (13.4-35.0) L 11/24/18 04:41 [place] % (Auto) 5.9 % (0.0-7.3) 11/24/18 04:41 Eos % (Auto) 0.4 % (0.0-4.3) 11/24/18 04:41 Baso % (Auto) 0.3 % (0.0-1.8) 11/24/18 04:41 Lymph # 1.4 K/mm3 (1.2-5.4) 11/24/18 04:41 [place] # 0.7 K/mm3 (0.0-0.8) 11/24/18 04:41 Eos # 0.0 K/mm3 (0.0-0.4) 11/24/18 04:41 Baso # 0.0 K/mm3 (0.0-0.1) 11/24/18 04:41 Seg Neutrophils % 81.1 % (40.0-70.0) H 11/24/18 04:41 Seg Neutrophils # 9.0 K/mm3 (1.8-7.7) H 11/24/18 04:41 VBG pH 7.158 (7.320-7.420) L* 11/22/18 10:03 Sodium 138 mmol/L (137-145) D 11/24/18 04:41 Potassium 4.3 mmol/L (3.6-5.0) D 11/24/18 04:41 Chloride 100.6 mmol/L (98-107) 11/24/18 04:41 Carbon Dioxide 11 mmol/L (22-30) L D 11/24/18 04:41 Anion Gap 31 mmol/L 11/24/18 04:41 BUN 9 mg/dL (7-17) 11/24/18 04:41 Creatinine 0.6 mg/dL (0.7-1.2) L 11/24/18 04:41 Estimated GFR > 60 ml/min 11/24/18 04:41 BUN/Creatinine Ratio 15 % 11/24/18 04:41 Glucose 466 mg/dL (65-100) H 11/24/18 04:41 POC Glucose 237 (70-105) H 11/24/18 22:10 Hemoglobin A1c 12.8 % (4-6) H 11/22/18 10:03 Lactic Acid 0.70 mmol/L (0.7-2.0) 11/22/18 19:38 Calcium 8.5 mg/dL (8.4-10.2) 11/24/18 04:41 Phosphorus 6.80 mg/dL (2.5-4.5) H 11/22/18 10:03 Magnesium 2.20 mg/dL (1.7-2.3) 11/22/18 10:03 Total Bilirubin 0.90 mg/dL (0.1-1.2) 11/22/18 10:03 Direct Bilirubin 0.3 mg/dL (0-0.2) H 11/22/18 10:03 Indirect Bilirubin 0.6 mg/dL 11/22/18 10:03 AST 24 units/L (5-40) 11/22/18 10:03 ALT 65 units/L (7-56) H 11/22/18 10:03 Alkaline Phosphatase 209 units/L (35-129) H 11/22/18 10:03 Total Protein 7.7 g/dL (6.3-8.2) 11/22/18 10:03 Albumin 4.2 g/dL (3.9-5) 11/22/18 10:03 Albumin/Globulin Ratio 1.2 % 11/22/18 10:03 Triglycerides 147 mg/dL (2-149) 11/22/18 10:03 Cholesterol 111 mg/dL (50-199) 11/22/18 10:03 LDL Cholesterol Direct 44 mg/dL (50-130) L 11/22/18 10:03 HDL Cholesterol 48 mg/dL (40-59) 11/22/18 10:03 Cholesterol/HDL Ratio 2.31 % 11/22/18 10:03 HCG, Qual Negative (Negative) 11/22/18 10:58 Urine Color Straw (Yellow) 11/22/18 13:55 Urine Turbidity Clear (Clear) 11/22/18 13:55 Urine pH 5.0 (5.0-7.0) 11/22/18 13:55 Ur Specific [place] 1.015 (1.003-1.030) 11/22/18 13:55 Urine Protein <15 mg/dl mg/dL (Negative) 11/22/18 13:55 Urine Glucose (UA) >=500 mg/dL (Negative) 11/22/18 13:55 Urine Ketones 80 mg/dL (Negative) 11/22/18 13:55 Urine Blood Sm (Negative) 11/22/18 13:55 Urine Nitrite Neg (Negative) 11/22/18 13:55 Urine Bilirubin Neg (Negative) 11/22/18 13:55 Urine Urobilinogen < 2.0 mg/dL (<2.0) 11/22/18 13:55 Ur Leukocyte Esterase Neg (Negative) 11/22/18 13:55 Urine WBC (Auto) 2.0 /HPF (0.0-6.0) 11/22/18 13:55 Urine RBC (Auto) 1.0 /HPF (0.0-6.0) 11/22/18 13:55 U Epithel Cells (Auto) 1.0 /HPF (0-13.0) 11/22/18 13:55 Urine Creatinine 32.0 mg/dL (0.1-20.0) H 11/22/18 13:55 Urine Microalbumin 1.3 mg/dL (0.1-34.0) 11/22/18 13:55 Microalb/Creat Ratio 40.6 ug/mg 11/22/18 13:55 Urine Opiates Screen Presumptive negative 11/22/18 13:55 Urine Methadone Screen Presumptive negative 11/22/18 13:55 Ur Barbiturates Screen Presumptive negative 11/22/18 13:55 Ur Phencyclidine Scrn Presumptive negative 11/22/18 13:55 Ur Amphetamines Screen Presumptive positive 11/22/18 13:55 U Benzodiazepines Scrn Presumptive negative 11/22/18 13:55 Urine Cocaine Screen Presumptive negative 11/22/18 13:55 U Marijuana (THC) Screen Presumptive negative 11/22/18 13:55 Drugs of Abuse Note Disclamer 11/22/18 13:55 Nutrition/Malnutrition Assess - Dietary Evaluation Nutrition/Malnutrition Findings: Nutrition Notes Start: 11/23/18 14:41 Freq: Status: Active Protocol: Document 11/24/18 13:52 CARLOS (Rec: 11/24/18 13:54 CARLOS [email or web address]) Nutrition Notes Initial or Follow up Brief Note Current Diet Consistent CHO Subjective/Other Information Pt sleeping soundly at time of visit (12:16). Nutrition Intervention Follow-Up By: 11/25/18 Additional Comments F/U: DM diet education needs ( A1c, Food sources of CHO)
[2018-11-25] MEDS ORDERED: LANTUS SUB-Q SCH (08:00)
[2018-11-25] MEDS: HumaLOG SUB-Q SCH ×5 (08:46→21:49)
[2018-11-25] MEDS: ZOVIRAX PO SCH ×2 (09:08→21:13)
[2018-11-25] MEDS: KEPPRA PO SCH ×2 (09:09→21:13)
[2018-11-25] MEDS: HABITROL TD SCH (09:09)
[2018-11-25] MEDS: PEPCID PO SCH (09:09)
[2018-11-25] MEDS: ZESTRIL PO SCH (09:09)
[2018-11-25] MEDS: celeXA PO SCH (09:09)
[2018-11-25] MEDS: LOVENOX SUB-Q SCH (09:10)
[2018-11-25] MEDS: LANTUS SUB-Q SCH (09:10)
[2018-11-25] MEDS: PERCOCET 5/325 PO PRN ×2 (09:21→17:37)
[2018-11-25] MEDS: ANTIBIOTIC OINT TP SCH ×2 (09:29→21:15)
[2018-11-25] MEDS: LEVAQUIN PO SCH (11:30)
[2018-11-25] MEDS: SODIUM CHLORIDE FLUSH SYRINGE 10 ML IV SCH ×2 (11:31→21:13)
[2018-11-25] MEDS: REGLAN IV PRN (13:05)
--- NOTE | 2018-11-25 14:24 | Progress Note ---
Assessment and Plan Patient sleeping on room air.O2 saturation 97%. No acute respiratory distress. Patient afebrile. - Patient Problems (1) DKA (diabetic ketoacidosis) Current Visit: Yes Status: Acute Qualifiers: Diabetes mellitus type: type 1 Diabetes mellitus complication detail: with coma Qualified Code(s): E10.11 - Type 1 diabetes mellitus with ketoacidosis with coma Plan to address problem: Continue I/V fluids and Insulin. Management as per primary care. (2) Sepsis Current Visit: Yes Status: Acute Qualifiers: Sepsis type: sepsis due to unspecified organism Qualified Code(s): A41.9 - Sepsis, unspecified organism Plan to address problem: Patient afebrile, Mild leukocytosis. Patient is on I/V Levaquin. (3) ARF (acute renal failure) with tubular necrosis Current Visit: Yes Status: Acute Plan to address problem: Management as per nephrology. (4) Tobacco abuse counseling Current Visit: No Status: Acute Plan to address problem: Going to [facility] to stop smoking. Patient presently on deep sleep. Subjective Date of service: 11/25/18 Principal diagnosis: SIRS; DKA; TAMIKO; Acute Encephalopathy; Metabolic Acidosis; H/O IgA deff Interval history: Patient sleeping on room air.O2 saturation 97%. No acute respiratory distress. Patient afebrile. Objective Vital Signs - 12hr 11/25/18 11/25/18 11/25/18 05:02 09:09 12:00 Temperature 98.5 F Pulse Rate 100 H 87 68 Respiratory 18 16 Rate Blood Pressure 101/58 135/86 Blood Pressure 137/88 [Right] O2 Sat by Pulse 97 Oximetry Constitutional: no acute distress, asleep, other (young CF, normocephalic and atraumatic with normal respiratory effort at rest) Eyes: non-icteric ENT: oropharynx moist Neck: supple, no lymphadenopathy, no JVD Effort: normal Ascultation: Bilateral: diminished breath sounds Percussion: Bilateral: not dull Cardiovascular: regular rate and rhythm Gastrointestinal: normoactive bowel sounds, soft, tender, non-distended Integumentary: other (excoriations to lower extremity) Extremities: no cyanosis, no edema, pink and warm, pulses normal Neurologic: normal mental status, non-focal exam, pupils equal and round, CN II- XII normal Psychiatric: anxious CBC and BMP: 11/24/18 04:41 11/24/18 04:41 Abnormal lab findings: Abnormal Labs 11/22/18 11/22/18 11/22/18 09:59 10:03 10:03 WBC 19.9 H Plt Count 521 H Lymph % (Auto) 7.1 L [place] # 0.9 H Seg Neutrophils % 88.2 H Seg Neutrophils # 17.5 H VBG pH Sodium Potassium Chloride 88.3 L Carbon Dioxide 6 L* BUN 28 H Creatinine 1.5 H Glucose 741 H* POC Glucose > 500 H Hemoglobin A1c Lactic Acid Calcium Phosphorus Direct Bilirubin ALT Alkaline Phosphatase LDL Cholesterol Direct Urine Creatinine 11/22/18 11/22/18 11/22/18 10:03 10:03 10:03 WBC Plt Count Lymph % (Auto) [place] # Seg Neutrophils % Seg Neutrophils # VBG pH 7.158 L* Sodium Potassium Chloride Carbon Dioxide BUN Creatinine Glucose POC Glucose Hemoglobin A1c 12.8 H Lactic Acid Calcium Phosphorus 6.80 H Direct Bilirubin 0.3 H ALT 65 H Alkaline Phosphatase 209 H LDL Cholesterol Direct 44 L Urine Creatinine 11/22/18 11/22/18 11/22/18 11:43 12:51 12:54 WBC Plt Count Lymph % (Auto) [place] # Seg Neutrophils % Seg Neutrophils # VBG pH Sodium 146 H Potassium 3.4 L D Chloride Carbon Dioxide 10 L BUN 23 H Creatinine 1.3 H Glucose 292 H POC Glucose 411 H 278 H Hemoglobin A1c Lactic Acid Calcium Phosphorus Direct Bilirubin ALT Alkaline Phosphatase LDL Cholesterol Direct Urine Creatinine 11/22/18 11/22/18 11/22/18 13:42 13:55 14:10 WBC Plt Count Lymph % (Auto) [place] # Seg Neutrophils % Seg Neutrophils # VBG pH Sodium Potassium Chloride Carbon Dioxide BUN Creatinine Glucose POC Glucose 252 H Hemoglobin A1c Lactic Acid 2.30 H* Calcium Phosphorus Direct Bilirubin ALT Alkaline Phosphatase LDL Cholesterol Direct Urine Creatinine 32.0 H 11/22/18 11/22/18 11/22/18 15:11 15:44 16:05 WBC Plt Count Lymph % (Auto) [place] # Seg Neutrophils % Seg Neutrophils # VBG pH Sodium 149 H Potassium Chloride 108.4 H Carbon Dioxide 20 L D BUN 19 H Creatinine Glucose 158 H POC Glucose 190 H 167 H Hemoglobin A1c Lactic Acid Calcium 7.8 L Phosphorus Direct Bilirubin ALT Alkaline Phosphatase LDL Cholesterol Direct Urine Creatinine 11/22/18 11/22/18 11/22/18 17:09 18:15 19:14 WBC Plt Count Lymph % (Auto) [place] # Seg Neutrophils % Seg Neutrophils # VBG pH Sodium Potassium Chloride Carbon Dioxide BUN Creatinine Glucose POC Glucose 127 H 128 H 135 H Hemoglobin A1c Lactic Acid Calcium Phosphorus Direct Bilirubin ALT Alkaline Phosphatase LDL Cholesterol Direct Urine Creatinine 11/22/18 11/22/18 11/22/18 19:38 20:00 21:10 WBC Plt Count Lymph % (Auto) [place] # Seg Neutrophils % Seg Neutrophils # VBG pH Sodium 146 H Potassium Chloride 108.4 H Carbon Dioxide 19 L BUN Creatinine Glucose 148 H POC Glucose 151 H 206 H Hemoglobin A1c Lactic Acid Calcium 7.8 L Phosphorus Direct Bilirubin ALT Alkaline Phosphatase LDL Cholesterol Direct Urine Creatinine 11/22/18 11/22/18 11/22/18 22:05 23:14 23:53 WBC Plt Count Lymph % (Auto) [place] # Seg Neutrophils % Seg Neutrophils # VBG pH Sodium Potassium Chloride Carbon Dioxide BUN Creatinine Glucose POC Glucose 201 H 161 H 138 H Hemoglobin A1c Lactic Acid Calcium Phosphorus Direct Bilirubin ALT Alkaline Phosphatase LDL Cholesterol Direct Urine Creatinine 11/23/18 11/23/18 11/23/18 01:03 02:00 02:52 WBC Plt Count Lymph % (Auto) [place] # Seg Neutrophils % Seg Neutrophils # VBG pH Sodium Potassium 3.3 L Chloride 108.7 H Carbon Dioxide BUN Creatinine Glucose 155 H POC Glucose 140 H 124 H Hemoglobin A1c Lactic Acid Calcium 8.0 L Phosphorus Direct Bilirubin ALT Alkaline Phosphatase LDL Cholesterol Direct Urine Creatinine 11/23/18 11/23/18 11/23/18 03:12 05:05 06:19 WBC Plt Count Lymph % (Auto) [place] # Seg Neutrophils % Seg Neutrophils # VBG pH Sodium Potassium Chloride Carbon Dioxide BUN Creatinine Glucose POC Glucose 133 H 145 H 110 H Hemoglobin A1c Lactic Acid Calcium Phosphorus Direct Bilirubin ALT Alkaline Phosphatase LDL Cholesterol Direct Urine Creatinine 11/23/18 11/23/18 11/23/18 07:05 08:14 09:11 WBC Plt Count Lymph % (Auto) [place] # Seg Neutrophils % Seg Neutrophils # VBG pH Sodium Potassium Chloride Carbon Dioxide BUN Creatinine Glucose POC Glucose 145 H 126 H 116 H Hemoglobin A1c Lactic Acid Calcium Phosphorus Direct Bilirubin ALT Alkaline Phosphatase LDL Cholesterol Direct Urine Creatinine 11/23/18 11/23/18 11/23/18 10:04 11:37 13:08 WBC Plt Count Lymph % (Auto) [place] # Seg Neutrophils % Seg Neutrophils # VBG pH Sodium 146 H Potassium 3.2 L Chloride 110.7 H Carbon Dioxide BUN Creatinine 0.6 L Glucose POC Glucose 145 H 116 H Hemoglobin A1c Lactic Acid Calcium 8.3 L Phosphorus Direct Bilirubin ALT Alkaline Phosphatase LDL Cholesterol Direct Urine Creatinine 11/23/18 11/23/18 11/24/18 16:59 21:19 04:41 WBC 11.1 H Plt Count Lymph % (Auto) 12.3 L [place] # Seg Neutrophils % 81.1 H Seg Neutrophils # 9.0 H VBG pH Sodium Potassium Chloride Carbon Dioxide BUN Creatinine Glucose POC Glucose 209 H 229 H Hemoglobin A1c Lactic Acid Calcium Phosphorus Direct Bilirubin ALT Alkaline Phosphatase LDL Cholesterol Direct Urine Creatinine 11/24/18 11/24/18 11/24/18 04:41 05:34 08:10 WBC Plt Count Lymph % (Auto) [place] # Seg Neutrophils % Seg Neutrophils # VBG pH Sodium Potassium Chloride Carbon Dioxide 11 L D BUN Creatinine 0.6 L Glucose 466 H POC Glucose 386 H 275 H Hemoglobin A1c Lactic Acid Calcium Phosphorus Direct Bilirubin ALT Alkaline Phosphatase LDL Cholesterol Direct Urine Creatinine 11/24/18 11/24/18 11/24/18 11:24 16:13 22:10 WBC Plt Count Lymph % (Auto) [place] # Seg Neutrophils % Seg Neutrophils # VBG pH Sodium Potassium Chloride Carbon Dioxide BUN Creatinine Glucose POC Glucose 120 H 172 H 237 H Hemoglobin A1c Lactic Acid Calcium Phosphorus Direct Bilirubin ALT Alkaline Phosphatase LDL Cholesterol Direct Urine Creatinine 11/25/18 11/25/18 07:52 11:12 WBC Plt Count Lymph % (Auto) [place] # Seg Neutrophils % Seg Neutrophils # VBG pH Sodium Potassium Chloride Carbon Dioxide BUN Creatinine Glucose POC Glucose 145 H 131 H Hemoglobin A1c Lactic Acid Calcium Phosphorus Direct Bilirubin ALT Alkaline Phosphatase LDL Cholesterol Direct Urine Creatinine Chest x-ray: report reviewed (No acute cardiopulmonary process.), image reviewed Allied health notes reviewed: nursing
[2018-11-25] MEDS: PAMELOR PO SCH (21:13)
[2018-11-26] MEDS: PERCOCET 5/325 PO PRN ×2 (01:18→08:23)
[2018-11-26] MEDS: REGLAN IV PRN ×2 (01:20→08:24)
[2018-11-26] MEDS: HumaLOG SUB-Q SCH ×3 (08:25→16:30)
[2018-11-26] MEDS: LANTUS SUB-Q SCH (08:26)
[2018-11-26] MEDS: ZOVIRAX PO SCH (10:52)
[2018-11-26] MEDS: LOVENOX SUB-Q SCH (10:52)
[2018-11-26] MEDS: HABITROL TD SCH (10:52)
[2018-11-26] MEDS: KEPPRA PO SCH (10:53)
[2018-11-26] MEDS: ZESTRIL PO SCH (10:53)
[2018-11-26] MEDS: PEPCID PO SCH (10:53)
[2018-11-26] MEDS: celeXA PO SCH (10:53)
[2018-11-26] MEDS: ANTIBIOTIC OINT TP SCH (10:54)
[2018-11-26] MEDS: SODIUM CHLORIDE FLUSH SYRINGE 10 ML IV SCH (11:02)
[2018-11-26] MEDS: LEVAQUIN PO SCH (11:02)
--- NOTE | 2018-11-26 12:16 | Discharge Summary ---
Providers - Providers Date of Admission: 11/22/18 11:08 Attending physician: SUJATHA ALMAGUER MD 11/22/18 10:41 Consult to Case Management [CONS] Routine Services Needed at Discharge: House Painter Helper Notified:: cm Consult to Dietitian/Nutrition [CONS] Routine Physician Instructions: Reason For Exam: Reason for Consult: Diet education 11/22/18 11:10 Consult to Physician [CONS] Routine Comment: DR Miguel Jeronimo/Jasmyne NOTIFIED GANESH [id number] Consulting Provider: ALEX ARAGON Physician Instructions: Reason For Exam: dka Primary care physician: [employer] SUPERVISOR Hospitalization Condition: Stable Hospital course: 28F who presents with ams, brought in by family for vomiting x2 days, she was unable to give hx at time of admission due to AMS, per family she was not taking her insulin. Patient claims her insulin pump had malfunctioned pmh; hypertension, diabetes, seizure disorder, psychosis, nicotine dependence, IgA deficiency, medication nonadherence, active use of amphetamines UDS post for meth UA neg for pyuria CXR no acute findings hospital course -counseled about meth cessation She was treated with insulin drip, IV fluids, and then transitioned to subcutaneous insulin -K repleted Her mentation improved as a nail Closed a1c 12.8 She received antiemetics and IV fluids -highly doubt she was compliant with bolusing on her insulin pump - she was planned for dc, but she eloped with her boyfriend Diagnosis -Amphetamine abuse -DKA -uncontrolled DM -Acute toxic and metabolic encephalopathy -Seizure disorder -HTN -TAMIKO- ruled out -Hypokalemia -Dehydration -SIRS, without organ dysfunction; no evidence of sepsis intractable n/v non adherence, insulin pump malfunction Disposition: [id number] LEFT AGAINST MED ADVICE Time spent for discharge: 33 minutes Core Measure Documentation - Palliative Care Palliative Care/ Comfort Measures: Not Applicable - Core Measures Any of the following diagnoses?: none Exam - Constitutional Vitals: Temp Pulse Resp BP Pulse Ox 98.1 F 94 H 20 115/72 91 11/26/18 04:10 11/26/18 10:53 11/26/18 08:32 11/26/18 04:10 11/26/18 04:10 General appearance: Present: no acute distress, well-nourished - EENT Eyes: Present: PERRL ENT: hearing intact, clear oral mucosa - Neck Neck: Present: supple, normal ROM - Respiratory Respiratory effort: normal Respiratory: bilateral: CTA - Cardiovascular Heart Sounds: Present: S1 & S2. Absent: rub, click - Extremities Extremities: pulses symmetrical, No edema Peripheral Pulses: within normal limits - Abdominal General gastrointestinal: Present: soft, non-tender, non-distended, normal bowel sounds Female genitourinary: Present: normal - Integumentary Integumentary: Present: clear, warm, dry - Musculoskeletal Musculoskeletal: gait normal, strength equal bilaterally - Psychiatric Psychiatric: appropriate mood/affect, intact judgment & insight - Neurologic Neurologic: CNII-XII intact, moves all extremities Plan Follow up with: PRIMARY CARE,MD [Primary Care Provider] - 7 Days Prescriptions: RX: Nortriptyline [Pamelor] 25 mg PO QHS #30 capsule RX: Acyclovir [Zovirax] 400 mg PO BID #60 tablet RX: Citalopram [celeXA] 10 mg PO QDAY #30 tablet RX: Insulin Glargine [Lantus VIAL] 15 units SUB-Q QAMDIAB 30 Days #1 vial RX: Insulin Lispro [HumaLOG VIAL] 0 units SQ AC #1 vial RX: levETIRAcetam [Keppra TAB] 500 mg PO BID #60 tablet RX: Lisinopril [Zestril TAB] 20 mg PO QDAY #30 tablet RX: Nicotine [Habitrol] 14 mg TD QDAY #30 patch Ondansetron [Zofran Odt] 4 mg PO Q8HR PRN #30 tab.rapdis PRN Reason: Nausea RX: Promethazine [Phenergan SUPPOS] 25 mg OK Q6H PRN #30 supp.rect PRN Reason: Nausea And Vomiting
[2018-11-26 18:23] VITALS: BP 174/124
== END 2018-11-26 18:30 | disposition home or self-care (01) | DRG 919 ==
LOC: ED 09:54 → CC1 11:08 → 3A 11-24 17:01
PROVIDERS: ADMIT Internal Medicine; ATTEND Internal Medicine
DX: T85.614A Breakdown (mechanical) of insulin pump, initial encounter (principal); E10.10 Type 1 diabetes mellitus with ketoacidosis without coma; G92 Toxic encephalopathy; Z88.5 Allergy status to narcotic agent; Z88.0 Allergy status to penicillin; Z88.2 Allergy status to sulfonamides; Z88.8 Allergy status to other drugs, medicaments and biological substances; Z79.899 Other long term (current) drug therapy; I10 Essential (primary) hypertension; J45.909 Unspecified asthma, uncomplicated; Z90.49 Acquired absence of other specified parts of digestive tract; F17.200 Nicotine dependence, unspecified, uncomplicated; G40.909 Epilepsy, unspecified, not intractable, without status epilepticus; Z83.3 Family history of diabetes mellitus; Z82.49 Family history of ischemic heart disease and other diseases of the circulatory system; Z91.19 Patient's noncompliance with other medical treatment and regimen; F15.10 Other stimulant abuse, uncomplicated; R65.10 Systemic inflammatory response syndrome (SIRS) of non-infectious origin without acute organ dysfunction; E87.6 Hypokalemia; E86.0 Dehydration; Z71.51 Drug abuse counseling and surveillance of drug abuser; Y83.8 Other surgical procedures as the cause of abnormal reaction of the patient, or of later complication, without mention of misadventure at the time of the procedure; Y92.89 Other specified places as the place of occurrence of the external cause
CPT/HCPCS: 36415; 71045; 80048; 80061; 80076; 80307; 81001; 82043; 82140; 82805; 82962; 83036; 83735; 84100; 84703; 85025; 87040; 87086; 99406; G0378; J1650; J1815; J1956; J2270; J2405; J2765; J3480; J7030